=== PATIENT | female | born 1990 | race Caucasian/White ===

== ENCOUNTER → 2020-03-09 | Outpatient (CLI) | payer OTHER, MEDICAID, SELFPAY ==
[2020-02-23 10:11] VITALS: BMI 23.7
--- NOTE | 2020-03-09 12:56 | ECHOD_ITS ---
Version 2 Reason For Study: VSD Procedure This was a 2D Doppler, Color Flow transthoracic echocardiogram. Exam performed in department. Left Ventricle Normal LV size. Small membranous VSD noted. Left ventricular systolic function is normal. The estimated ejection fraction is 65 %. No regional wall motion abnormalities noted. Right Ventricle Normal RV size. Normal systolic function. Atria Normal left atrium. Normal right atrium. Mitral Valve Normal mitral valve. Tricuspid Valve Normal tricuspid valve. Mild tricuspid valve insufficiency. Pulmonary artery systolic pressure is 34 mmHg. Aortic Valve Normal aortic valve. Trisinus/trileaflet aortic valve. Pulmonic Valve Normal pulmonic valve. Great Vessels Normal aortic root. The pulmonary artery is normal size. Normal inferior vena cava. Pericardium/Pleural No pericardial effusion. MMode/2D Measurements & Calculations LVIDd: 4.6 cm IVSd: 0.76 cm Ao root diam: 2.7 cm LVIDs: 3.1 cm LVPWd: 0.82 cm RVDd: 3.5 cm FS: 32.9 % LAV(MOD-bp): 46.9 ml LVAd ap4: 31.0 cm2 SV(MOD-sp4): 48.5 ml LAV(MOD-bp) Indexed: 26.2 ml/m2 EDV(MOD-sp4): 89.7 ml LAV(MOD-sp2): 36.9 ml EDV(sp4-el): 93.7 ml LAV(MOD-sp4): 54.3 ml LVAs ap4: 18.5 cm2 ESV(MOD-sp4): 41.1 ml ESV(sp4-el): 42.0 ml EF(MOD-sp4): 54.1 % EF(sp4-el): 55.2 % SV(sp4-el): 51.8 ml LA A4 area: 19.5 cm2 LA dimension(2D): 3.1 cm RA A4 area: 12.8 cm2 Time Measurements MV dec time: 0.19 sec Doppler Measurements & Calculations MV E max jacek: 100.1 cm/sec Lat Peak E' Jacek: 16.1 cm/sec Med Peak E' Jacek: 11.5 cm/sec MV A max jacek: 85.0 cm/sec E/E' lat: 6.2 E/E' med: 8.7 MV E/A: 1.2 Ao V2 max: 140.8 cm/sec LV V1 max: 119.5 cm/sec PA V2 max: 139.5 cm/sec Ao max P.9 mmHg LV V1 max P.7 mmHg PI end-d jacek: 92.6 cm/sec TR max jacek: 271.1 cm/sec TR max P.9 mmHg Interpretation Summary Normal LV size. Left ventricular systolic function is normal. The estimated ejection fraction is 65 %. Small membranous VSD noted Pulmonary artery systolic pressure is 34 mmHg. Ordering Physician: Leonardo Navarrete Referring Physician: GRISELDA ZAFAR III Performed By: Irma Mar, RDCS, RVT
== END | disposition home or self-care (01) ==
LOC: CVS 12:56
PROVIDERS: PCP Family Medicine; Referring Provider Internal Medicine Cardiovascular Disease; Visit Provider Internal Medicine Cardiovascular Disease
DX: Q21.0 Ventricular septal defect (principal)
CPT/HCPCS: 93306

== ENCOUNTER 2020-03-12 09:10 | Emergency (ER) | payer OTHER, MEDICAID, SELFPAY ==
[2020-02-23 10:11] VITALS: BMI 23.7
[2020-03-12 09:11] VITALS: BP 139/89; PULSE 115; RESP 16; TEMP 36.4; O2SAT 100; BMI 22.1
[2020-03-12 09:57] LABS: Bacteria 0 SEEN /hpf (None Seen); Color, Urine Yellow (Yellow); Glucose, Dipstick Normal (Normal); Ketone-Dipstick 5 mg/dl (Negative); Leukocyte Esterase-Dipstick 500 /ul (Negative); Mucous, Urine 0 SEEN /hpf (<or=2+); Nitrite-Dipstick Negative (Negative); Occult Blood-Urine 10 /ul (Negative); Protein-Dipstick Negative (Negative); Red Blood Cells-Urine 0 SEEN /hpf (0-5); Urine Bilirubin Dipstick Negative (Negative); Urine Clarity Clear (Clear); Urine Urobilinogen Normal (Normal); Urine pH 6.5 (5.0 - 8.0)
[2020-03-12 10:03] LABS: Squamous Epithelial Cells - UA 0-5 SEEN /hpf (5-10); White Blood Cells 0-5 SEEN /hpf (0-5)
[2020-03-12] MEDS: 0.9% Normal Saline 1,000 ML 1000 ML IV (10:16)
[2020-03-12] MEDS: Ondansetron 4 MG/2 ML Vial IV (10:16)
--- NOTE | 2020-03-12 10:17 | ED.VIS.GEN ---
History of Present Illness Chief Complaint: Cold Sx Informant: Patient, Family Onset: Days Current Severity: Mild Maximum Severity: Mild Narrative: Patient reports she is about 15 weeks , G4, P3 uncomplicated to date she reports vomiting and diarrhea nasal congestion since , her been uncomplicated she has a live IUP based on evaluation by outpatient providers, no vaginal bleeding no abdominal pain diarrhea is copious has gotten slightly better but the vomiting has persisted and she is developed rhinorrhea. She has had no exposure to coronavirus that she knows of tainted food or sick individuals she has no GI history ailment except she reports as a youth she had pyloric stenosis surgery and she has a VSD that is stable Past Medical History - Allergies and Home Meds Allergies/Adverse Reactions: Allergies cephalexin Allergy (Verified 03/12/20 09:15) blisters latex Allergy (Verified 03/12/20 09:15) Rash Primary Care Physician: Clarke Platt III, MD [Primary Care Provider] - Past Medical History: - - Includes as above Smoking Status: Never smoker Review of Systems General: Denies: Chills, Fever, Sweats Eyes: Denies: Visual changes - bilaterally, Diplopia ENT: Reports: Rhinorrhea. Denies: Sore throat Cardiovascular: Denies: Chest pain, Palpitations Respiratory: Denies: Dyspnea, Cough, Dyspnea on exertion Gastrointestinal: Reports: Vomiting, Diarrhea. Denies: Abdominal pain, Nausea, Melena, Hematochezia Genitourinary: Denies: Dysuria, Hematuria, Frequency Musculoskeletal: Denies: Back pain, Extremity Pain Skin: Denies: Rash, Wounds Neurological: Denies: Headache, Weakness, Numbness Physical Exam Vital Signs/Narrative: Vital Signs Temp Pulse Resp BP Pulse Ox 03/12/20 09:11 97.6 F L 115 H 16 139/89 H 100 General: Well nourished, Well developed, No Acute Distress Head: Normocephalic, Atraumatic Eyes: Perrl, EOMI ENT: Moist mucous membranes, No rhinorrhea Neck: Supple, Nontender Cardiovascular: Regular rate, Regular rhythm, No murmurs Respiratory: No distress, CTA bilaterally, Chest nontender Abdomen: Soft, Nontender, Nondistended, Normal bowel sounds Back: Nontender, Normal Inspection Extremities: Nontender, No edema Skin: Normal color, No rash Neurological: Alert, Oriented x3, Cranial nerves II-XII grossly intact, Normal Strength, Normal Sensation Psychological: Normal affect, Normal Mood Diagnostic/Tx/Re-eval - Medical Decision Making physical exam is unremarkable HEENT chest abdomen unremarkable, clinically she looks well the diarrhea has stopped no antibiotics at this time she undergo ED evaluation to include IV fluid screening labs UA COVID screen COVID screen was negative all labs are unremarkable UA 1010 urine, she is received IV fluids taking oral fluids without difficulty no vomiting, Complain bitterly of nasal congestion and rhinorrhea as she thinks that is triggering the symptoms, reports that apparently she sat under pine trees there was quite a bit of pollen she is allergic to the above, she is complaining of the rhinorrhea so she was given Afrin nasal spray that helped quite a bit on reevaluation she is resting comfortably in bed states she feels better she is comfortable discharge home on Zofran forcing fluids vanessa and following up with her OBs Friday and return for change in symptoms Home stable Final impression rhinorrhea nasal congestion vomiting diarrhea 15 weeks symptoms improved G4, P3 ED Disposition - Plan for ED Patient: Diagnosis: Vomiting affecting Instructions: ED Nausea Vomiting Adult, Hyperemesis Gravidarum (Severe Morning Sickness) Prescriptions: Ondansetron [Zofran Odt] 4 mg PO Q8H PRN PRN #10 tab PRN Reason: Nausea Prescription Printed Referrals: Clarke Platt III, MD [Primary Care Provider] -
[2020-03-12 10:24] LABS: Absolute Lymphocyte Count 0.98 X10^3/uL (0.83-4.51); Absolute Neutrophil Count 6.1 X10^3/uL (2.0-7.7); Basophil# 0.03 X10^3/uL; Basophil% 0.4 % (0-1); Eosinophil# 0.23 X10^3/uL; Eosinophils% 2.9 % (0-5); Hematocrit 37.2 % (37-47); Lymphocyte # 0.98 X10^3/ul (4.0); Lymphocyte % 12.4 % (19-41); Mean Corp Hgb Conc 34.9 g/dL (32-36); Mean Corpuscular Hgb 30.7 pg (27.0-32.0); Mean Corpuscular Volume 87.7 fL (81-99); Mean Platelet Vol. 9.5 fl (6.2-12.0); Monocyte% 6.3 % (0-10); NRBC Flagged by Analyzer 0 % (0-5); Neutrophil # 6.11 X10^3/uL (2.7-7.7); Neutrophil % 77.4 % (47-70); Platelet Count 245 K/mm3 (150-450); RBC Distribution Width CV 12.8 % (11.6-14.6); RBC Distribution Width SD 40.6 fl (35.1-43.9); Red Blood Count 4.24 M/mm3 (4.2-5.4); White Blood Count 7.9 K/mm3 (4.4-11.0)
[2020-03-12 10:37] LABS: Anion Gap 8 (5-15); BUN 6 mg/dL (7-18); BUN/Creat Ratio 7.7 RATIO (10-20); Calcium,Total 8.8 mg/dL (8.5-10.1); Chloride 109 mmol/L (98-107); Creatinine, Serum 0.78 mg/dL (0.55-1.02); EST Glomerular Filtration Rate 92 mL/min (>60); Est Glom Filt Rate - Afr Amer 111 mL/min (>60); Estimated Creatinine Clearance 105.42 ml/min; Glucose 107 mg/dL (74-106); Potassium 3.1 mmol/L (3.5-5.1); Sodium Level 139 mmol/L (136-145)
[2020-03-12 11:01] LABS: hCG Titer Quant., Serum 40495 mIU/mL (1-3)
[2020-03-12] MEDS: Oxymetazoline 0.05% 1 SPRAY SPRAY.BTL 2 SPRAY NASAL (11:12)
[2020-03-12 11:41] LABS: Probe Check PASS; Specimen Processing Control PASS
[2020-03-12 12:56] VITALS: BP 120/68; PULSE 80; RESP 18; O2SAT 98
== END 2020-03-12 13:03 | disposition home or self-care (01) ==
LOC: ED 10:26
PROVIDERS: Physician Assistant Medical; Emergency Provider Emergency Medicine; PCP Family Medicine
DX: O21.9 Vomiting of pregnancy, unspecified (principal); O99.89 Other specified diseases and conditions complicating pregnancy, childbirth and the puerperium; R19.7 Diarrhea, unspecified; R09.81 Nasal congestion; J34.89 Other specified disorders of nose and nasal sinuses; Z3A.15 15 weeks gestation of pregnancy
CPT/HCPCS: 80048; 81001; 84702; 85025; 87635; 96361; 96374; 99283; G2023; J7030; A4216; J2405; U0003

== ENCOUNTER 2020-08-16 10:55 | Outpatient (CLI) | payer OTHER, MEDICAID, SELFPAY ==
[2020-08-16 11:12] VITALS: BP 124/91; PULSE 104; TEMP 37; O2SAT 99
[2020-08-16] MEDS: Lactated Ringers 1,000 ML 125 ML IV (11:20)
[2020-08-16 11:32] VITALS: BMI 27.8
[2020-08-16 11:55] VITALS: BP 127/81; PULSE 80
--- NOTE | 2020-08-16 12:20 | OB.TRI.NOTE ---
History of Present Illness Date of Service: 08/16/20 Was patient seen by the physician?: Yes Reason For Visit: VERSION Date of Service: 08/16/20 Final KI: 09/03/20 Gestational age: 37 Weeks and 3 Days History of Present Illness: 30 YOF multigravida for a version for breech. US confirms vtx. F/u in office in 2 days as scheduled or prn. Cervix /60/-4, unengaged. Allergies cephalexin Allergy (Verified 08/16/20 11:34) blisters latex Allergy (Verified 08/16/20 11:34) Rash sertraline [From Zoloft] Allergy (Verified 08/16/20 11:34) suicidal pediatric cocktail Allergy (Uncoded 08/16/20 11:35) stopped her heart total of 3 medications for anesthesia - Pertinent Past Medical History Medical History: Past Medical History (Last Reviewed 02/23/20 @ 14:[address] Leonardo Navarrete MD) VSD (ventricular septal defect) (Chronic) History of pre-eclampsia in prior , currently (Chronic) Anxiety and depression GBS carrier History of herpes genitalis Insomnia Intractable chronic migraine without aura Pyloric stenosis Surgical History: Past Surgical History (Last Reviewed 02/23/20 @ 14:[address] Leonardo Navarrete MD) History of wisdom tooth extraction Physical Exam Vitals: Vital Signs Temp Pulse BP Pulse Ox 98.6 F 80 127/81 H 99 08/16/20 11:12 08/16/20 11:55 08/16/20 11:55 08/16/20 11:12 NST - FHR Rate Baby A Baseline: normal Variability:: Moderate Accelerations:: 15 x 15 Decelerations:: None NST Reactive:: Yes FHR Category:: Category I Uterine Activity:: irreg ctxs
== END 2020-08-16 12:25 | disposition home or self-care (01) ==
LOC: WPOUT 11:25 → WP 12:23
PROVIDERS: PCP Family Medicine; Visit Provider Obstetrics & Gynecology
DX: O32.1XX0 Maternal care for breech presentation, not applicable or unspecified (principal); Z3A.37 37 weeks gestation of pregnancy
CPT/HCPCS: 96360; 59025; 59050; 76815; 99218; J7120; G0378

== ENCOUNTER → 2020-08-30 17:32 | Outpatient (CLI) | payer OTHER, MEDICAID, SELFPAY ==
[2020-08-16 11:32] VITALS: BMI 27.8
== END ==
PROVIDERS: PCP Family Medicine; Visit Provider Obstetrics & Gynecology
DX: Z03.818 Encounter for observation for suspected exposure to other biological agents ruled out (principal)
CPT/HCPCS: 87426; C9803

== ENCOUNTER 2020-08-31 06:45 | Inpatient (IN) | payer OTHER, MEDICAID, SELFPAY ==
[2020-08-31] VITALS (31 sets, daily range): BP systolic 101–144; BP diastolic 60–92; PULSE 71–111; RESP 16; TEMP 36.3–37.4; O2SAT 96–98; BMI 29.2
[2020-08-31 07:58] LABS: Absolute Lymphocyte Count 2.69 X10^3/uL (0.83-4.51); Absolute Neutrophil Count 7.8 X10^3/uL (2.0-7.7); Basophil# 0.05 X10^3/uL; Basophil% 0.4 % (0-1); Eosinophil# 0.19 X10^3/uL; Eosinophils% 1.7 % (0-5); Hematocrit 40.2 % (37-47); Hemoglobin 13.6 g/dL (12.0-15.0); Lymphocyte # 2.69 X10^3/ul (4.0); Lymphocyte % 23.4 % (19-41); Mean Corp Hgb Conc 33.8 g/dL (32-36); Mean Corpuscular Hgb 30.6 pg (27.0-32.0); Mean Corpuscular Volume 90.3 fL (81-99); Mean Platelet Vol. 10.9 fl (6.2-12.0); Monocyte% 5.2 % (0-10); NRBC Flagged by Analyzer 0 % (0-5); Neutrophil # 7.79 X10^3/uL (2.7-7.7); Neutrophil % 67.7 % (47-70); Platelet Count 225 K/mm3 (150-450); RBC Distribution Width CV 12.9 % (11.6-14.6); RBC Distribution Width SD 42.2 fl (35.1-43.9); Red Blood Count 4.45 M/mm3 (4.2-5.4); White Blood Count 11.5 K/mm3 (4.4-11.0)
[2020-08-31] MEDS: Lactated Ringers 1,000 ML 50 ML IV (08:01)
[2020-08-31] MEDS: Oxytocin 30 units/NS 500 ml 30 UNITS/500 ML IV.SOLN IV (08:02)
[2020-08-31 08:15] LABS: AST(SGOT) 27 U/L (15-37); Alanine Aminotransfer ALT/SGPT 25 U/L (13-56); Creatinine, Serum 0.74 mg/dL (0.55-1.02); EST Glomerular Filtration Rate 97 mL/min (>60); Est Glom Filt Rate - Afr Amer 117 mL/min (>60); Estimated Creatinine Clearance 94.25 ml/min
[2020-08-31] MEDS: Mag Hydrox/Al Hydrox/Simeth 30 ML UDC PO (08:19)
--- NOTE | 2020-08-31 09:53 | PCM.PN.BLA ---
Progress Note Cvx 2/50/-2, head well applied. AROM performed in usual fashion for clear fluid. Bloody show with cervical exam. Cont pit IOL. STROKE Vital Signs/Narrative: Vital Signs Temp Pulse BP Pulse Ox 08/31/20 08:45 87 127/77 H 97 08/31/20 07:59 99.1 F 87 128/83 H 97
--- NOTE | 2020-08-31 14:06 | PCM.HP.OB ---
History Date of Admission: 08/31/20 - L&D triage Final KI: 09/06/20 Final KI Source: US <20 weeks Gestational age: 39 Weeks and 1 Days History of this : This is a 30 year-old, -1-0-3 presents at 39 1/7 weeks gestation for e labor due to mild gestational hypertension. Her blood pressures have trended up over the last 2 weeks. She denies any headache or visual disturbances. No epigastric pain. She has had good movement. No vaginal bleeding or leaking of fluid. is complicated to date by history of preeclampsia in her prior , nausea and vomiting of , history of herpes genitalis, she has been on HSV prophylaxis and denies any signs or symptoms of an outbreak. Medical History: Medical History (Last Reviewed 02/23/20 @ 14:[address] Leonardo Navarrete MD) VSD (ventricular septal defect) (Chronic) Q21.0 History of pre-eclampsia in prior , currently (Chronic) O09.299 Anxiety and depression F41.9, F32.9 GBS carrier Z22.330 History of herpes genitalis Z86.19 Insomnia G47.00 Intractable chronic migraine without aura G43.719 Pyloric stenosis K31.1 Surgical History: Surgical History (Last Reviewed 02/23/20 @ 14:[address] Leonardo Navarrete MD) History of wisdom tooth extraction K08.409 Allergies cephalexin Allergy (Verified 08/31/20 07:16) blisters latex Allergy (Verified 08/31/20 07:16) Rash sertraline [From Zoloft] Allergy (Verified 08/31/20 07:16) suicidal pediatric cocktail Allergy (Uncoded 08/31/20 07:16) stopped her heart total of 3 medications for anesthesia Home Medications: Home Medications prenat.vits,valeri,[id number] 1 tab PO DAILY 02/22/20 topiramate 50 mg tablet 50 mg PO BID 02/22/20 Aspirin [Aspirin, Baby] 81 mg PO DAILY@0800 08/16/20 Ergocalciferol [Vitamin D] 5,000 unit PO DAILY 08/16/20 Ondansetron HCl [Zofran] 4 mg PO 08/16/20 SimETHICONE [Mylicon] 80 mg PO BID 08/16/20 Acyclovir 08/31/20 Smoking Status: Never smoker History Past Pregnancies: Past Pregnancies Delivery Date Name GA/ Weeks Outcome Route Wt Infant Sex Labor Length Anesthesia Delivery Location Provider FOB Expected Infant Delivery Method: Spontaneous Vaginal Review of Systems Constitutional: Denies: Anorexia, Chills, Fever Eyes: Denies: Blurred vision Cardiovascular: Denies: Chest Pain Respiratory: Denies: Cough, Shortness of breath at rest Gastrointestinal: Reports: Dyspepsia Genitourinary: Denies: Dysuria Gynecological: Denies: Vaginal discharge, Vaginal itching Skin: Denies: Rash Neurological: Denies: Blurred vision, Double vision, Change in Speech, Slurred speech, Confusion Hematologic/ Lymphatic: Denies: Anemia, Hx of blood clot Physical Exam Vitals: Vital Signs Temp Pulse BP Pulse Ox 98.3 F 71 129/83 H 97 08/31/20 13:26 08/31/20 13:26 08/31/20 13:26 08/31/20 13:26 General: Alert, Cooperative, No apparent distress Cardiovascular: Regular rate Lungs: Normal air movement Abdomen: Soft, Non Tender, Non-Distended, Appropriate for Gestational Age Extremities:: Deep tendon reflexes - 3+, Other - edena1+ Neurological: Cranial nerves II-XII grossly intact. Negative for: Slurred Speech [employer]: Normal external genitalia Estimated gestational size: Appropriate for gestational size Presentation: Cephalic Assessment/Plan All Active Problems (Last Reviewed 02/23/20 @ 14:[address] Leonardo Navarrete MD) 12 weeks gestation of (Acute) Fatigue (Acute) This is a 30 year-old, @ 39 1/7 weeks for induction for gest HTN, no evidence of preeclampsia. Estimated weight is less than 4500 g clinically and pelvis is clinically adequate to expect vaginal delivery. May have epidural if needed. Pitocin and AROM for induction of labor.
[2020-08-31] MEDS: fentaNYL 100 MCG/2 ML Ampul IV (15:00)
[2020-08-31] MEDS: 0.9% Saline Lock 10 ML Syringe IV (15:01)
[2020-08-31] MEDS: Lactated Ringers 500 ML 999 ML IV (15:50)
[2020-08-31] MEDS: Amnioinfusion- 0.9% NS 1,000 ML IV.SOLN. 300 ML INTRA-UTER (16:46)
[2020-08-31] MEDS: Ondansetron 4 MG/2 ML Vial IV (16:47)
--- NOTE | 2020-08-31 16:53 | PN.OBGYN_ITS ---
Subjective: Patient seen at bedside. Just assumed care of patient from Dr. Hatch. Patient is currently in hands and knees position rocking back and forth. Unmedicated labor at this time. Patient breathing well through contractions. Objective: / category 2 strip with variables and early decelerations - Physical Exam Vitals/I&O's: Vital Signs Temp Pulse BP Pulse Ox 99.0 F 98 135/83 H 98 08/31/20 15:07 08/31/20 16:08 08/31/20 16:08 08/31/20 15:06 Weight: 170 lb 10.205 oz Body Mass Index (BMI) 29.2 Intake and Output for Last 24 Hours 08/29/20 08/30/20 08/31/20 23:59 23:59 23:59 Intake Total 860.06 / 860.06 Balance 860.06 / 860.06 General: Alert, Oriented x3 Lungs: Normal air movement Cardiovascular: Regular rate Abdomen: Soft, Non Tender, Gravid Musculoskeletal: No Tenderness to Palpation of Joints or Extremities Neurological: Cranial nerves II-XII grossly intact Laboratory Results 08/31/20 07:30: WBC 11.5 H, RBC 4.45, Hgb 13.6, Hct 40.2, MCV 90.3, MCH 30.6, MCHC 33.8, RDW Std Deviation 42.2, RDW Coeff of David 12.9, Plt Count 225, MPV 10.9, Immature Gran % (Auto) 1.600 H, Neut % (Auto) 67.7, Lymph % (Auto) 23.4, [place] % (Auto) 5.2, Eos % (Auto) 1.7, Baso % (Auto) 0.4, Absolute Neuts (auto) 7.8 H, Absolute Lymphs (auto) 2.69, Nucleated RBC % 0 08/31/20 07:30: Blood Type B POSITIVE, Antibody Screen NEGATIVE 08/31/20 07:30: Creatinine 0.74, Estim Creat Clear Calc 94.25, Est GFR (MDRD) Af Amer 117, Est GFR (MDRD) Non-Af 97, Uric Acid 5.0, AST 27, ALT 25 Current Medications Acetaminophen (Acetaminophen 500 Mg Tablet) 500 - 1,000 mg PO Q6H PRN PRN PRN Reason: Pain Score 1-3 Al Hydroxide/Mg Hydroxide (Mag Hydrox/Al Hydrox/Simeth 30 Ml Udc) 15 - 30 ml PO Q4H PRN PRN PRN Reason: INDIGESTION Last Admin: 08/31/20 08:19 Dose: 30 ml Documented by: Citric Acid/Sodium Citrate (Sodium Citrate/Citric Acid 30 Ml Udc) 30 ml PO X1 PRN PRN Reason: Section Fentanyl Citrate (Fentanyl 100 Mcg/2 Ml Ampul) 25 - 50 mcg IV Q2H PRN PRN PRN Reason: Pain Score 4-10 Last Admin: 08/31/20 15:00 Dose: 50 mcg Documented by: Lactated Ringer's () 500 mls @ 999 mls/hr IV .Q31M PRN PRN Reason: Epidural Lactated Ringer's () 500 mls @ 999 mls/hr IV .Q31M PRN PRN Reason: Corrective Measures Last Admin: 08/31/20 15:50 Dose: 999 mls/hr Documented by: Lactated Ringer's () 1,000 mls @ 50 mls/hr IV .Q20H [facility] Last Infusion: 08/31/20 15:50 Dose: 0 mls/hr Documented by: Oxytocin/Sodium Chloride () 30 units in 500 mls @ 2 mls/hr IV .Q250H [facility] Last Infusion: 08/31/20 16:04 Dose: 6 mls/hr Documented by: Penicillin G Potassium/Dextrose (Penicillin G Potassium) 3 mu in 50 mls @ 100 mls/hr IV Q4H [facility] Last Infusion: 08/31/20 12:45 Dose: Infused Documented by: Ondansetron HCl (Ondansetron 4 Mg/2 Ml Vial) 4 mg IV Q4H PRN PRN PRN Reason: NAUSEA Last Admin: 08/31/20 16:47 Dose: 4 mg Documented by: Prochlorperazine Edisylate (Prochlorperazine 10 Mg/2 Ml Vial) 10 mg IV Q6H PRN PRN PRN Reason: NAUSEA Sodium Chloride (0.9% Saline Lock 10 Ml Syringe) 10 - 40 ml IV X1 PRN PRN Reason: SALINE FLUSH Last Admin: 08/31/20 15:01 Dose: 10 ml Documented by: Sodium Chloride (Amnioinfusion- 0.9% Ns 1,000 Ml Iv.Soln.) 300 ml INTRA-UTER X1 ONE Stop: 08/31/20 16:30 Medical Necessity - Tobacco Use Smoking Status: Never smoker Assessment/Plan All Active Problems (Last Reviewed 02/23/20 @ 14:[address] Leonardo Navarrete MD) 37 weeks gestation of (Acute) 39 weeks gestation of (Acute) 12 weeks gestation of (Acute) Fatigue (Acute) at 39.1 weeks gestation for induction of labor Category 2 tracing with variable and early decelerations Position changes Amnio infusion started Pitocin stopped Dr. Velazquez notified and is collaborating physician Anticipate
[2020-08-31] MEDS: Lactated Ringers 1,000 ML 200 ML IV (18:18)
[2020-08-31] MEDS: Oxytocin 30 units/NS 500 ml 30 UNITS/500 ML IV.SOLN 999 UNITS IV (19:16)
--- NOTE | 2020-08-31 19:30 | PCM.OPRPT ---
Report of Operation Date of Procedure: 08/31/20 Vaginal Delivery Maternal Presentation: Medically Indicated Induction at 39.1 weeks gestation for induction of labor for gestational hypertension. Method of Induction: Pitocin, Amniotomy Medical Reason for Induction: Gestational Hypertension Amniotic Membrane Rupture Type: Artificial Rupture of Membrane time: 948 Amniotic Fluid Description: Clear Final KI: 09/06/20 Gestational age: 39 Weeks and 1 Days Date of Procedure: 08/31/20 Pre-Operative Diagnosis: Term gestation, GHT Surgery/ Procedure Performed: Spontaneous Vaginal Delivery Type of Anesthesia: None Description of Procedure: Patient quickly progressed to complete dilation with urge to push. head delivered with minimal maternal effort followed by anterior shoulder and remainder of . vigorous and placed on maternal abdomen. Nursing staff attended to . Pitocin IV started for active management of the third stage. Delayed cord clamping completed for 2 minutes. Cord cut by FOB without difficulty and placed immediately skin to skin. Placenta delivered spontaneously and intact. After inspection, no vaginal or perineal lacerations noted. Vaginal sweep was completed by myself. All instruments and sponges accounted for. EBL- 200 cc APGARS 8/9. Fundus firm and bleeding hemostatic. Presentation: Vertex, KALANI Placental Delivery Description: Spontaneous Placenta Disposition: [facility] Cord Vessel Description: 3 Vessels Nuchal Cord Compression: Without compression Cord Entanglement: Around neck x 1, loose Estimated Blood Loss: 200 cc A gender: Female - Kika Francois (1 minute): 8 (5 minute): 9 Episiotomy Description: None Laceration: None Medications given after delivery: IV Pitocin Complications: None
[2020-08-31] MEDS: Ibuprofen 600 MG Tablet PO (20:27)
[2020-08-31] MEDS: Topiramate 50 MG Tablet PO (23:12)
[2020-09-01] VITALS (11 sets, daily range): BP systolic 96–135; BP diastolic 56–88; PULSE 62–96; RESP 14–18; TEMP 35.9–37.1
[2020-09-01] MEDS: Ibuprofen 600 MG Tablet PO ×4 (03:49→22:33)
[2020-09-01] MEDS: Ondansetron 8 MG Tablet 4 MG PO (05:39)
--- NOTE | 2020-09-01 08:47 | PCM.PN.OB ---
- Physical Exam Vitals/I&O's: Vital Signs Temp Pulse Resp BP Pulse Ox 97.5 F L 82 18 113/58 L 96 09/01/20 03:51 09/01/20 03:51 09/01/20 03:51 09/01/20 03:51 08/31/20 17:57 Weight: 170 lb 10.205 oz Body Mass Index (BMI) 29.2 Intake and Output for Last 24 Hours 08/30/20 08/31/20 09/01/20 23:59 23:59 23:59 Intake Total 2333.33 / 2333.33 Output Total 400 / 400 Balance 1933.33 / 1933.33 General: Alert, Oriented x3, Cooperative HEENT: Atraumatic, Normocephalic Lungs: Clear to auscultation, Normal air movement, No rhonchi, No wheeze Cardiovascular: Regular rate, Regular Rhythm, No murmurs Abdomen: Bowel Sounds Present, Soft - appropriately tender. Fundus firm 1 below U Extremities: No edema - No clonus. +2/4 bilateral DTR Psych/Mental Status: Normal Affect, Appropriate Laboratory Results 08/31/20 07:30: Blood Type B POSITIVE, Antibody Screen NEGATIVE Current Medications Acetaminophen (Acetaminophen 500 Mg Tablet) 1,000 mg PO Q8H PRN PRN PRN Reason: Pain Score 1-3 Bisacodyl (Bisacodyl 10 Mg Suppository) 10 mg RECTAL UD PRN PRN Reason: If no BM Dibucaine (Dibucaine 30 Gm Tube) 1 applic TOPICAL TID PRN PRN; Protocol PRN Reason: Discomfort Hydrocortisone (Hydrocortisone 2.5% Crm) 1 applic TOPICAL TID PRN PRN; Protocol PRN Reason: Discomfort Ibuprofen (Ibuprofen 600 Mg Tablet) 600 mg PO Q6H PRN PRN PRN Reason: Pain Score 1-3 Last Admin: 09/01/20 03:49 Dose: 600 mg Documented by: Methylergonovine Maleate (Methylergonovine 0.2 Mg/Ml Ampul) 0.2 mg IM X1 PRN PRN Reason: Excess bleeding/uterine atony Ondansetron HCl (Ondansetron 4 Mg/2 Ml Vial) 4 mg IV Q4H PRN PRN PRN Reason: Nausea Ondansetron HCl (Ondansetron 8 Mg Tablet) 4 mg PO BID PRN PRN PRN Reason: NAUSEA Last Admin: 09/01/20 05:39 Dose: 4 mg Documented by: Senna/Docusate Sodium (Senna/Docusate Sodium 1 Tablet) 1 - 2 tablet PO DAILY PRN PRN PRN Reason: Constipation Simethicone (Simethicone 80 Mg Tablet) 80 mg PO PCHS PRN PRN Reason: Indigestion/Stomach pain Last Admin: 09/01/20 00:57 Dose: 80 mg Documented by: Sodium Chloride (0.9% Saline Lock 10 Ml Syringe) 5 - 15 ml IV UD PRN PRN Reason: SALINE FLUSH Topiramate (Topiramate 50 Mg Tablet) 50 mg PO BID EUNICE Last Admin: 08/31/20 23:12 Dose: 50 mg Documented by: Medical Necessity - Tobacco Use Smoking Status: Never smoker Assessment/Plan All Active Problems (Last Reviewed 02/23/20 @ 14:[address] Leonardo Navarrete MD) 39 weeks gestation of (Acute) 37 weeks gestation of (Acute) 12 weeks gestation of (Acute) Fatigue (Acute) A:PPD #1 P: 1) Routine care 2) support 3) BP stable 4) Plan D/C home this evening if patient desires. Follow up in 2 weeks and 6 weeks 5) Pain controlled
[2020-09-01] MEDS: Mag Hydrox/Al Hydrox/Simeth 30 ML UDC PO ×3 (09:35→20:25)
[2020-09-01] MEDS: Topiramate 50 MG Tablet PO ×2 (09:36→22:33)
--- NOTE | 2020-09-01 10:18 | NURSING ---
0930 temporal temp 97.3 is pt's significant other's temperature automatically charted
--- NOTE | 2020-09-01 10:19 | NURSING ---
0932 pt had elevated bp 132/86; pt was talking and breast feeding. this rn had pt rest/relax and took another bp.
--- NOTE | 2020-09-01 10:41 | DCINST_ITS ---
Discharge Diet: No Restrictions Discharge Activity: Return to Normal Activity, May not drive while taking narcotic pain medications., May Shower May resume sexual activity in: 4-6 weeks Weight Bearing Status: Full weight bearing Additional Activity Instructions:: Nothing in the vagina for 4-6 weeks. You may return to work/school in 6 weeks. Call your doctor if your incision/area has: Continuous Slow Oozing, Sudden Increased Bleeding, Increased Pain/ Swelling, Increased Redness, Foul Smelling Discharge Call your doctor if you observe: Fever of 101 or Higher, Inability to urinate, Inability to have a bowel movement, Using more than one pad per hour, Shortness of breath, Chest pain, Increased palpitations (irregular heartbeat), Calf discomfort, Uncontrolled pain Additional Instructions: If you experience any of the following, contact your healthcare provider. * Bleeding that soaks a pad every hour for 2 hours * Fever 100.4 or higher * Unrelieved incision or abdominal pain * Swelling, redness, discharge or bleeding from your incision or episiotomy site * Your incision begins to separate * Problems urinating (including inability to urinate or burning while urinating). * Visual changes * Severe headache * Flu-like symptoms * Pain or redness in one of both of your breasts * Pain, warmth, tenderness or swelling in your legs, especially the calf area * Frequent nausea and vomiting * Symptoms of depression or anxiety If you experience any of the following, call 911 or go to the nearest Emergency Room. * Chest pain * Problems breathing * Seizure activity * Partial or complete paralysis of a body part, slurred speech, weakness or drooping of the face, or a sudden inability to walk or hold your balance Allergies/Adverse Reactions: Allergies cephalexin Allergy (Verified 08/31/20 07:16) blisters latex Allergy (Verified 08/31/20 07:16) Rash sertraline [From Zoloft] Allergy (Verified 08/31/20 07:16) suicidal pediatric cocktail Allergy (Uncoded 08/31/20 07:16) stopped her heart total of 3 medications for anesthesia Medications to take at Discharge prenat.vits,valeri,[id number] 1 tab PO DAILY 02/22/20 topiramate 50 mg tablet 50 mg PO BID 02/22/20 Ergocalciferol [Vitamin D] 5,000 unit PO DAILY 08/16/20 Acyclovir 08/31/20 Ibuprofen [Motrin] 600 mg PO Q6H PRN PRN tab 09/01/20 Please Follow Up With: Britta Hatch MD When: Call to make an appointment with your doctor in 1 weeks and 6 weeks. If you had elevated Blood Pressure or 4th degree laceration you will need to be seen in 2 weeks. Primary Care Physician: Clarke Platt III, MD [Primary Care Provider] - Test Results: Test results from this visit will be discussed in further detail at your follow- up appointment, if applicable.
--- NOTE | 2020-09-01 12:55 | NURSING ---
pt has not voided in four hours. pt to void and this rn re check fundus
[2020-09-02 01:37] VITALS: TEMP 36.1
[2020-09-02 01:38] VITALS: BP 101/69; PULSE 73
[2020-09-02 01:43] VITALS: BP 101/69; PULSE 73; RESP 16; TEMP 36.1
[2020-09-02] MEDS: Mag Hydrox/Al Hydrox/Simeth 30 ML UDC PO ×2 (03:40→10:29)
[2020-09-02] MEDS: Ibuprofen 600 MG Tablet PO (05:44)
[2020-09-02 08:45] VITALS: BP 110/79; PULSE 77; RESP 14; TEMP 36.8
[2020-09-02 08:55] VITALS: BP 110/79; PULSE 77; TEMP 36.8
[2020-09-02] MEDS: Topiramate 50 MG Tablet PO (10:26)
--- NOTE | 2020-09-02 10:41 | PCM.PN.OB ---
Subjective: Doing well per patient and nursing staff. Ambulating and taking PO without difficulty. Voiding and passing flatus. Pain controlled. Denies any headaches, visual changes, chest pain, shortness of breath or leg pain. Lochia normal. well. - Physical Exam Vitals/I&O's: Vital Signs Temp Pulse Resp BP Pulse Ox 98.2 F 77 14 110/79 96 09/02/20 08:55 09/02/20 08:55 09/02/20 08:45 09/02/20 08:55 08/31/20 17:57 Oxygen Delivery Method Room Air Weight: 170 lb 10.205 oz Body Mass Index (BMI) 29.2 Intake and Output for Last 24 Hours 08/31/20 09/01/20 09/02/20 23:59 23:59 23:59 Intake Total 2333.33 / 2333.33 Output Total 400 / 400 Balance 1933.33 / 1933.33 General: Alert, Oriented x3, Cooperative HEENT: Atraumatic, Normocephalic Neck: Trachea Midline Lungs: Clear to auscultation, Normal air movement, No rhonchi, No wheeze Cardiovascular: Regular rate, Regular Rhythm, No murmurs Extremities: No edema Neurological: Deep Tendon Reflexes 2+/4 and Symmetrical Psych/Mental Status: Normal Affect, Appropriate Current Medications Acetaminophen (Acetaminophen 500 Mg Tablet) 1,000 mg PO Q8H PRN PRN PRN Reason: Pain Score 1-3 Al Hydroxide/Mg Hydroxide (Mag Hydrox/Al Hydrox/Simeth 30 Ml Udc) 15 - 30 ml PO Q4H PRN PRN PRN Reason: INDIGESTION Last Admin: 09/02/20 10:29 Dose: 30 ml Documented by: Bisacodyl (Bisacodyl 10 Mg Suppository) 10 mg RECTAL UD PRN PRN Reason: If no BM Dibucaine (Dibucaine 30 Gm Tube) 1 applic TOPICAL TID PRN PRN; Protocol PRN Reason: Discomfort Hydrocortisone (Hydrocortisone 2.5% Crm) 1 applic TOPICAL TID PRN PRN; Protocol PRN Reason: Discomfort Ibuprofen (Ibuprofen 600 Mg Tablet) 600 mg PO Q6H PRN PRN PRN Reason: Pain Score 1-3 Last Admin: 09/02/20 05:44 Dose: 600 mg Documented by: Methylergonovine Maleate (Methylergonovine 0.2 Mg/Ml Ampul) 0.2 mg IM X1 PRN PRN Reason: Excess bleeding/uterine atony Ondansetron HCl (Ondansetron 4 Mg/2 Ml Vial) 4 mg IV Q4H PRN PRN PRN Reason: Nausea Ondansetron HCl (Ondansetron 8 Mg Tablet) 4 mg PO BID PRN PRN PRN Reason: NAUSEA Last Admin: 09/01/20 05:39 Dose: 4 mg Documented by: Senna/Docusate Sodium (Senna/Docusate Sodium 1 Tablet) 1 - 2 tablet PO DAILY PRN PRN PRN Reason: Constipation Simethicone (Simethicone 80 Mg Tablet) 80 mg PO PCHS PRN PRN Reason: Indigestion/Stomach pain Last Admin: 09/02/20 09:04 Dose: 80 mg Documented by: Sodium Chloride (0.9% Saline Lock 10 Ml Syringe) 5 - 15 ml IV UD PRN PRN Reason: SALINE FLUSH Topiramate (Topiramate 50 Mg Tablet) 50 mg PO BID EUNICE Last Admin: 09/02/20 10:26 Dose: 50 mg Documented by: Medical Necessity - Tobacco Use Smoking Status: Never smoker Assessment/Plan All Active Problems (Last Reviewed 02/23/20 @ 14:[address] Leonardo Navarrete MD) 39 weeks gestation of (Acute) 37 weeks gestation of (Acute) 12 weeks gestation of (Acute) Fatigue (Acute) A:PPD #2 Gestational HTN P: 1) Routine care and information 2) Follow up for BP next week and 6 week for visit 3) BP stable 4) Discharge home
== END 2020-09-02 13:05 | disposition home or self-care (01) | DRG 807 ==
PROVIDERS: Admitting Provider Advanced Practice Midwife; PCP Family Medicine; Visit Provider Advanced Practice Midwife
DX: O13.4 Gestational [pregnancy-induced] hypertension without significant proteinuria, complicating childbirth (principal); Z37.0 Single live birth; O69.81X0 Labor and delivery complicated by cord around neck, without compression, not applicable or unspecified; Z3A.39 39 weeks gestation of pregnancy
CPT/HCPCS: 59025; 59050; 82565; 84450; 84460; 84550; 85025; 86850; 86900; 86901; 99218; J7030; J7120; A4216; G0378; J2405

== ENCOUNTER 2021-03-01 21:00 | Emergency (ER) | payer OTHER, MEDICAID, SELFPAY ==
[2020-08-31 07:14] VITALS: BMI 29.2
[2021-03-01 21:01] VITALS: BP 127/81; PULSE 80; RESP 14; TEMP 36; O2SAT 99; BMI 23.8
--- NOTE | 2021-03-01 21:12 | EX.ED.UPPERE ---
HPI History of Present Illness Chief Complaint: Upper Extremity Injury Informant: patient Occured/Mechanism Mechanism/Context: Yes injury Comment: Left upper arm, between a cow who turned his head quickly and the side of a trailer Onset/Context/Timing Timing: Continuous Quality of Pain: Aching Location: left anterior elbow Current Severity: Mild Maximum Severity: Moderate Worsened by: flexion and extension of elbow Relieved by: remaining still, ice pack Associated Symptoms Associated Symptoms: Negative for Parasthesia, Weakness and Loss of Funtion Narrative Narrative: Aelaz-sukq-nbtlwomo female, she got her arm caught between a cow in the wall of a trailer, sustained injury to the anterior aspect of her left elbow where there is bruising, and she denies pain anywhere else in that extremity or elsewhere. [facility] Medical History Anxiety and depression GBS carrier History of herpes genitalis History of pre-eclampsia in prior , currently Insomnia Intractable chronic migraine without aura Pyloric stenosis VSD (ventricular septal defect) Home Medications prenat.vits,valeri,[id number] 1 tab PO DAILY 02/22/20 [History Last Taken 08/16/20 09:30] topiramate 50 mg tablet 50 mg PO BID 02/22/20 [History Last Taken 08/16/20 09:30] ergocalciferol (vitamin D2) 5,000 unit PO DAILY 08/16/20 [History Last Taken Unknown] acyclovir 400 mg PO PRN PRN 08/31/20 [History Last Taken Unknown] ibuprofen 600 mg PO Q6H PRN PRN tab 09/01/20 [Rx Last Taken Unknown] Allergy/AdvReac Type Severity Reaction Status Date / Time cephalexin Allergy blisters Verified 03/01/21 21:01 latex Allergy Rash Verified 03/01/21 21:01 sertraline [From Zoloft] Allergy suicidal Verified 03/01/21 21:01 pediatric cocktail Allergy stopped Uncoded 03/01/21 21:01 her heart Family History Father MTHFR mutation Heart disease Grandmother CAD (coronary artery disease) maternal Grandfather CAD (coronary artery disease) paternal Uncle Heart disease Antiphospholipid antibody syndrome Uncle Heart disease Surgical History History of wisdom tooth extraction Social History Smoking Status: Never smoker caffeine: Yes Type: tea Number of servings: 4 ROS ROS ED Constitutional Constitutional ED: Denies chills or fever(s) Musculoskeletal Musculoskeletal: Reports extremity pain; Denies neck pain Integumentary Denies Abrasions, rash or wounds Neurologic Neurologic: Denies paresthesias or weakness EXAM Physical Exam Const Vital Signs: 03/01/21 21:01 Temperature 96.8 F L Temperature Source Temporal Pulse Rate 80 Respiratory Rate 14 Blood Pressure 127/81 H Blood Pressure Mean 96 Pulse Ox 99 Oxygen Delivery Method Room Air Positive well nourished and well developed General Appearance ED: well developed and NAD Neck full ROM and supple Back/Spine normal ROM and normal to inspection Extremity Extremity Narrative: Ecchymosis with mild tenderness and intact skin just proximal to the left antecubital fossa. No bony elbow tenderness, range of motion limited only at extreme of flexion and extension. Painless supination pronation. No other bony tenderness throughout the left upper extremity, otherwise exam is benign. Neuro oriented x3, no focal motor deficits and no sensory deficits noted Sensorium / Orientation: alert Psych mental status grossly normal and thought process normal Skin no wounds General Skin Exam: ecchymosis Rashes: no rashes MDM MDM MDM Narrative Medical decision making narrative: X-rays of the left elbow were obtained, on my interpretation 3 views x-ray series shows no acute bony abnormalities. Patient is reassured, given instruction for supportive care for contusion of the left upper extremity. She was offered ice pack, analgesics, she declined. Discharge Plan Triage Chief Complaint: Upper Extremity Injury ED Provider: Srini Shah Dx/Rx/DC Orders Clinical Impression: Contusion of arm, left Instructions: ED Contusion, Upper Extremity Prescriptions: No Action prenat.vits,valeri,[id number] Tablet 1 tab PO DAILY RF: 0 topiramate [Topamax] 50 mg tablet 50 mg PO BID RF: 0 ergocalciferol (vitamin D2) 50,000 UNIT capsule 5,000 unit PO DAILY RF: 0 acyclovir 400 MG tablet 400 mg PO PRN PRN (Reason: Rash) RF: 0 ibuprofen 600 MG tablet 600 mg PO Q6H PRN PRN (Reason: Pain Score 1-3) RF: 0 Primary Care Provider: Clarke Platt III Referrals: Clarke Platt III, [Primary Care Provider] - 10-14 Days if not better Disposition Disposition: Home, self care
--- NOTE | 2021-03-01 21:17 | RAD_ITS ---
STUDY: X-RAY - LEFT ELBOW REASON FOR EXAM: Female, 30 years old. injury TECHNIQUE: 3 view(s) of the elbow. COMPARISON: None. FINDINGS: Normal visualized humerus, radius and ulna. Normal radiocapitellar and ulnotrochlear articulations. The soft tissue structures are unremarkable. There is no demonstrated fracture. RAD/Elbow min 3 Views IMPRESSION: Normal x-ray examination of the elbow. Electronically Signed: Niranjan Mejia MD at 21:52 EDT , Service support ,
== END 2021-03-01 21:42 | disposition home or self-care (01) ==
LOC: ED 21:36
PROVIDERS: Emergency Provider Emergency Medicine; PCP Family Medicine
DX: S40.022A Contusion of left upper arm, initial encounter (principal); W23.0XXA Caught, crushed, jammed, or pinched between moving objects, initial encounter; Y93.89 Activity, other specified; Y92.89 Other specified places as the place of occurrence of the external cause; Y99.8 Other external cause status
CPT/HCPCS: 73080; 99282

== ENCOUNTER → 2021-03-28 16:05 | Outpatient (CLI) | payer OTHER, MEDICAID, SELFPAY ==
[2021-03-28 15:11] VITALS: BMI 23.1
[2021-03-28 17:09] LABS: Absolute Lymphocyte Count 2.32 X10^3/uL (0.83-4.51); Absolute Neutrophil Count 4.2 X10^3/uL (2.0-7.7); Basophil# 0.03 X10^3/uL; Basophil% 0.4 % (0-1); Eosinophil# 0.17 X10^3/uL; Eosinophils% 2.4 % (0-5); Hematocrit 40.6 % (37-47); Hemoglobin 13.5 g/dL (12.0-15.0); Lymphocyte # 2.32 X10^3/ul (0.83-4.51); Lymphocyte % 33.1 % (19-41); Mean Corp Hgb Conc 33.3 g/dL (32-36); Mean Corpuscular Hgb 28.8 pg (27.0-32.0); Mean Corpuscular Volume 86.6 fL (81-99); Mean Platelet Vol. 10.1 fl (6.2-12.0); Monocyte% 4.3 % (0-10); NRBC Flagged by Analyzer 0 % (0-5); Neutrophil # 4.15 X10^3/uL (2.7-7.7); Neutrophil % 59.4 % (47-70); Platelet Count 307 K/mm3 (150-450); RBC Distribution Width CV 12.3 % (11.6-14.6); RBC Distribution Width SD 38.7 fl (35.1-43.9); Red Blood Count 4.69 M/mm3 (4.2-5.4)
[2021-03-28 17:49] LABS: Anion Gap 6 (5-15); BUN 17 mg/dL (7-18); BUN/Creat Ratio 17.4 RATIO (10-20); Calcium,Total 9.3 mg/dL (8.5-10.1); Chloride 109 mmol/L (98-107); Creatinine, Serum 0.98 mg/dL (0.55-1.02); EST Glomerular Filtration Rate 70 mL/min (>60); Est Glom Filt Rate - Afr Amer 84 mL/min (>60); Glucose 87 mg/dL (74-106); Potassium 3.9 mmol/L (3.5-5.1); Sodium Level 139 mmol/L (136-145); Thyroid Stim Hormone (TSH) 0.92 uIU/mL (0.358-3.74)
== END ==
PROVIDERS: PCP Family Medicine; Referring Provider Physician Assistant Medical; Visit Provider Physician Assistant Medical
DX: R53.83 Other fatigue (principal)
CPT/HCPCS: 36415; 80048; 84443; 85025

== ENCOUNTER → 2022-01-25 | Outpatient (CLI) | payer MEDICAID, SELFPAY ==
--- NOTE | 2022-01-25 10:26 | MRI_ITS ---
STUDY: MRI BRAIN WITH AND WITHOUT CONTRAST (ATTENTION INTERNAL AUDITORY CANALS - I.A.C.''s) REASON FOR EXAM: Female, 31 years old. UNILATERAL HEARING LOSS TECHNIQUE: Standardized multiplanar fat and water weighted pulse sequences were obtained. ml of 13CC DOTAREM contrast material was administered intravenously for the contrast portion of the examination. COMPARISON: None. FINDINGS: Normal bilateral temporal bones. Normal bilateral internal auditory canals. There is no demonstrated intracanalicular or cisternal vestibular schwannoma (acoustic neuroma). There is no enhancement of the bilateral VIIth or VIIIth cranial nerves. Normal bilateral cochlea, vestibules and semicircular canals. No abnormal enlargement of the vestibules. No no cerebellar pontine angle mass or cyst. No abnormal opacification of the mastoid air cells. No visualized Mondini''s malformation. Normal size of the ventricles and extra-axial spaces for the patient''s age. Normal white matter tracts of the supratentorial brain. There is no evidence for recent intracranial ischemia or other cause of cytotoxic edema on diffusion weighted imaging (DWI). There are no demyelinating plagues of the supratentorial brain, brainstem or cerebellum. There are no findings suspicious for multiple sclerosis (MS). Normal bilateral frontal poles, and orbital frontal and gyrus recti of the frontal lobes. Normal bilateral temporal tips of the temporal lobes. There are no white matter shear injuries (diffuse axonal injuries). There are no parenchymal hemorrhages or hematomas. There are no findings to suggest prior closed head parenchymal injury of the brain. Normal bilateral basal ganglia. Normal thalami. Normal flow voids within the major intracranial circulation suggesting patency by spin echo criteria. Normal venous enhancement. There is no enhancing intra-axial or extra-axial abnormality. No abnormal enhancement or signal within the brain parenchyma or meninges or dura. There is no extra-axial fluid accumulation. Normal sella turcica, pituitary gland, infundibular stalk, optic chiasm and hypothalamus. Normal tectal plate and pineal gland. Normal midbrain, koffi and medulla. Normal cerebellum. Normal basal cisterns. No demonstrated orbital abnormality, within the constraints of a routine brain study. Normal visualized paranasal sinuses. Normal calvarium and skull base. Normal visualized soft tissue structures. Normal visualized upper cervical spine. MRI/Brain W/WO Contrast IMPRESSION: 1. Normal unenhanced and enhanced MRI of the bilateral internal auditory canals (I.A.C''s). 2. No abnormal enlargement of the vestibules. No no cerebellar pontine angle mass or cyst. 3. No abnormal opacification of the mastoid air cells. No visualized Mondini''s malformation. Electronically Signed: Niranjan Mejia MD at 15:57 EDT ,
== END | disposition home or self-care (01) ==
LOC: MRI 10:11
PROVIDERS: PCP Family Medicine; Referring Provider Otolaryngology Otolaryngology/Facial Plastic Surgery; Visit Provider Otolaryngology Otolaryngology/Facial Plastic Surgery
DX: H90.2 Conductive hearing loss, unspecified (principal)
CPT/HCPCS: 70553; A9575

== ENCOUNTER 2022-06-26 20:07 | Observation (INO) | payer MEDICAID, SELFPAY ==
[2022-06-26 20:08] VITALS: BP 109/75; PULSE 133; RESP 18; TEMP 36.6; O2SAT 97; BMI 27.4
--- NOTE | 2022-06-26 20:25 | EX.ED.DYSGE1 ---
HPI History of Present Illness Chief Complaint: Complaint Detail of Chief Complaint: Vomiting and dysuria and back pain Informant: patient Narrative Narrative: Patient presents the emergency department from urgent care for concern for UTI. Patient was being seen there he was patient started with a cough and sore throat and body aches a week ago. Today she has been having nausea and vomited x3. She complaining of body aches and low back pain as well as dysuria. She had a fever up to 102 at urgent care. Patient denies abdominal pain currently. She denies shortness of breath. Prior similar symptoms: No PFSH PFSH Medical History Anxiety and depression Contusion of arm, left GBS carrier History of herpes genitalis History of pre-eclampsia in prior , currently Insomnia Intractable chronic migraine without aura Pyloric stenosis VSD (ventricular septal defect) Home Medications prenat.vits,valeri,[id number]-gyure 1 tab PO DAILY 02/22/20 [History Last Taken 08/16/20 09:30] topiramate 50 mg tablet (Topamax) 50 mg PO BID Check with primary doctor 02/22/20 [History Last Taken 08/16/20 09:30] acyclovir 400 mg tablet 400 mg PO PRN PRN Rash 08/31/20 [History Last Taken Unknown] ibuprofen 600 mg tablet 600 mg PO Q6H PRN PRN Pain Score 1-3 09/01/20 [Rx Last Taken Unknown] cholecalciferol (vitamin D3) 125 mcg (5,000 unit) capsule 125 mcg PO DAILY 03/28/21 [History Last Taken Unknown] Allergy/AdvReac Type Severity Reaction Status Date / Time cephalexin Allergy blisters Verified 06/26/22 20:10 latex Allergy Rash Verified 06/26/22 20:10 sertraline [From Zoloft] Allergy suicidal Verified 06/26/22 20:10 pediatric cocktail Allergy stopped Uncoded 06/26/22 20:10 her heart Family History Father MTHFR mutation Heart disease Grandmother CAD (coronary artery disease) maternal Grandfather CAD (coronary artery disease) paternal Uncle Heart disease Antiphospholipid antibody syndrome Uncle Heart disease Surgical History History of wisdom tooth extraction Social History Smoking Status: Never smoker alcohol intake: never substance use type: does not use caffeine: Yes Type: carbonated beverages and tea Number of servings: 6 ROS ROS ED Review of Systems ROS Unobtainable: other Constitutional Constitutional ED: Reports fever(s) and lethargy; Denies chills, sweats or weight loss Eyes Eyes: Denies blurry vision, change in vision or diplopia ENT ENT ED: Denies rhinorrhea or sore throat Cardiovascular Cardiovascular: Denies chest pain, orthopnea or racing heartbeat Respiratory/Chest Respiratory/Chest: Reports cough; Denies dyspnea, dyspnea on exertion, orthopnea or sputum Gastrointestinal Gastrointestinal: Reports nausea and vomiting; Denies abdominal pain or diarrhea Genitourinary Genitourinary ED: Reports dysuria; Denies hematuria or urinary frequency Musculoskeletal Musculoskeletal: Reports myalgias; Denies arthralgias, back pain or neck pain Integumentary Denies abscess, Abrasions or rash Neurologic Neurologic: Reports headache(s); Denies weakness Psychiatric Psychiatric: Denies anxiety, depression or suicidal thoughts Endocrine Endocrinology: Denies polydipsia, polyphagia or polyuria Hematologic/Lymphatic Hematologic/Lymphatic: Denies easy bleeding, easy bruising or lymphadenopathy Allergic/Immunologic Allergic/Immunologic ED: Denies mouth swelling, tongue swelling or urticaria EXAM Physical Exam Const Vital Signs: 06/26/22 20:08 Temperature 97.9 F Temperature Source Temporal Pulse Rate 133 H Respiratory Rate 18 Blood Pressure 109/75 Blood Pressure Mean 86 Pulse Ox 97 Oxygen Delivery Method Room Air Positive well nourished and well developed General Appearance ED: well developed and NAD HEENT Reports TM's clear and moist mucous membranes normocephalic and atraumatic; Negative for trauma or tenderness Tympanic Membrane ED: Yes TM's clear Eyes PERRL and EOMs intact bilaterally General Eye ED: Negative for pale conjunctiva or scleral icterus Neck no lymphadenopathy, supple and no JVD General: Negative for tenderness Chest Wall inspection of chest normal and palpation of chest normal Chest: Negative for tenderness Resp normal respiratory effort and clear to auscultation bilaterally Effort and Inspection: Negative for respiratory distress or pain with movement Auscultation: Negative for rhonchi, wheezes or diminished lung sounds Cardio regular rate, regular rhythm, S1 normal heart sound, S2 normal heart sound and no murmurs Peripheral Pulses: pulses 2+ throughout GI normal to inspection, nondistended, normoactive bowel sounds, soft to palpation, non-tender, non-distended and no masses Back/Spine no CVA tenderness and no thoracic nor lumbar tenderness Extremity normal to inspection General Extremety ED: Negative for edema General Extremity: Negative for edema Neuro oriented x3, CN's II-XII intact bilaterally, no sensory deficits noted and gait normal Sensorium / Orientation: awake, alert, oriented to person, oriented to place and oriented to time Motor Exam: strength 5/5 throughout and strength abnormal Psych mental status grossly normal Skin no rashes or lesions noted and no wounds MDM MDM MDM Narrative Medical decision making narrative: IV line established on arrival. Patient was given Zofran 4 mg IV. Patient was given normal saline. CBC with differential obtained showed a white count of 14.8. Chemistries unremarkable. hCG was negative. Patient continued to complain of nausea and was given another dose of Zofran. Patient started on IV Cipro. At this point patient not comfortable going home as she continues to feel nauseated and is unsure if she will be able to tolerate her antibiotics. I suspect she may have pyelonephritis. Patient's influenza and COVID screening was negative. Patient will be admitted stable condition. Case discussed with hospitalist. I was asked obtain a CT scan of the abdomen pelvis which was ordered and the results of which will be pending. Lab Data Attestation: I reviewed the patient's lab results. Labs: Laboratory Results - last 24 hr 06/26/22 06/26/22 06/26/22 20:30 20:30 20:30 WBC 14.8 H RBC 4.48 Hgb 13.0 Hct 38.2 MCV 85.3 MCH 29.0 MCHC 34.0 RDW Std Deviation 36.7 RDW Coeff of David 11.9 Plt Count 288 MPV 9.9 Immature Gran % (Auto) 0.500 Neut % (Auto) 89.6 H Lymph % (Auto) 4.4 L Nash % (Auto) 5.4 Eos % (Auto) 0.0 Baso % (Auto) 0.1 Absolute Neuts (auto) 13.2 H Absolute Lymphs (auto) 0.65 L Nucleated RBC % 0 Sodium 135 L Potassium 3.7 Chloride 103 Carbon Dioxide 22.0 Anion Gap 10 BUN 11 Creatinine 1.04 H Estim Creat Clear Calc 60.28 Est GFR (MDRD) Af Amer 78 Est GFR (MDRD) Non-Af 64 BUN/Creatinine Ratio 10.6 Glucose 133 H Calcium 9.1 Serum , Qual NEGATIVE Urine Color Urine Clarity Urine pH Ur Specific [place] Urine Protein Urine Glucose (UA) Urine Ketones Urine Occult Blood Urine Nitrite Urine Bilirubin Urine Urobilinogen Ur Leukocyte Esterase Urine RBC Urine WBC Ur Squamous Epith Cells Urine Bacteria Urine Mucus 06/26/22 20:55 WBC RBC Hgb Hct MCV MCH MCHC RDW Std Deviation RDW Coeff of David Plt Count MPV Immature Gran % (Auto) Neut % (Auto) Lymph % (Auto) Nash % (Auto) Eos % (Auto) Baso % (Auto) Absolute Neuts (auto) Absolute Lymphs (auto) Nucleated RBC % Sodium Potassium Chloride Carbon Dioxide Anion Gap BUN Creatinine Estim Creat Clear Calc Est GFR (MDRD) Af Amer Est GFR (MDRD) Non-Af BUN/Creatinine Ratio Glucose Calcium Serum , Qual Urine Color Yellow Urine Clarity Sl. Cloudy Urine pH 7.0 Ur Specific [place] 1.010 Urine Protein 30 H Urine Glucose (UA) Normal Urine Ketones 5 H Urine Occult Blood 150 H Urine Nitrite Negative Urine Bilirubin Negative Urine Urobilinogen Normal Ur Leukocyte Esterase 500 H Urine RBC 5-10 SEEN Urine WBC 50-100 SEEN Ur Squamous Epith Cells 0-5 SEEN Urine Bacteria 2+ Urine Mucus 0 SEEN Discharge Plan Dx/Rx/DC Orders Clinical Impression: Pyelonephritis, Leukocytosis, Intractable nausea and vomiting Disposition Disposition: Acute Care Hospital [facility]
[2022-06-26] MEDS: 0.9% Normal Saline 1,000 ML 1000 ML IV (20:34)
[2022-06-26] MEDS: Ondansetron 4 MG/2 ML Vial IV ×2 (20:34→22:41)
[2022-06-26 20:51] LABS: Absolute Lymphocyte Count 0.65 X10^3/uL (0.83-4.51); Absolute Neutrophil Count 13.2 X10^3/uL (2.0-7.7); Basophil# 0.02 X10^3/uL; Basophil% 0.1 % (0-1); Hematocrit 38.2 % (37-47); Lymphocyte # 0.65 X10^3/ul (0.83-4.51); Lymphocyte % 4.4 % (19-41); Mean Corpuscular Volume 85.3 fL (81-99); Mean Platelet Vol. 9.9 fl (6.2-12.0); Monocyte# 0.79 X10^3/uL; Monocyte% 5.4 % (0-10); NRBC Flagged by Analyzer 0 % (0-5); Neutrophil # 13.22 X10^3/uL (2.7-7.7); Neutrophil % 89.6 % (47-70); Platelet Count 288 K/mm3 (150-450); RBC Distribution Width CV 11.9 % (11.6-14.6); RBC Distribution Width SD 36.7 fl (35.1-43.9); Red Blood Count 4.48 M/mm3 (4.2-5.4); White Blood Count 14.8 K/mm3 (4.4-11.0)
[2022-06-26 20:57] LABS: Internal QC Validated? YES +Cl - CLEAR BKGD; Pregnancy, Serum, hCG Quali. NEGATIVE Negative
[2022-06-26 21:04] LABS: Mucous, Urine 0 SEEN /hpf (<or=2+)
[2022-06-26 21:10] LABS: Color, Urine Yellow (Yellow); Glucose, Dipstick Normal (Normal); Ketone-Dipstick 5 mg/dl (Negative); Leukocyte Esterase-Dipstick 500 /ul (Negative); Nitrite-Dipstick Negative (Negative); Occult Blood-Urine 150 /ul (Negative); Protein-Dipstick 30 mg/dl (Negative); Urine Bilirubin Dipstick Negative (Negative); Urine Clarity Sl. Cloudy (Clear); Urine Urobilinogen Normal (Normal)
[2022-06-26 21:26] LABS: Bacteria 2+ /hpf (None Seen); Red Blood Cells-Urine 5-10 SEEN /hpf (0-5); Squamous Epithelial Cells - UA 0-5 SEEN /hpf (5-10); White Blood Cells 50-100 SEEN /hpf (0-5)
[2022-06-26 21:57] LABS: Anion Gap 10 (5-15); BUN 11 mg/dL (7-18); BUN/Creat Ratio 10.6 RATIO (10-20); Calcium,Total 9.1 mg/dL (8.5-10.1); Chloride 103 mmol/L (98-107); Creatinine, Serum 1.04 mg/dL (0.55-1.02); EST Glomerular Filtration Rate 64 mL/min (>60); Est Glom Filt Rate - Afr Amer 78 mL/min (>60); Estimated Creatinine Clearance 60.28 ml/min; Glucose 133 mg/dL (74-106); Potassium 3.7 mmol/L (3.5-5.1); Sodium Level 135 mmol/L (136-145)
[2022-06-26] MEDS: Ciprofloxacin 400 MG/200 ML BAG 200 MG IV (22:32)
--- NOTE | 2022-06-26 22:47 | CT_ITS ---
INDICATION: left flank pain EXAMINATION: CT ABDOMEN AND PELVIS WITHOUT CONTRAST TECHNIQUE: Helically acquired images were obtained of the abdomen and pelvis without IV contrast. 2-D reconstructions reviewed. A radiation dose optimization technique was used for this scan. IV Contrast dosage and agent: None. Oral contrast: None. COMPARISON: None. FINDINGS: LOWER CHEST: No acute findings within the imaged lung bases. Heart size within normal limits. Small hiatal hernia. LIVER: Homogeneous. No discrete mass. GALLBLADDER AND BILIARY TREE: No calcified gallstones identified. No gallbladder wall edema demonstrated. No significant biliary ductal dilation. PANCREAS: No discrete mass or peripancreatic edema. SPLEEN: Normal size without discrete mass. ADRENAL GLANDS: Unremarkable. KIDNEYS AND URETERS: Moderate left renal cortical scarring with couple of small renal calyceal stones measuring less than 4 mm. No ureteral stones identified. Small calcified pelvic phlebolith on the left. Mild left perinephric fat stranding with no significant hydronephrosis. Unremarkable right kidney. PERITONEUM: No peritoneal free air or significant free fluid. No other fluid collection. RETROPERITONEUM: No retroperitoneal mass or pathologic fluid collection. BOWEL: No evidence of acute appendicitis. No abnormal stomach or bowel distension. No focal inflammatory change. LYMPH NODES: No enlarged mesenteric or retroperitoneal lymph nodes. VESSELS: No acute findings. No abdominal aortic aneurysm. URINARY BLADDER: Unremarkable as visualized. REPRODUCTIVE ORGANS: Tampon in place. No pelvic mass or large adnexal cyst. ABDOMINAL WALL: No acute findings or significant hernia defect. BONES: Intact with no suspicious osseous lesion. CT/Abdomen/Pelvis without Cont IMPRESSION: Left nephrolithiasis and renal cortical scarring. Mild left perinephric fat stranding but no significant hydronephrosis and no ureteral stone identified. Possible recently passed left ureteral stone and/or left pyelonephritis, correlate clinically. Electronically Signed: Portillo Oliver MD at 23:51 EDT ,
[2022-06-26 22:49] VITALS: BP 113/82; PULSE 94; RESP 18; TEMP 36.8
--- NOTE | 2022-06-26 22:53 | HP.PCM_ITS ---
Documented by User: RADHIKA Flores 06/26/22 23:08 HPI - General General Date of Admission: 06/26/22 Date of Service: 06/26/22 Chief Complaint: Dysuria, general illness HPI Narrative ALVARO DAS, is a 32 F who presents following a 1 week illness. Patient states that it initially started out with a sore throat and cough which has now resolved and a few days ago she began having dysuria and fevers. Patient presented to urgent care who referred her to the ER for further work-up. Patient reports that her only medical history is intractable migraines for which she takes Topamax. 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 History of herpes genitalis History of pre-eclampsia in prior , currently Insomnia Intractable chronic migraine without aura Pyloric stenosis VSD (ventricular septal defect) Home Medications prenat.vits,valeri,[id number]-suog-ukrez 1 tab PO DAILY 02/22/20 [History Last Taken 08/16/20 09:30] topiramate 50 mg tablet (Topamax) 50 mg PO BID Check with primary doctor 02/22/20 [History Last Taken 08/16/20 09:30] acyclovir 400 mg tablet 400 mg PO PRN PRN Rash 08/31/20 [History Last Taken Unknown] ibuprofen 600 mg tablet 600 mg PO Q6H PRN PRN Pain Score 1-3 09/01/20 [Rx Last Taken Unknown] cholecalciferol (vitamin D3) 125 mcg (5,000 unit) capsule 125 mcg PO DAILY 03/28/21 [History Last Taken Unknown] Allergy/AdvReac Type Severity Reaction Status Date / Time cephalexin Allergy blisters Verified 06/26/22 20:10 latex Allergy Rash Verified 06/26/22 20:10 sertraline [From Zoloft] Allergy suicidal Verified 06/26/22 20:10 pediatric cocktail Allergy stopped Uncoded 06/26/22 20:10 her heart Family History Father MTHFR mutation Heart disease Grandmother CAD (coronary artery disease) maternal Grandfather CAD (coronary artery disease) paternal Uncle Heart disease Antiphospholipid antibody syndrome Uncle Heart disease Surgical History History of wisdom tooth extraction Social History Smoking Status: Never smoker alcohol intake: never substance use type: does not use caffeine: Yes Type: carbonated beverages and tea Number of servings: 6 ROS Constitutional Constitutional: Reports chills, fever(s) and malaise; Denies anorexia or weakness Cardiovascular Cardiovascular: Denies chest pain, edema, palpitations or syncope Respiratory/Chest Respiratory/Chest: Denies cough, shortness of breath at rest, shortness of breath with exertion or wheezing Gastrointestinal Gastrointestinal: Reports nausea and vomiting; Denies abdominal pain, constipation or diarrhea Genitourinary Genitourinary: Reports dysuria, flank pain and low back pain Musculoskeletal Musculoskeletal: Denies back pain, extremity pain, joint pain, joint stiffness or joint swelling Integumentary Integumentary: Denies dry skin Neurologic Neurologic: Denies abnormal gait, abnormal speech, confusion or dizziness Psychiatric Psychiatric: Denies anxiety or depression Endocrine Endocrinology: Denies change in body appearance Hematologic/Lymphatic Hematologic/Lymphatic: Denies anemia Vital Signs Vital Signs Vital Signs: 06/26/22 20:08 Temperature 97.9 F Temperature Source Temporal Pulse Rate 133 H Respiratory Rate 18 Blood Pressure 109/75 Blood Pressure Mean 86 Pulse Ox 97 Oxygen Delivery Method Room Air Weight Weight: 150 lb Body Mass Index (BMI) 27.4 Physical Exam Const alert, oriented x3 and no apparent distress General Appearance: cooperative HEENT normocephalic, head/scalp atraumatic and moist oral mucous membranes Eyes conjunctivae normal and no scleral icterus Neck no lymphadenopathy and supple General: trachea midline Resp normal respiratory effort, normal air movement and clear to auscultation bilaterally Cardio regular rate, regular rhythm, S1 normal heart sound, S2 normal heart sound and peripheral pulses 2+ throughout Rate: tachycardic GI normal to inspection, nondistended, normoactive bowel sounds, soft to palpation and non-tender GI Narrative: Low back pain with palpation Extremity normal capillary refill and no clubbing, cyanosis or edema Skin General Skin Exam: no breakdown Lesions: no lesions Rashes: no rashes Neuro no focal motor deficits and no sensory deficits noted Speech: speech normal Psych thought process normal, cooperative and affect normal Appearance: appropriate Results Lab / Micro Data Result Diagrams: 06/26/22 20:30 06/26/22 20:30 Labs: Laboratory Results - last 24 hr 06/26/22 20:30: WBC 14.8 H, RBC 4.48, Hgb 13.0, Hct 38.2, MCV 85.3, MCH 29.0, MCHC 34.0, RDW Std Deviation 36.7, RDW Coeff of [place] 11.9, Plt Count 288, MPV 9.9, Immature Gran % (Auto) 0.500, Neut % (Auto) 89.6 H, Lymph % (Auto) 4.4 L, [place] % (Auto) 5.4, Eos % (Auto) 0.0, Baso % (Auto) 0.1, Absolute Neuts (auto) 13.2 H, Absolute Lymphs (auto) 0.65 L, Nucleated RBC % 0 06/26/22 20:30: Sodium 135 L, Potassium 3.7, Chloride 103, Carbon Dioxide 22.0, Anion Gap 10, BUN 11, Creatinine 1.04 H, Estim Creat Clear Calc 60.28, Est GFR (MDRD) Af Amer 78, Est GFR (MDRD) Non-Af 64, BUN/Creatinine Ratio 10.6, Glucose 133 H, Calcium 9.1 06/26/22 20:30: Serum , Qual NEGATIVE 06/26/22 20:55: Urine Color Yellow, Urine Clarity Sl. Cloudy, Urine pH 7.0, Ur Specific [place] 1.010, Urine Protein 30 H, Urine Glucose (UA) Normal, Urine Ketones 5 H, Urine Occult Blood 150 H, Urine Nitrite Negative, Urine Bilirubin Negative, Urine Urobilinogen Normal, Ur Leukocyte Esterase 500 H, Urine RBC 5-10 SEEN, Urine WBC 50-100 SEEN, Ur Squamous Epith Cells 0-5 SEEN, Urine Bacteria 2+, Urine Mucus 0 SEEN Micro: Microbiology 06/26/22 20:30 Nasal Secretion SARS-CoV-2 & FLU Antigen (Rapid) - Final Assessment & Plan Assessment/Plan (1) Pyelonephritis: PLAN: Plan 1. UTI with possible pyelonephritis [facility] -Patient placed on ciprofloxacin in the ER due to allergy to cephalexin, will continue -Normal saline 100 mL/h -Intake and output -CBC and BMP in a.m. -Urine culture pending -CT abdomen and pelvis without contrast pending -As needed Zofran as patient continues to have nausea and vomiting -Mildly elevated creatinine 1.04, baseline 0.9 -Urinalysis positive leukocytes, 30 protein, 5 ketones, 150 occult blood, positive white blood cells, 2+ bacteria 2. Intractable migraines -Continue Topamax DVT prophylaxis-not indicated, observation status This patient was seen by RADHIKA Flores under the supervision of Dr. Pacheco. 28 minutes spent in clinical coordination of patient's plan of care.2 Documented by User: Dr. 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 History of herpes genitalis History of pre-eclampsia in prior , currently Insomnia Intractable chronic migraine without aura Pyloric stenosis VSD (ventricular septal defect) Home Medications prenat.vits,valeri,[id number] 1 tab PO DAILY 02/22/20 [History Last Taken 08/16/20 09:30] topiramate 50 mg tablet (Topamax) 50 mg PO BID Check with primary doctor 02/22/20 [History Last Taken 08/16/20 09:30] acyclovir 400 mg tablet 400 mg PO PRN PRN Rash 08/31/20 [History Last Taken Unknown] ibuprofen 600 mg tablet 600 mg PO Q6H PRN PRN Pain Score 1-3 09/01/20 [Rx Last Taken Unknown] cholecalciferol (vitamin D3) 125 mcg (5,000 unit) capsule 125 mcg PO DAILY 03/28/21 [History Last Taken Unknown] Allergy/AdvReac Type Severity Reaction Status Date / Time cephalexin Allergy blisters Verified 06/26/22 20:10 latex Allergy Rash Verified 06/26/22 20:10 sertraline [From Zoloft] Allergy suicidal Verified 06/26/22 20:10 pediatric cocktail Allergy stopped Uncoded 06/26/22 20:10 her heart Family History Father MTHFR mutation Heart disease Grandmother CAD (coronary artery disease) maternal Grandfather CAD (coronary artery disease) paternal Uncle Heart disease Antiphospholipid antibody syndrome Uncle Heart disease Surgical History History of wisdom tooth extraction Social History Smoking Status: Never smoker alcohol intake: never substance use type: does not use caffeine: Yes Type: carbonated beverages and tea Number of servings: 6 Results Lab / Micro Data Result Diagrams: 06/26/22 20:30 06/26/22 20:30 Assessment & Plan Assessment/Plan (1) Pyelonephritis: Charges/Coding Addendum Addendum: Patient was seen and examined independently. I agree with assessment and plan by Tiana Yanez NP-C Patient with 32-year-old female with a significant history of anxiety and depression; VSD; and pyloric stenosis who presents to the emergency department with nausea and vomiting that started day before presentation. Associated with his symptoms is left flank pain. She also complains of pain in her bilateral hip. Further, patient complains of dysuria. Prior to presentation he had a temperature of 102 Fahrenheit. Also patient complains of a cough that has been going on for about 2 weeks. Of note patient stated she could not go home since she is too nauseous and wants to the hospital. Physical exam: General: Well-nourished, well-developed. Head: Normocephalic, atraumatic, no tenderness Eyes: Vision is grossly intact. EOMI ENT, no trauma, moist mucous membranes, no rhinorrhea Neck: Nontender, full range of motion, no spinal tenderness, deformities, step- off CVS: Regular rate and rhythm. S1-S2 present. No murmur, gallop or rub. Respiratory : clear to auscultation bilaterally, chest wall nontender, no wheezing Abdomen: Soft, nontender, nondistended, normal bowel sounds, no masses : Deferred Back: Nontender, no CVA tenderness, no midline spinal tenderness, deformities, step-offs Extremities: Nontender full range of motion, no trauma Skin: Normal color, no trauma, abrasions Neuro: Alert, oriented, cranial nerves II through XII grossly intact. Psychiatry: Normal mood. Normal affect. Not depressed. Not anxious. Acute UTI with possible pyonephritis. White count of 14.8; with neutrophilia and lymphopenia. Patient meets SIRS criteria of tachycardia with heart rate more than 90; and leukocytosis with whit e count of more than 12. However there is no organ dysfunction. qSOFA score is 0. Sepsis ruled out. Urinalysis is abnormal with urine leukocyte esterase of 500; nitrite negative; urine WBC 50-100; urine bacteria 2+; squamous epithelial cells 0-5. CT of abdomen and pelvis ordered emergency department, follow. Rapid COVID antigen and flu negative. Urine culture ordered emergency department follow-up. Received ciprofloxacin IV at emergency department and continued. Supportive treatment with IV fluids. Clear liquid diet. As needed Zofran IV ordered. Trend CBC and BMP DVT prophylaxis: Low risk. Encourage ambulate. Visit Charges OBSV E&M: 14595 Initial observation care L3
[2022-06-26 23:36] VITALS: BMI 27.5
[2022-06-26 23:51] VITALS: BP 116/77; PULSE 121; RESP 32; TEMP 38.1; O2SAT 99
[2022-06-26 23:55] VITALS: BP 116/77; PULSE 121; RESP 32; TEMP 38.1; O2SAT 99
[2022-06-27] VITALS (8 sets, daily range): BP systolic 96–111; BP diastolic 65–78; PULSE 88–107; RESP 18–28; TEMP 36.6–38.4; O2SAT 97–100
[2022-06-27] MEDS: 0.9% Normal Saline 1,000 ML 100 ML IV ×3 (00:44→21:47)
[2022-06-27] MEDS: Acetaminophen 325 MG Tablet 650 MG PO ×4 (00:56→23:32)
[2022-06-27 03:12] LABS: Absolute Lymphocyte Count 1.14 X10^3/uL (0.83-4.51); Absolute Neutrophil Count 10.6 X10^3/uL (2.0-7.7); Basophil# 0.03 X10^3/uL; Basophil% 0.2 % (0-1); Hematocrit 34.6 % (37-47); Lymphocyte # 1.14 X10^3/ul (0.83-4.51); Lymphocyte % 9.1 % (19-41); Mean Corp Hgb Conc 34.7 g/dL (32-36); Mean Corpuscular Hgb 29.1 pg (27.0-32.0); Mean Corpuscular Volume 83.8 fL (81-99); Mean Platelet Vol. 9.7 fl (6.2-12.0); Monocyte# 0.75 X10^3/uL; NRBC Flagged by Analyzer 0 % (0-5); Neutrophil # 10.57 X10^3/uL (2.7-7.7); Neutrophil % 84.4 % (47-70); Platelet Count 265 K/mm3 (150-450); RBC Distribution Width CV 11.9 % (11.6-14.6); Red Blood Count 4.13 M/mm3 (4.2-5.4); White Blood Count 12.5 K/mm3 (4.4-11.0)
[2022-06-27 03:34] LABS: Anion Gap 9 (5-15); BUN 9 mg/dL (7-18); BUN/Creat Ratio 9.6 RATIO (10-20); Calcium,Total 8.2 mg/dL (8.5-10.1); Chloride 108 mmol/L (98-107); Creatinine, Serum 0.93 mg/dL (0.55-1.02); EST Glomerular Filtration Rate 73 mL/min (>60); Est Glom Filt Rate - Afr Amer 88 mL/min (>60); Estimated Creatinine Clearance 64.32 ml/min; Glucose 125 mg/dL (74-106); Sodium Level 137 mmol/L (136-145)
[2022-06-27 03:38] LABS: Lactic Acid 0.5 mmol/L (0.4-1.9)
[2022-06-27] MEDS: Topiramate 50 MG Tablet PO ×2 (08:16→22:18)
[2022-06-27] MEDS: Ciprofloxacin 400 MG/200 ML BAG 200 MG IV ×2 (10:21→22:18)
[2022-06-27] MEDS: 0.9% Saline Lock 10 ML Syringe IV ×2 (12:24→23:25)
[2022-06-27] MEDS: Potassium Chloride Oral Tablet 20 MEQ 40 MEQ PO (12:24)
--- NOTE | 2022-06-27 13:50 | CASEMGMT ---
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 RN DURAN introduced self and role at [facility]. Pt voices understanding and consents to assessment at this time. Pt resting in bed in no distress at this time. @ bedside. Pt is A/O at this time and answers all questions appropriately. Care providers, pharmacy, and demographics verified/updated at this time. PCP: Dr Sen Specialists: Dr Navarrete-cardiology Preferred Pharmacy: [facility] Retail Insurance: [employer] Prescription Benefit: Yes Living Will/HPOA: Pt does not currently have LW/HCPOA and declines info at this time. Pt made aware that she can contact SW as an out-pt and make appt in the future if she decides she would like to talk with someone about this or would like to utilize [facility] social work for advanced directive completion. Pt made aware Mds Coordinator Rac card with information and contact number is in binder in room to take home. Pt expresses understanding. LNOK: Moi Living Arrangements: Lives w/ and 4 children in mostly one-story home. Independent. Transportation: Pt states drives self and states no transportation concerns at this time. also drives DME: Denies using any DME and denies needs. HHC/SNF: No hx of either. No needs identified. Pt wishes to return home and states has no concerns with going home at time of discharge. CM to follow for any discharge planning/needs. Pt and voice no concerns/needs at this time. Advised them to ask for CM if any questions/concerns/needs arise. They voice understanding. PLAN: Home Vern BAÑUELOS RN, CM
--- NOTE | 2022-06-27 16:56 | PN.HOSP_ITS ---
Subjective Subjective Patient was seen and examined today, she is running a slight temperature, her potassium was low today and she was given potassium supplementation. Urine and blood culture results are pending at this time. Objective Data Objective Data Vital Signs: Vital Signs Temp Pulse Resp BP Pulse Ox O2 Del Method 99.6 F H 98 18 106/78 100 Room Air 06/27/22 15:20 06/27/22 15:20 06/27/22 15:20 06/27/22 15:20 06/27/22 15:20 06/27/22 15:20 Oxygen Delivery Method Room Air Weight: 67.8 kg Body Mass Index (BMI) 27.5 Intake & Output: Intake and Output for Last 24 Hours 06/25/22 06/26/22 06/27/22 23:59 23:59 23:59 Intake Total 1000 / 1150 2411.67 / 2411.67 Output Total 600 / 600 Balance 1000 / 1150 1811.67 / 1811.67 Lab / Micro Data Result Diagrams: 06/27/22 03:00 06/27/22 03:00 Labs: Laboratory Results - last 24 hr 06/26/22 20:30: WBC 14.8 H, RBC 4.48, Hgb 13.0, Hct 38.2, MCV 85.3, MCH 29.0, MCHC 34.0, RDW Std Deviation 36.7, RDW Coeff of [place] 11.9, Plt Count 288, MPV 9.9, Immature Gran % (Auto) 0.500, Neut % (Auto) 89.6 H, Lymph % (Auto) 4.4 L, [place] % (Auto) 5.4, Eos % (Auto) 0.0, Baso % (Auto) 0.1, Absolute Neuts (auto) 13.2 H, Absolute Lymphs (auto) 0.65 L, Nucleated RBC % 0 06/26/22 20:30: Sodium 135 L, Potassium 3.7, Chloride 103, Carbon Dioxide 22.0, Anion Gap 10, BUN 11, Creatinine 1.04 H, Estim Creat Clear Calc 60.28, Est GFR (MDRD) Af Amer 78, Est GFR (MDRD) Non-Af 64, BUN/Creatinine Ratio 10.6, Glucose 133 H, Calcium 9.1 06/26/22 20:30: Serum , Qual NEGATIVE 06/26/22 20:55: Urine Color Yellow, Urine Clarity Sl. Cloudy, Urine pH 7.0, Ur Specific [place] 1.010, Urine Protein 30 H, Urine Glucose (UA) Normal, Urine Ketones 5 H, Urine Occult Blood 150 H, Urine Nitrite Negative, Urine Bilirubin Negative, Urine Urobilinogen Normal, Ur Leukocyte Esterase 500 H, Urine RBC 5-10 SEEN, Urine WBC 50-100 SEEN, Ur Squamous Epith Cells 0-5 SEEN, Urine Bacteria 2+, Urine Mucus 0 SEEN 06/27/22 03:00: WBC 12.5 H, RBC 4.13 L, Hgb 12.0, Hct 34.6 L, MCV 83.8, MCH 29.1, MCHC 34.7, RDW Std Deviation 36.0, RDW Coeff of [place] 11.9, Plt Count 265, MPV 9.7, Immature Gran % (Auto) 0.300, Neut % (Auto) 84.4 H, Lymph % (Auto) 9.1 L, [place] % (Auto) 6.0, Eos % (Auto) 0.0, Baso % (Auto) 0.2, Absolute Neuts (auto) 10.6 H, Absolute Lymphs (auto) 1.14, Nucleated RBC % 0 06/27/22 03:00: Sodium 137, Potassium 3.0 L, Chloride 108 H, Carbon Dioxide 20.0 L, Anion Gap 9, BUN 9, Creatinine 0.93, Estim Creat Clear Calc 64.32, Est GFR (MDRD) Af Amer 88, Est GFR (MDRD) Non-Af 73, BUN/Creatinine Ratio 9.6 L, Glucose 125 H, Calcium 8.2 L 06/27/22 03:00: Lactic Acid 0.5 Micro: Microbiology 06/26/22 20:30 Nasal Secretion SARS-CoV-2 & FLU Antigen (Rapid) - Final Radiography Diagnostic Testing: Radiology Impression Abdomen/Pelvis CT 06/26/22 22:47 IMPRESSION: Left nephrolithiasis and renal cortical scarring. Mild left perinephric fat stranding but no significant hydronephrosis and no ureteral stone identified. Possible recently passed left ureteral stone and/or left pyelonephritis, correlate clinically. Electronically Signed: Portillo Oliver MD at 23:51 EDT , Physical Exam Const alert, oriented x3 and no apparent distress General Appearance: cooperative, well kempt and well developed Orientation / Consciousness: awake, oriented to person, oriented to place and oriented to time HEENT normocephalic, head/scalp atraumatic and moist oral mucous membranes Eyes PERRL, EOMs intact bilaterally and conjunctivae normal Neck supple, no JVD, thyroid normal and no carotid bruits General: trachea midline Resp normal respiratory effort, no retractions, no use of accessory muscles and clear to auscultation bilaterally Auscultation: Negative for rales, rhonchi or wheezes Cardio regular rate, regular rhythm, S1 normal heart sound, S2 normal heart sound, no murmurs, no rub and no gallops GI normal to inspection, nondistended, normoactive bowel sounds, soft to palpation, non-tender and non-distended Extremity no clubbing, cyanosis or edema Skin no rashes or lesions noted General Skin Exam: no breakdown Neuro oriented x3, CN's II-XII intact bilaterally, moves all extremities, no focal motor deficits and no sensory deficits noted Sensorium / Orientation: awake and alert Speech: speech normal Psych affect normal Assessment & Plan Assessment/Plan (1) Pyelonephritis: PLAN: Plan 1. Acute pyelonephritis-continue IV ciprofloxacin, CBC will be repeated tomorrow #2 hypokalemia-potassium supplementation was given, repeat BMP tomorrow #3 intractable nausea and vomiting-resolved at this time, continue IV fluids Charges/Coding Visit Charges Inpatient E&M: 91718 Init Hosp L3
[2022-06-27] MEDS: Ondansetron 4 MG/2 ML Vial IV (23:25)
[2022-06-28 02:00] VITALS: BP 100/69; PULSE 80; RESP 14; TEMP 36.3; O2SAT 100
[2022-06-28 06:31] LABS: Anion Gap 8 (5-15); BUN 6 mg/dL (7-18); BUN/Creat Ratio 7.4 RATIO (10-20); Calcium,Total 8.2 mg/dL (8.5-10.1); Chloride 113 mmol/L (98-107); Creatinine, Serum 0.81 mg/dL (0.55-1.02); EST Glomerular Filtration Rate 86 mL/min (>60); Est Glom Filt Rate - Afr Amer 104 mL/min (>60); Estimated Creatinine Clearance 73.85 ml/min; Glucose 114 mg/dL (74-106); Potassium 3.6 mmol/L (3.5-5.1); Sodium Level 141 mmol/L (136-145)
[2022-06-28 07:43] VITALS: BP 112/74; PULSE 86; RESP 16; TEMP 36.7; O2SAT 98
[2022-06-28 07:44] VITALS: BP 112/74; PULSE 86; RESP 16; TEMP 36.7; O2SAT 98
[2022-06-28] MEDS: 0.9% Normal Saline 1,000 ML 100 ML IV (07:57)
[2022-06-28 08:20] LABS: Absolute Lymphocyte Count 1.86 X10^3/uL (0.83-4.51); Absolute Neutrophil Count 3.9 X10^3/uL (2.0-7.7); Basophil# 0.03 X10^3/uL; Basophil% 0.5 % (0-1); Eosinophil# 0.09 X10^3/uL; Eosinophils% 1.4 % (0-5); Hematocrit 34.2 % (37-47); Hemoglobin 11.8 g/dL (12.0-15.0); Lymphocyte # 1.86 X10^3/ul (0.83-4.51); Lymphocyte % 28.3 % (19-41); Mean Corp Hgb Conc 34.5 g/dL (32-36); Mean Corpuscular Hgb 29.6 pg (27.0-32.0); Mean Corpuscular Volume 85.7 fL (81-99); Mean Platelet Vol. 9.8 fl (6.2-12.0); Monocyte# 0.65 X10^3/uL; Monocyte% 9.9 % (0-10); NRBC Flagged by Analyzer 0 % (0-5); Neutrophil # 3.92 X10^3/uL (2.7-7.7); Neutrophil % 59.6 % (47-70); Platelet Count 238 K/mm3 (150-450); RBC Distribution Width SD 37.7 fl (35.1-43.9); Red Blood Count 3.99 M/mm3 (4.2-5.4); White Blood Count 6.6 K/mm3 (4.4-11.0)
[2022-06-28] MEDS: Topiramate 50 MG Tablet PO (09:30)
[2022-06-28] MEDS: guaiFENesin Dm 10 ML UDC PO (09:31)
--- NOTE | 2022-06-28 10:30 | DCINST_ITS ---
Discharge Instructions Diet Discharge Diet: No restrictions Activity Discharge Activity: Return to Normal Activity Weight Bearing Status: Full weight bearing Follow Up Care Test Results: Test results from this visit will be discussed in further detail at your follow- up appointment, if applicable. Discharge Plan Admission Admit Date/Time: 06/26/22 22:40 Primary Reason for Your Visit: pyelonephritis Attending Provider: Portillo Jordan Primary Care Provider: Manuel Sen Consulting Providers: Chris Pacheco Discharge Orders/Prescriptions Prescriptions: New levofloxacin 750 mg tablet 750 mg PO DAILY Qty: 7 0RF Rx Instructions: start on 06/28/22 ondansetron 4 mg tablet,disintegrating 4 mg PO Q6H PRN (Reason: nausea and vomiting) Qty: 20 0RF Continued prenat.vits,valeri,[id number] Tablet 1 tab PO DAILY topiramate [Topamax] 50 mg tablet 50 mg PO BID cholecalciferol (vitamin D3) 125 mcg (5,000 unit) capsule 125 mcg PO DAILY acyclovir 400 MG tablet 400 mg PO PRN PRN (Reason: Rash) ibuprofen 600 MG tablet 600 mg PO Q6H PRN PRN (Reason: Pain Score 1-3) 0RF Referrals / Follow Up: Manuel Sen MD [Primary Care Provider] - Disposition Disposition (needs filled in before D/C Order can be placed): Home, Self Care
--- NOTE | 2022-06-28 10:38 | DS.PCM_ITS ---
Providers Date of Admission: 06/26/22 Date of Discharge: 06/28/22 Primary Care Physician: Dr. Manuel Sen MD Reason For Visit: UTI,NAUSEA & VOMITING Diagnosis Discharge Diagnosis (1) Pyelonephritis: Status: Acute Code(s): N12 - Tubulo-interstitial nephritis, not specified as acute or chronic Plan 1. Acute pyelonephritis secondary to Klebsiella pneumoniae #2 hypokalemia-potassium supplementation was given, repeat BMP tomorrow #3 intractable nausea and vomiting-resolved at this time, continue IV fluids Medications at Discharge Home Medications prenat.vits,valeri,[id number] 1 tab PO DAILY 02/22/20 topiramate 50 mg tablet (Topamax) 50 mg PO BID Check with primary doctor 02/22/20 acyclovir 400 mg tablet 400 mg PO PRN PRN Rash 08/31/20 ibuprofen 600 mg tablet 600 mg PO Q6H PRN PRN Pain Score 1-3 09/01/20 cholecalciferol (vitamin D3) 125 mcg (5,000 unit) capsule 125 mcg PO DAILY 03/28/21 levofloxacin 750 mg tablet 750 mg PO DAILY #7 tabs 06/28/22 ondansetron 4 mg disintegrating tablet 4 mg PO Q6H PRN nausea and vomiting #20 tabs 06/28/22 Hospital Course Operations None Procedures None Summary of Care Provided Minutes Spent on Discharge: 32 Hospital Course: This 32-year-old white female seen in the emergency room at [facility] with complaints of persistent nausea and vomiting as well as flank pain. Work-up in the emergency room revealed the patient have a pyelonephritis, patient was given IV fluids and IV antibiotics and she was admitted to [place] [address]. Patient improved over the next several days, urine culture grew out Klebsiella pneumoniae. On 06/28/2022, patient was seen and examined: On examination she appeared in good health and spirits, she does not appear to be in any distress. Vital signs as documented. Skin warm and dry and without overt rashes. Neck without JVD, thyroid appears normal, trachea is midline, neck is supple. Lungs clear, normal air movement was noted. Heart exam notable for regular rhythm, normal sounds and absence of murmurs, rubs or gallops. Abdomen unremarkable and without evidence o f organomegaly, masses, or abdominal aortic enlargement, bowel sounds are present in all 4 quadrants, no abdominal tenderness was noted. Extremities nonedematous, no cyanosis was noted, no clubbing was noted. Neuro: Cranial nerves II through XII are grossly intact, no focal motor deficits were noted, sensation to light touch and pinprick is intact, motor exam 5/5 throughout. Psych: Patient is alert and oriented x3, she does not appear anxious or depressed, she does not appear agitated. On 06/28/2022 patient was seen and examined and felt to be stable for discharge home. Weight / BMI Weight Weight: 67.8 kg Body Mass Index (BMI) 27.5 ABG / Lab / Microbiology Data Result Diagrams: 06/28/22 05:45 06/28/22 05:45 Laboratory: Laboratory Results - last 24 hr 06/28/22 05:45: Sodium 141, Potassium 3.6, Chloride 113 H, Carbon Dioxide 20.0 L , Anion Gap 8, BUN 6 L, Creatinine 0.81, Estim Creat Clear Calc 73.85, Est GFR (MDRD) Af Amer 104, Est GFR (MDRD) Non-Af 86, BUN/Creatinine Ratio 7.4 L, Glucose 114 H, Calcium 8.2 L 06/28/22 05:45: WBC 6.6, RBC 3.99 L, Hgb 11.8 L, Hct 34.2 L, MCV 85.7, MCH 29.6, MCHC 34.5, RDW Std Deviation 37.7, RDW Coeff of [place] 12.0, Plt Count 238, MPV 9.8, Immature Gran % (Auto) 0.300, Neut % (Auto) 59.6, Lymph % (Auto) 28.3, [place] % (Auto) 9.9, Eos % (Auto) 1.4, Baso % (Auto) 0.5, Absolute Neuts (auto) 3.9, Absolute Lymphs (auto) 1.86, Nucleated RBC % 0 Microbiology: Microbiology 06/26/22 20:55 Urine, Clean Catch Urine Culture - Preliminary 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 06/26/22 20:30 Nasal Secretion SARS-CoV-2 & FLU Antigen (Rapid) - Final D/C Instructions Discharge Diet: No restrictions Weight Bearing Status: Full weight bearing Meaningful Use Info Meaningful Use Diagnoses (Choose all that apply): None applicable Discharge Plan Admission Admit Date/Time: 06/26/22 22:40 Primary Reason for Your Visit: pyelonephritis Attending Provider: Potrillo Jordan Primary Care Provider: Manuel Sen Consulting Providers: Chris Pacheco Discharge Orders/Prescriptions Prescriptions: New levofloxacin 750 mg tablet 750 mg PO DAILY Qty: 7 0RF Rx Instructions: start on 06/28/22 ondansetron 4 mg tablet,disintegrating 4 mg PO Q6H PRN (Reason: nausea and vomiting) Qty: 20 0RF Continued prenat.vits,valeri,[id number]-ujliu Tablet 1 tab PO DAILY topiramate [Topamax] 50 mg tablet 50 mg PO BID cholecalciferol (vitamin D3) 125 mcg (5,000 unit) capsule 125 mcg PO DAILY acyclovir 400 MG tablet 400 mg PO PRN PRN (Reason: Rash) ibuprofen 600 MG tablet 600 mg PO Q6H PRN PRN (Reason: Pain Score 1-3) 0RF Referrals / Follow Up: Manuel Sen MD [Primary Care Provider] - Disposition Disposition (needs filled in before D/C Order can be placed): Home, Self Care Charges/Coding Visit Charges Inpatient E&M: 55164 Disch Hosp
--- NOTE | 2022-06-28 10:48 | CASEMGMT ---
MARIANELA CM in to pt room, pt sitting up in bed. Pt denies any homegoing needs at this time.
== END 2022-06-28 12:02 | disposition home or self-care (01) | DRG 463 ==
LOC: ED 22:30 → MS3 23:17
PROVIDERS: Nurse Practitioner Family; Admitting Provider Hospitalist; Emergency Provider Emergency Medicine; PCP Family Medicine; Visit Provider Internal Medicine
DX: N12 Tubulo-interstitial nephritis, not specified as acute or chronic (principal); A60.00 Herpesviral infection of urogenital system, unspecified; E87.6 Hypokalemia; G43.719 Chronic migraine without aura, intractable, without status migrainosus; B96.1 Klebsiella pneumoniae [K. pneumoniae] as the cause of diseases classified elsewhere; Z20.822 Contact with and (suspected) exposure to COVID-19; Z79.899 Other long term (current) drug therapy
CPT/HCPCS: 36415; 74176; 80048; 81001; 83605; 84703; 85025; 87040; 87077; 87086; 87088; 87186; 87428; 96361; 96365; 96366; 96375; 96376; 99221; 99285; J7030; J7040; A4216; G0378; J0744; J2405

== ENCOUNTER → 2023-09-05 | Outpatient (CLI) | payer MEDICAID, SELFPAY ==
--- NOTE | 2023-09-05 12:32 | ECHOD_ITS ---
Reason For Study: CONGENITAL HEART DISEASE Procedure This was a 2D Doppler, Color Flow transthoracic echocardiogram. Exam performed in department. Left Ventricle Normal LV size. Small membranous VSD. Left ventricular systolic function is normal. The estimated ejection fraction is 60 %. No regional wall motion abnormalities noted. Right Ventricle Normal RV size. Normal systolic function. Pulmonic Valve Normal pulmonic valve. Great Vessels Normal aortic root. The pulmonary artery is normal size. Normal inferior vena cava. Pericardium/Pleural No pericardial effusion. MMode/2D Measurements & Calculations LVIDd: 4.2 cm IVSd: 0.82 cm LAV(MOD-bp): 49.5 ml LVIDs: 2.9 cm LVPWd: 0.88 cm RVDd: 2.3 cm FS: 30.7 % LAV(MOD-bp) Indexed: 30.3 ml/m2 LAV(MOD-sp2): 47.0 ml LAV(MOD-sp4): 43.2 ml LVAd ap4: 27.4 cm2 SV(MOD-sp4): 40.8 ml SV(sp4-el): 42.7 ml LVLd ap4: 8.1 cm EDV(MOD-sp4): 75.6 ml EDV(sp4-el): 78.1 ml LVAs ap4: 16.1 cm2 LVLs ap4: 6.2 cm ESV(MOD-sp4): 34.8 ml ESV(sp4-el): 35.4 ml EF(MOD-sp4): 54.0 % EF(sp4-el): 54.7 % LA dimension(2D): 3.0 cm LA A4 area: 17.4 cm2 RA A4 area: 10.2 cm2 TAPSE: 2.5 cm Time Measurements MV dec time: 0.17 sec Doppler Measurements & Calculations MV E max jacek: 96.2 cm/sec Lat Peak E' Jacek: 17.1 cm/sec Med Peak E' Jacek: 9.9 cm/sec MV A max jacek: 77.0 cm/sec E/E' lat: 5.6 E/E' med: 9.7 MV E/A: 1.2 MV V2 max: 106.3 cm/sec MV dec slope: 579.8 cm/sec2 Ao V2 max: 134.4 cm/sec MV max P.5 mmHg Ao max P.2 mmHg MV V2 mean: 77.7 cm/sec Ao V2 mean: 97.5 cm/sec MV mean P.6 mmHg Ao mean P.3 mmHg MV V2 VTI: 28.8 cm Ao V2 VTI: 28.9 cm AV (velocity ratio): 0.86 LV V1 max: 127.6 cm/sec PA V2 max: 126.2 cm/sec LV V1 max P.5 mmHg PA V2 mean: 101.8 cm/sec LV V1 mean P.5 mmHg LV V1 mean: 87.1 cm/sec LV V1 VTI: 24.8 cm ECHO/Echo Complete Interpretation Summary Normal LV size. Left ventricular systolic function is normal. The estimated ejection fraction is 60 %. Small membranous VSD Ordering Physician: Elena Soliz Referring Physician: Elena Soliz Performed By: Noreen Emery RCS
== END | disposition home or self-care (01) ==
LOC: CVS 12:31
PROVIDERS: PCP Family Medicine; Referring Provider Physician Assistant Medical; Visit Provider Physician Assistant Medical
DX: Q21.0 Ventricular septal defect (principal)
CPT/HCPCS: 93306

== ENCOUNTER 2023-12-04 20:57 | Emergency (ER) | payer MEDICAID, SELFPAY ==
[2023-12-04 20:59] VITALS: BP 131/90; PULSE 89; RESP 16; TEMP 36.7; O2SAT 99; BMI 27.8
--- NOTE | 2023-12-04 23:27 | EX.ED.DYSGE1 ---
HPI History of Present Illness Chief Complaint: Allergic Reaction Detail of Chief Complaint: Elevated blood pressure. Informant: patient Onset/Context/Timing Onset: Today Context: Gradual Onset Timing: Continuous Current Severity: Mild Maximum Severity: Mild Narrative Narrative: Healthy 33-year-old female with a history of migraine headaches for which she is on medications after getting her off due to her current . Currently she is 12 weeks . She is Ab2. For several of her pregnancies she had -induced hypertension. Recently her [employer] office started on CoQ 10, magnesium and other [id number] medications to try to prevent her migraines. She thinks she is having a reaction of those.. Also states her blood pressures have recently been elevated. Normally she runs 120/80 she has been running around 135/80-90. Prior similar symptoms: Yes Recent Illness/Hospitalization: No PFSH PFSH Medical History Anxiety and depression Chronic pain Contusion of arm, left GBS carrier History of herpes genitalis History of pre-eclampsia in prior , currently Insomnia Intractable chronic migraine without aura Migraines Non-smoker Pyloric stenosis VSD (ventricular septal defect) Home Medications prenat.vits,valeri,[id number]-pwmpd 1 tab PO DAILY 02/22/20 [History Last Taken 08/16/20 09:30] topiramate 50 mg tablet (Topamax) 50 mg PO BID Check with primary doctor 02/22/20 [History Last Taken 08/16/20 09:30] ibuprofen 600 mg tablet 600 mg PO Q6H PRN PRN Pain Score 1-3 09/01/20 [Rx Last Taken Unknown] cholecalciferol (vitamin D3) 125 mcg (5,000 unit) capsule 125 mcg PO DAILY 03/28/21 [History Last Taken Unknown] ondansetron 4 mg disintegrating tablet 4 mg PO Q6H PRN nausea and vomiting #20 tabs 06/28/22 [Rx Last Taken Unknown] Allergy/AdvReac Type Severity Reaction Status Date / Time cephalexin Allergy blisters Verified 12/04/23 21:02 latex Allergy Rash Verified 12/04/23 21:02 sertraline [From Zoloft] Allergy suicidal Verified 12/04/23 21:02 pediatric cocktail Allergy stopped Uncoded 07/31/23 10:20 her heart Family History Father MTHFR mutation Heart disease Grandmother CAD (coronary artery disease) maternal Grandfather CAD (coronary artery disease) paternal Uncle Heart disease Antiphospholipid antibody syndrome Uncle Heart disease Surgical History History of wisdom tooth extraction Social History Smoking Status: Never smoker alcohol intake: never substance use type: does not use caffeine: Yes Type: carbonated beverages and tea Number of servings: 6 ROS ROS ED ROS Narrative Morning sickness with the . Review of Systems ROS Unobtainable: Denies due to encephalopathy Constitutional Constitutional ED: Denies chills or fever(s) Eyes Eyes: Denies blurry vision ENT ENT ED: Denies ear pain Cardiovascular Cardiovascular: Denies chest pain Respiratory/Chest Respiratory/Chest: Denies cough Gastrointestinal Gastrointestinal: Denies abdominal pain Genitourinary Genitourinary ED: Denies dysuria or hematuria Musculoskeletal Musculoskeletal: Denies arthralgias Integumentary Denies abscess or Abrasions Neurologic Neurologic: Reports headache(s) Psychiatric Psychiatric: Denies anxiety or depression Endocrine Endocrinology: Denies cold intolerance Hematologic/Lymphatic Hematologic/Lymphatic: Reports none Allergic/Immunologic Allergic/Immunologic ED: Denies mouth swelling, tongue swelling, urticaria or other EXAM Physical Exam Narrative Exam Narrative: Well-appearing 33-year-old female vital signs stable on current blood pressure 131/90. She does not look septic toxic or in any distress. H EENT exam unremarkable. Mild redness to her cheeks. No hives. No lip or tongue swelling. No trouble breathing or swallowing. Neck nontender. Lungs clear. Heart regular rhythm no murmur rate about 90. Abdomen soft nontender. Gravid uterus. Nontender. Moving all 4 extremities. Nontender no edema. Neurologically she is awake and alert with no focal motor deficits. Const Vital Signs: 12/04/23 20:59 Temperature 98.0 F Temperature Source Temporal Pulse Rate 89 Respiratory Rate 16 Blood Pressure 131/90 H Blood Pressure Mean 103 Pulse Ox 99 Oxygen Delivery Method Room Air Positive well nourished and well developed; Negative for obese, cachectic, contractures or unkempt General Appearance ED: well developed and NAD; Negative for unkempt, cachectic, contractures, cyanotic, diaphoretic or pallor Nutritional Appearance: Negative for cachectic or obese HEENT Reports moist mucous membranes; Denies dry mucous membranes Negative for trauma or tenderness Mouth ED: No dry mucous membranes Mouth: No dry mucous membranes Eyes PERRL and EOMs intact bilaterally General Eye ED: Negative for pale conjunctiva or scleral icterus Neck no lymphadenopathy, supple and no JVD General: Negative for tenderness Lymph Lymphatic: Negative for other Chest Wall inspection of chest normal and palpation of chest normal Chest: Negative for other Resp normal respiratory effort and clear to auscultation bilaterally Effort and Inspection: Negative for retractions Auscultation: Negative for rales, rhonchi or wheezes Cardio regular rate, regular rhythm, S1 normal heart sound, S2 normal heart sound and no murmurs Rhythm: Negative for abnormal rhythm GI normal to inspection, nondistended, normoactive bowel sounds, non-tender, non-distended and no masses GI Narrative: Gravid nontender uterus. Auscultation: normoactive bowel sounds Palpation: soft; Negative for tender, guarding or rebound tenderness present Back/Spine no CVA tenderness General Back: Negative for CVA tenderness Cervical Spine: Negative for cervical spine tenderness Thoracic Spine / Upper Back: Negative for thoracic spinal tenderness Lumbar Spine / Lower Back: Negative for lumbar spinal tenderness Extremity normal to inspection General Extremety ED: Negative for edema or tenderness General Extremity: Negative for edema Neuro oriented x3 and CN's II-XII intact bilaterally Sensorium / Orientation: alert; Negative for orientation impaired, lethargic or stuporous Psych mental status grossly normal Appearance: Negative for unkempt Attitude: No agitated Mood & Affect: Negative for depressed, anxious or tearful Skin no wounds General Skin Exam: Negative for jaundice or pallor Lesions: No lesion noted Rashes: rashes noted Trauma: Negative for abrasion Wounds: Negative for wounds noted MDM MDM MDM Narrative Medical decision making narrative: 33-year-old female currently 12 weeks with elevated blood pressure recheck and to recheck and follow-up. She has a history of -induced hypertension. She and I discussed this is awful early to be developing that. She will follow-up with her [employer] at office. She is also been placed on [id number] medications such as CoQ 10 and magnesium think she may be either having a reaction to it. She is can to stop those medications and follow-up with her [employer] office. Her exam is normal tonight. Discharge Plan Triage Chief Complaint: Allergic Reaction ED Provider: Dorian Dominguez Dx/Rx/DC Orders Clinical Impression: Elevated blood pressure reading, First trimester , History of induced hypertension Prescriptions: No Action prenat.vits,valeri,[id number] Tablet 1 tab PO DAILY topiramate [Topamax] 50 mg tablet 50 mg PO BID cholecalciferol (vitamin D3) 125 mcg (5,000 unit) capsule 125 mcg PO DAILY ibuprofen 600 MG tablet 600 mg PO Q6H PRN PRN (Reason: Pain Score 1-3) 0RF ondansetron 4 mg tablet,disintegrating 4 mg PO Q6H PRN (Reason: nausea and vomiting) Qty: 20 0RF Primary Care Provider: Manuel Sen Referrals: Manuel Sen MD [Primary Care Provider] - As Needed Activity Restrictions/Additional Instructions: Call and follow-up with your [employer] office tomorrow. See if they can move up your next appointment to next week. Stop the new medications a started you on that you may or may not be having a reaction to. Log your blood pressures twice daily and show than the readings the next time you see your [employer]EC[employer]IVE. Disposition Disposition: Home, Self Care
--- OUTSIDE RECORDS SUMMARY | 2023-12-04 23:33 | XMS RPT_ITS | CCD ---
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 anything down, or if you notice potential signs of dehydration such as lightheadedness, or concentrated and/or infrequent urination, call your practitioner. Some women need brief hospital admission for intravenous fluids and anti-nausea medications if their condition becomes severe. This severe form of nausea and vomiting is called Hyperemesis Gravidarum. As with many symptoms of , remind yourself that this, too, shall pass, and you'll have a wonderful baby to show for it! TREATMENT OPTIONS, SHORT VERSION: Frequent small meals Hydrate throughout day Sea-[employer]ands wrist pressure point applicators Vanessa root (powdered, in capsules) 250mg four times a day Vitamin B6 25 mg tablet three times a day Also may be taken with half a tablet of Unisom three times a day (Doxylamine 12.5 mg) If severe (weight loss, dehydration), call us and come in for IV hydration and possible medication in the form of injections. Prescription medications such as Phenergan, Compazine, Reglan Ondansetron (Zofran ) April 29, 2020 This sheet talks about exposure to ondansetron in a and while . This information should not take the place of medical care and advice from your healthcare provider. What is ondansetron? Ondansetron is a medication used to treat nausea and vomiting that may be caused by surgery, chemotherapy, or radiation therapy. Ondansetron has also been prescribed during to help with symptoms of nausea and vomiting in (NVP). NVP is also referred to as morning sickness . Ondansetron is taken by mouth, infused into a vein (by IV) or given by injection into a muscle (IM). Ondansetron is sold under the brand name Zofran . What can I do to help control my nausea and vomiting? Vrvana has a helpful fact sheet on nausea in with recommendations. You can review it here: https://motherTranspond.org/fact-s heets/ywhxzz-yfqmukxy-cjsfnbllw -nvp/pdf/. Also, eating small meals often, drinking plenty of clear fluids, and avoiding triggers (such as odors, heat, and spicy or high fat foods) can help. Talk to your healthcare provider about which NVP treatments are right for you. I take ondansetron. Can it make it harder for me to become ? There are no studies that have looked to see if ondansetron could make it harder for a person to get . Studies in animals did not find that ondansetron would affect the ability to get . Does taking ondansetron increase the chance for miscarriage? Miscarriage can occur in any . One study did not find that miscarriage happened more often for those who reported that they used ondansetron in the first trimester of . Does taking ondansetron increase the chance of defects? Every starts out with a 3-5% chance of having a defect. This is called the background risk. Most studies have found no increased chance for defects among thousands of people who used ondansetron in the first trimester of . A few studies reported a very small (less than 1%) increase in the chance for a cleft palate (an opening in the roof of the mouth that may be repaired with surgery) or a heart defect. Because of other factors that could affect the pregnancies exposed to ondansetron, it is not known if ondansetron actually increases the chance of defects. Could taking ondansetron cause other complications? Studies did not find a higher chance of loss, delivery (delivery before 37 weeks of ), or low weight when ondansetron was used during . At higher doses, there have been reports that ondansetron use might cause a heart rhythm problem (called QT interval prolongation) in the person taking ondansetron. In severe cases, this could become an abnormal heart rhythm known as Torsades de Pointes. If you are taking ondansetron, you can talk to your healthcare provider about how to watch for changes in your heart rhythm. Does taking ondansetron in cause long-term problems in behavior or learning for the baby? One study looked at 78 infants who were exposed to ondansetron at any time during . The infants were looked at between 7 days to 2 months of age and did not show any signs of unusual behaviors. A single follow-up survey for about 25 of these children was sent in by the parents. The children were between 1 to 5 years old. The survey asked about behavior. The surveys did not report behavior differences in these children compared to children who were not exposed ondansetron during . There are no other studies looking at the use of ondansetron in and long-term effects for the baby. Can I breastfeed while taking ondansetron? There have been no studies in humans looking at the use of ondansetron during . Studies in animals suggest that ondansetron enters breast milk, but the effects of ondansetron on a infant are not known. If ondansetron use is necessary, it is not usually a reason to stop . A different drug may be considered, especially while a or infant. Be sure to talk to your healthcare provider about all your questions. I take ondansetron. Can it make it harder for me to get my partner or increase the chance of defects? There are no human studies looking at male use of ondansetron. Animal studies have not shown any effect on male fertility. In general, exposures that fathers and sperm donor have are unlikely to increase risks to a . For more information, please see the Vrvana fact sheet Paternal Exposures at https://motherTranspond.org/fact-s heets/jllkzpip-kztxsbhdn-kexdsa ncy/pdf/. Here are some links for wonderful Providers here in the community and surrounding areas. Do not hesitate to contact their offices, many are offering virtual visits during this time. 8-633-3-NXON0LXAR - [place] Maternal Mental Health Hotline If you are in suicidal crisis, please call or text 5-882-388-TALK ( ) or visit the National Suicide Prevention Lifeline website. mchb.[facility] facility[facility].gov [facility] Psychology, Psychiatry, Counseling Connect with therapist/ can do virtual visits [phone] Referral to the [facility] To schedule an appointment, please call the Center for Behavioral Health Appointment Line: [phone] option 1 [facility] - [place], [place] [address] [place] [address] [facility] [address] [place] [address] [facility] [address] [place] [address] [facility] [address] [place] [address] Ryan Jade MD [address] [place], [place] [id number] [facility] [address] [facility], [address] [place] [address] [facility] [address] [place] [address] [facility] [place] / [place] [phone]/ [phone] Zaina Busby [address] [facility] [phone] [facility] of [facility]ing and Mediation [place] / [place] [phone] [facility] services [facility] [address] [place] [address]/ [place] [facility] [place] [phone] Siva Payne, MARGE, CLC [facility] Workshops, telehealth and at home visits. [phone] [facility] counseling [place] 20 locations [place], [place], [place], [place], [place], [place], [place], [facility], [place], [place], [place], [place], [place], [place], [facility], [place], [place] ,[facility], [place], [place],[facility], [facility], [place], [facility], [facility], [place] www.Alta Devices [phone] Psychotherapy resources outside of [facility] are listed below [facility] Doculogy Psychotherapy Web: https://www.NEUWAY [employer]arma / Support International Online Provider Directory https://Armorize Technologies/ [facility] https://Stealth Therapeutics / Partners [facility]al Health and Wellness Web: https://Accounting SaaS [place]/ Center for Effective Living Web: https://www.effectiveTiger Pistolliving.co / LifeStance Web: https://Adictiz.Validroid/location /[facility]/[place]/ [facility] Web: https://www.signaturehealthinc. org/ The Centers Web: https://HiPer Technology.org/ Recovery Resources Mental health and substance abuse help Web: https://www.[place] Radio Station.org & RESOURCES Support International Direct peer support and connection to professional resources Non-Emergency Helpline Phone: / Text: 252.630.9471 Web: https://www..net/ Online Provider Directory: https://Groupe Adeuza.Validroid/ Online Support Meetings: https://www..net/get- help/xqh-cvrluk-znwugmv-meeting s/ TIRSO Baby and Vocal Music Teacher Services Web: https://Touchdown Technologies/ Vrvana Expert information on medication use during and Text: 802.242.3127 Web: https://comment.com/ NATIONAL REGISTRY FOR PSYCHIATRIC MEDICATIONS Currently studying the safety of antidepressants, ADHD medications and atypical antipsychotics taken during TO PARTICIPATE CALL TOLL-FREE: Web: https://womenentalhealth.org/ research/pregnancyregistry/ Support Groups: [facility]- Follow on facebook Baby Bistro support group led by [facility] department [facility] Mamas - Support Group [facility].org The POEM support group [phone] Www.poemonline.org Follow on facebook - POCHIKIS laird chapter Online support meetings PSI https://www..net/get- help/sna-ppntnm-esfmfif-meeting s/ [facility] mommy and me virtual support group 11:30-1pm Support for mothers and new babies and toddlers Tickfaw childbirth education: Childbirth @[facility].org or call [phone] CRISIS: CRISIS HOTLINE [phone], 911 or go to the nearest [facility] [phone] / [facility] [phone] https://www.burke rehabilitation hospitalrb.org Crisis text line text the word HOME to [address] [facility] [address] [place] [address] [facility] [address] www.Game NationluisVidavee Amy Tyson clinical counseling [address] [address] www.Zentact [phone] Holding space psychotherapy Talia Parikh POWER DRIVEN BRUSH MAKER REGRINDER-S [address] [facility] www.Ceptaris Therapeutics [phone]/ Shayy [phone] They all offer virtual. All work with trauma Support groups Online support meetings PSI https://www..net/get- help/sxi-ykklax-aymnhut-meeting s/ Here are the support groups they offer: Support of parents of 1 to 4 years old children POEM ( Outreach and Encouragement for Moms) offers free support for mothers experiencing depression, anxiety, and other mood and anxiety disorders. Masks are recommended but not required. No pre-registration required. Babies in arms welcome. meetings now take place on the and Friday of each month Location: [facility] [address] [place] [address] Room 122 (library room) 7-8:00 p.m. When you enter the [facility] parking lot off of [address] the entrance door closest to our meeting room is on the front of the building toward the right. For those who are more comfortable with a virtual platform, PO offers online support group options several days of the week. To register for an online group or to find out more about POEM, website at: https://mhaohio.org/get-help/nirmala edmondloepmx-oriuwq-uoetxt/zari-jane gillespie/ offer a confidential helpline: private [employer] group is called [facility] Center[facility] Al[facility] Here are the groups they offer: Traumatic childbirth resources: Http://pattch.org/ https://www.LendinodarlingIntigua.Validroid/ documented in this encounter [facility] 11-14-2023 Miscellaneous Notes Pt notified and voiced understanding. Has appointment on Friday for NOB. Anitha Roach LPN Would recommend VIt B6 and Unisom as first line for N/V in . Will not order zofran until she is seen for new ob appt. Patient has new ob appointment 11/17 and is approx 9w 3d and c/o nausea that last most of the day.Patient states that she had a few Zofran left from previous and only has 1 table left and has had to take 1 tablet every day for the past few days to get her through the day and is requesting a refill. Please advise. documented in this encounter [facility] 06-30-2023 Note HNO ID: [id number] Author: Elizabeth Juarez APRN.RENY Service: ? Author Type: Equipment Operator/Laborer/Supervisor Type: Progress Notes Filed: 06/30/2023 1:06 PM Note Text: Shira Lepe is a 33 year old female who presents for problem visit of irregular bleeding and desire to discuss recent pelvic ultrasound findings. HPI: Missed AB via TVUS on 01/24/23. CR length measuring 6 weeks gestation but was 8.4 weeks by LMP. HCG levels continued to decrease. She desired no interventions at the time due to bleeding and passing on her own. Last HCG level was drawn on 02/17/23 and was 3,125. She stopped having levels drawn because It was too much emotionally . She never had HCG level drawn that was zero. Sent message earlier this month about continued bleeding for the past 4 months since miscarriage. Pelvic US and HCG levels ordered and completed on 06/27/23. Pelvic US shows adenomyosis. Uterine endometrium was 0.9 cm, no cysts, fibroids or polyps visualized. HCG level was 8.8. Here today to discuss treatment and options for adenomyosis. Cannot take OCP due to migraines and history of blood clots. Patient does not desire ablation or hysterectomy unless everything including ovaries can be removed. She is very tearful and asking for Celexa to be increased. Stated upset with diagnosis and unsure of which treatment option to do at this time. Declines Mirena IUD and unsure if she wants to take oral control (progesterone only). She did not take Aygestin taper ordered because she thought she couldn't due to migraines and blood clots. She reports only spotting today . Denies ever having any pain or cramps , just continued bleeding. Unsure if desires more children. 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: 04/29/2023 (Within Days), Unknown Age at Menarche: Age at First : Age at Menopause: Product Development Worker History Comments: Sexual Activity: Yes; Male Contraception: No contraception data on record PAST MEDICAL HISTORY Diagnosis Date Anemia Complication of anesthesia MEDICATION GIVEN TO SEDATE PT WITH TEAR DUCT SURGERY CAUSED ANAPHYLAXIS Congenital hip dysplasia wore brace Depression 11/25/2012 Herpes simplex virus (HSV) infection Migraines depression Preeclampsia Pyelonephritis 05/2022 Pyloric stenosis Stress headache 04/18/2014 VSD (ventricular septal defect) PAST SURGICAL HISTORY Procedure Laterality Date PARTIAL HYMENECTOMY PAST SURGICAL HISTORY OF surgery on tear ducts PYLOROMYOTOMY CUTTING PYLORIC MUSC pyloric stenosis as UNSPECIFIED ORAL SURGERY PROCEDURE, BY REPORT [place] teeth removed FAMILY HISTORY Problem Relation Age of Onset Arthritis Mother Heart Father Blood Disease Father clotting disease caused clotts Thyroid Father other (blood clotting disorder) Father MTHFR MUTATION Heart Maternal Grandmother Coronary Artery Disease Maternal Grandmother other (reflux-gstric) Maternal Grandfather Alcohol/Drug Paternal Grandmother Coronary Artery Disease Paternal Grandfather Prostate Cancer Paternal Grandfather Alcohol/Drug Paternal Grandfather No Known Problems Daughter No Known Problems Daughter No Known Problems Daughter No Known Problems Son Heart Maternal Uncle Heart Maternal Uncle Cancer Maternal Uncle stomach cancer Blood Disease Paternal Uncle ANTITHOSPOLIPID ANTIBODY SYNDROME Blood Disease Paternal Uncle REVIEW OF SYSTEMS Abdomen: No bloating, early satiety, indigestion, or increased flatulence. No abdominal pain, nausea, vomiting, diarrhea, or constipation. Bladder: No dysuria, gross hematuria, urinary frequency, urinary urgency, or incontinence. Breast: No breast lumps, nipple d/c, overlying skin changes, redness or skin retraction. Expanded ROS: N/A Allergies and current medication updated:Yes EXAM: BP 120/72 Wt 145 lb (65.8kg) LMP 04/29/2023 GENERAL: upset and emotional, female in mild distress HEENT: Normocephalic and atraumatic NECK: Supple and full range of motion DERMATOLOGY: Normal and without lesions NEURO: alert and oriented x3,exam grossly non-focal EXTREMITIES: normal ASSESSMENT/PLAN: 1. Abnormal uterine bleeding (AUB) - ICD9: 626.9, ICD10: N93.9 (primary diagnosis) 2. Uterus, adenomyosis - ICD9: 617.0, ICD10: N80.00 3. Anxiety and depression - ICD9: 300.00, 311, ICD10: F41.9, F32.A 4. Elevated serum hCG - ICD9: 259.9, ICD10: R79.89 - Emotional support provided - Celexa 20 mg PO daily- increased and patient to follow up with PCP for refills - Hand out given on information about adenomyosis diagnosis and treatment options - Repeat HCG level this week- level on 06/27/23 was 8.8- unsure why not at zero and cannot see trend due to no levels drawn since 01/2023 - Will follow up with patient after HCG and time to think about her treatment options Elizabeth Juarez APRN.[facility] 06-30-2023 History of Presen t illness Narrative Shira Lepe is a 33 year old female who presents for problem visit of irregular bleeding and desire to discuss recent pelvic ultrasound findings. HPI: Missed AB via TVUS on 01/24/23. CR length measuring 6 weeks gestation but was 8.4 weeks by LMP. HCG levels continued to decrease. She desired no interventions at the time due to bleeding and passing on her own. Last HCG level was drawn on 02/17/23 and was 3,125. She stopped having levels drawn because It was too much emotionally . She never had HCG level drawn that was zero. Sent message earlier this month about continued bleeding for the past 4 months since miscarriage. Pelvic US and HCG levels ordered and completed on 06/27/23. Pelvic US shows adenomyosis. Uterine endometrium was 0.9 cm, no cysts, fibroids or polyps visualized. HCG level was 8.8. Here today to discuss treatment and options for adenomyosis. Cannot take OCP due to migraines and history of blood clots. Patient does not desire ablation or hysterectomy unless everything including ovaries can be removed. She is very tearful and asking for Celexa to be increased. Stated upset with diagnosis and unsure of which treatment option to do at this time. Declines Mirena IUD and unsure if she wants to take oral control (progesterone only). She did not take Aygestin taper ordered because she thought she couldn't due to migraines and blood clots. She reports only spotting today . Denies ever having any pain or cramps , just continued bleeding. Unsure if desires more children. 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: 04/29/2023 (Within Days), Unknown Age at Menarche: Age at First : Age at Menopause: Product Development Worker History Comments: Sexual Activity: Yes; Male Contraception: No contraception data on record PAST MEDICAL HISTORY Diagnosis Date Anemia Complication of anesthesia MEDICATION GIVEN TO SEDATE PT WITH TEAR DUCT SURGERY CAUSED ANAPHYLAXIS Congenital hip dysplasia wore brace Depression 11/25/2012 Herpes simplex virus (HSV) infection Migraines depression Preeclampsia Pyelonephritis 05/2022 Pyloric stenosis Stress headache 04/18/2014 VSD (ventricular septal defect) PAST SURGICAL HISTORY Procedure Laterality Date PARTIAL HYMENECTOMY PAST SURGICAL HISTORY OF surgery on tear ducts PYLOROMYOTOMY CUTTING PYLORIC MUSC pyloric stenosis as UNSPECIFIED ORAL SURGERY PROCEDURE, BY REPORT [place] teeth removed FAMILY HISTORY Problem Relation Age of Onset Arthritis Mother Heart Father Blood Disease Father clotting disease caused clotts Thyroid Father other (blood clotting disorder) Father MTHFR MUTATION Heart Maternal Grandmother Coronary Artery Disease Maternal Grandmother other (reflux-gstric) Maternal Grandfather Alcohol/Drug Paternal Grandmother Coronary Artery Disease Paternal Grandfather Prostate Cancer Paternal Grandfather Alcohol/Drug Paternal Grandfather No Known Problems Daughter No Known Problems Daughter No Known Problems Daughter No Known Problems Son Heart Maternal Uncle Heart Maternal Uncle Cancer Maternal Uncle stomach cancer Blood Disease Paternal Uncle ANTITHOSPOLIPID ANTIBODY SYNDROME Blood Disease Paternal Uncle REVIEW OF SYSTEMS Abdomen: No bloating, early satiety, indigestion, or increased flatulence. No abdominal pain, nausea, vomiting, diarrhea, or constipation. Bladder: No dysuria, gross hematuria, urinary frequency, urinary urgency, or incontinence. Breast: No breast lumps, nipple d/c, overlying skin changes, redness or skin retraction. Expanded ROS: N/A Allergies and current medication updated:Yes EXAM: BP 120/72 Wt 145 lb (65.8kg) LMP 04/29/2023 GENERAL: upset and emotional, female in mild distress HEENT: Normocephalic and atraumatic NECK: Supple and full range of motion DERMATOLOGY: Normal and without lesions NEURO: alert and oriented x3,exam grossly non-focal EXTREMITIES: normal ASSESSMENT/PLAN: 1. Abnormal uterine bleeding (AUB) - ICD9: 626.9, ICD10: N93.9 (primary diagnosis) 2. Uterus, adenomyosis - ICD9: 617.0, ICD10: N80.00 3. Anxiety and depression - ICD9: 300.00, 311, ICD10: F41.9, F32.A 4. Elevated serum hCG - ICD9: 259.9, ICD10: R79.89 - Emotional support provided - Celexa 20 mg PO daily- increased and patient to follow up with PCP for refills - Hand out given on information about adenomyosis diagnosis and treatment options - Repeat HCG level this week- level on 06/27/23 was 8.8- unsure why not at zero and cannot see trend due to no levels drawn since 01/2023 - Will follow up with patient after HCG and time to think about her treatment options Elizabeth Juarez APRN.CNM documented in this encounter [facility] 06-27-2023 Miscellaneous Notes Pt notified and had many questions about results. Pt was assisted to schedule appointment. Anitha Roach LPN Please let the patient know that her pelvic ultrasound shows adenomyosis and this is likely the reason for the bleeding. I will order her an Aygestin taper in the hopes that this would stop the bleeding. Is patient wanting to get ? If not my recommendation would be to start some control or have a Mirena IUD placed. If patient has questions regarding this that she can set up a appointment. documented in this encounter [facility] 06-27-2023 Note HNO ID: [id number] Author: Kim Loomis RDMS Service: ? Author Type: Quill Buncher And Sorter Type: Progress Notes Filed: 06/27/2023 11:44 AM Note Text: Radiology Service Progress Note PATIENT NAME: Shira Lepe DATE OF SERVICE: June 27, 2023 TIME: 11:44 AM PATIENT IDENTITY VERIFICATION COMPLETED USING TWO (2) IDENTIFIERS: Name and Date of confirmed by patient verbally. FALL SCREENING: Has the patient had 2 falls in the last year or 1 fall with injury or currently using an Ambulatory Assistive Device (Walker, Cane, Wheelchair, Crutches, etc.)? No PATIENT GENDER DATA: Female. status: : No status: NO. PATIENT RELEVANT IMPLANT DATA REVIEWED: Not Applicable RADIOLOGY DEPARTMENT: Ultrasound PERIPHERAL IV DATA: Not applicable SIGNED BY: Kim Loomis RDMS RVT June 27, 2023 11:44 AM [facility] 06-27-2023 History of Presen t illness Narrative Radiology Service Progress Note PATIENT NAME: Shira Lepe DATE OF SERVICE: June 27, 2023 TIME: 11:44 AM PATIENT IDENTITY VERIFICATION COMPLETED USING TWO (2) IDENTIFIERS: Name and Date of confirmed by patient verbally. FALL SCREENING: Has the patient had 2 falls in the last year or 1 fall with injury or currently using an Ambulatory Assistive Device (Walker, Cane, Wheelchair, Crutches, etc.)? No PATIENT GENDER DATA: Female. status: : No status: NO. PATIENT RELEVANT IMPLANT DATA REVIEWED: Not Applicable RADIOLOGY DEPARTMENT: Ultrasound PERIPHERAL IV DATA: Not applicable SIGNED BY: Kim Loomis RDMS RVT June 27, 2023 11:44 AM documented in this encounter [facility] 03-24-2023 Note HNO ID: [id number] Author: Emily Sherwood APRN.CHROME TANNER Service: ? Author Type: Nurse Practitioner Type: Progress Notes Filed: 03/24/2023 10:37 AM Note Text: Shira Lepe is a 32 year old female who presents for Celexa follow up. HPI: pt states that she is doing much better since starting the Celexa. She is not crying daily, feeling less anger and frustrated. Still having some drowsiness/low energy. She states that she is 75% better with the medication and would like to continue it. 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 History Comments: Sexual Activity: Yes; Male Contraception: No contraception data on record PAST MEDICAL HISTORY Diagnosis Date Anemia Complication of anesthesia MEDICATION GIVEN TO SEDATE PT WITH TEAR DUCT SURGERY CAUSED ANAPHYLAXIS Congenital hip dysplasia wore brace Depression 11/25/2012 Herpes simplex virus (HSV) infection Migraines depression Preeclampsia Pyelonephritis 05/2022 Pyloric stenosis Stress headache 04/18/2014 VSD (ventricular septal defect) PAST SURGICAL HISTORY Procedure Laterality Date PARTIAL HYMENECTOMY PAST SURGICAL HISTORY OF surgery on tear ducts PYLOROMYOTOMY CUTTING PYLORIC MUSC pyloric stenosis as infant UNSPECIFIED ORAL SURGERY PROCEDURE, BY REPORT [place] teeth removed FAMILY HISTORY Problem Relation Age of Onset Arthritis Mother Heart Father Blood Disease Father clotting disease caused clotts Thyroid Father other (blood clotting disorder) Father MTHFR MUTATION Heart Maternal Grandmother Coronary Artery Disease Maternal Grandmother other (reflux-gstric) Maternal Grandfather Alcohol/Drug Paternal Grandmother Coronary Artery Disease Paternal Grandfather Prostate Cancer Paternal Grandfather Alcohol/Drug Paternal Grandfather No Known Problems Daughter No Known Problems Daughter No Known Problems Daughter No Known Problems Son Heart Maternal Uncle Heart Maternal Uncle Cancer Maternal Uncle stomach cancer Blood Disease Paternal Uncle ANTITHOSPOLIPID ANTIBODY SYNDROME Blood Disease Paternal Uncle Social History Tobacco Use Smoking status: Never Smokeless tobacco: Never Vaping Use Vaping Use: Never used Substance Use Topics Alcohol use: Not Currently Comment: Rarely,NOT WHILE Drug use: No Current Outpatient Medications Medication Sig citalopram hydrobromide (CELEXA) 10 mg tablet Take 1 tablet by mouth once daily. topiramate (TOPAMAX) 50 mg tablet Take 1 tablet by mouth twice daily. Lactobacillus acidophilus (FLORAJEN ACIDOPHILUS) 20 billion cell cap Take by mouth. prental multivitamin 27 mg iron- 800 mcg tablet Take 1 tablet by mouth once daily. cholecalciferol, vitamin D3, (VITAMIN D3 ORAL) Take by mouth. ondansetron orally disintegrating (ZOFRAN ODT) 4 mg disintegrating tablet Take 1 tablet by mouth every 8 hours as needed for nausea/vomiting. ondansetron orally disintegrating (ZOFRAN ODT) 4 mg disintegrating tablet Take 1 tablet by mouth every 8 hours as needed for nausea/vomiting. Vrxoiyah-Nn-Ufm-Fe-FA ( VITAMIN) tab Take 1 tablet by mouth. ACETAMINOPHEN (TYLENOL ORAL) Take by mouth as needed. No current facility-administered medications for this visit. Allergies As of Date: 03/24/2023 Allergen Noted Reaction CEPHALEXIN 05/27/2013 Vomiting LATEX 04/17/2010 Rash and Swelling OTHER 08/08/2004 Unknown ZOLOFT [SERTRALINE HCL] 04/24/2015 Mental Status Change Fully Assessed 02/17/2023 REVIEW OF SYSTEMS Expanded ROS: N/A Allergies and current medication updated:Yes EXAM: LMP 11/25/2022 GENERAL: pleasant, female in no apparent distress HEENT: Normocephalic, atraumatic, mucus membranes moist, and no lesions CHEST: Normal inspiratory effort NEURO: alert and oriented x3,exam grossly non-focal EXTREMITIES: normal ASSESSMENT/PLAN: 1. Anxiety and depression - ICD9: 300.00, 311, ICD10: F41.9, F32.A Celexa 10 mg ordered Follow up for annual or as needed. Emily Sherwood, POT OPERATOR.CHROME TANNER Medical Decision Making: Problems: Low: Stable chronic illness Risk: Low: Low risk from testing/treatment Moderate: Drug management Medical Decision Making Level: 3 - Low [facility] 03-24-2023 History of Presen t illness Narrative Shira Lepe is a 32 year old female who presents for Celexa follow up. HPI: pt states that she is doing much better since starting the Celexa. She is not crying daily, feeling less anger and frustrated. Still having some drowsiness/low energy. She states that she is 75% better with the medication and would like to continue it. 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 History Comments: Sexual Activity: Yes; Male Contraception: No contraception data on record PAST MEDICAL HISTORY Diagnosis Date Anemia Complication of anesthesia MEDICATION GIVEN TO SEDATE PT WITH TEAR DUCT SURGERY CAUSED ANAPHYLAXIS Congenital hip dysplasia wore brace Depression 11/25/2012 Herpes simplex virus (HSV) infection Migraines depression Preeclampsia Pyelonephritis 05/2022 Pyloric stenosis Stress headache 04/18/2014 VSD (ventricular septal defect) PAST SURGICAL HISTORY Procedure Laterality Date PARTIAL HYMENECTOMY PAST SURGICAL HISTORY OF surgery on tear ducts PYLOROMYOTOMY CUTTING PYLORIC MUSC pyloric stenosis as UNSPECIFIED ORAL SURGERY PROCEDURE, BY REPORT [place] teeth removed FAMILY HISTORY Problem Relation Age of Onset Arthritis Mother Heart Father Blood Disease Father clotting disease caused clotts Thyroid Father other (blood clotting disorder) Father MTHFR MUTATION Heart Maternal Grandmother Coronary Artery Disease Maternal Grandmother other (reflux-gstric) Maternal Grandfather Alcohol/Drug Paternal Grandmother Coronary Artery Disease Paternal Grandfather Prostate Cancer Paternal Grandfather Alcohol/Drug Paternal Grandfather No Known Problems Daughter No Known Problems Daughter No Known Problems Daughter No Known Problems Son Heart Maternal Uncle Heart Maternal Uncle Cancer Maternal Uncle stomach cancer Blood Disease Paternal Uncle ANTITHOSPOLIPID ANTIBODY SYNDROME Blood Disease Paternal Uncle Social History Tobacco Use Smoking status: Never Smokeless tobacco: Never Vaping Use Vaping Use: Never used Substance Use Topics Alcohol use: Not Currently Comment: Rarely,NOT WHILE Drug use: No Current Outpatient Medications Medication Sig citalopram hydrobromide (CELEXA) 10 mg tablet Take 1 tablet by mouth once daily. topiramate (TOPAMAX) 50 mg tablet Take 1 tablet by mouth twice daily. Lactobacillus acidophilus (FLORAJEN ACIDOPHILUS) 20 billion cell cap Take by mouth. prental multivitamin 27 mg iron- 800 mcg tablet Take 1 tablet by mouth once daily. cholecalciferol, vitamin D3, (VITAMIN D3 ORAL) Take by mouth. ondansetron orally disintegrating (ZOFRAN ODT) 4 mg disintegrating tablet Take 1 tablet by mouth every 8 hours as needed for nausea/vomiting. ondansetron orally disintegrating (ZOFRAN ODT) 4 mg disintegrating tablet Take 1 tablet by mouth every 8 hours as needed for nausea/vomiting. Vbewetqq-Yr-Pey-Fe-FA ( VITAMIN) tab Take 1 tablet by mouth. ACETAMINOPHEN (TYLENOL ORAL) Take by mouth as needed. No current facility-administered medications for this visit. Allergies As of Date: 03/24/2023 Allergen Noted Reaction CEPHALEXIN 05/27/2013 Vomiting LATEX 04/17/2010 Rash and Swelling OTHER 08/08/2004 Unknown ZOLOFT [SERTRALINE HCL] 04/24/2015 Mental Status Change Fully Assessed 02/17/2023 REVIEW OF SYSTEMS Expanded ROS: N/A Allergies and current medication updated:Yes EXAM: LMP 11/25/2022 GENERAL: pleasant, female in no apparent distress HEENT: Normocephalic, atraumatic, mucus membranes moist, and no lesions CHEST: Normal inspiratory effort NEURO: alert and oriented x3,exam grossly non-focal EXTREMITIES: normal ASSESSMENT/PLAN: 1. Anxiety and depression - ICD9: 300.00, 311, ICD10: F41.9, F32.A Celexa 10 mg ordered Follow up for annual or as needed. Emily Sherwood APRN.CNP Medical Decision Making: Problems: Low: Stable chronic illness Risk: Low: Low risk from testing/treatment Moderate: Drug management Medical Decision Making Level: 3 - Low documented in this encounter [facility] 02-17-2023 Note HNO ID: [id number] Author: Emily Sherwood APRN.CNP Service: ? Author Type: Nurse Practitioner Type: Progress Notes Filed: 02/17/2023 10:05 AM Note Text: Shira Lepe is a 32 year old female who presents for problem visit increase depression and anxiety HPI: Patient states that since the miscarriage she has experienced increased a depression and anxiety. She is having feelings of anger, frustration, and crying. She does have a history of depression and has tried Wellbutrin, Zoloft, and Prozac but did not have good success with them. She denies any suicidal ideations. 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 History Comments: Sexual Activity: Yes; Male Contraception: No contraception data on record PAST MEDICAL HISTORY Diagnosis Date Anemia Complication of anesthesia MEDICATION GIVEN TO SEDATE PT WITH TEAR DUCT SURGERY CAUSED ANAPHYLAXIS Congenital hip dysplasia wore brace Depression 11/25/2012 Herpes simplex virus (HSV) infection Migraines depression Preeclampsia Pyelonephritis 05/2022 Pyloric stenosis Stress headache 04/18/2014 VSD (ventricular septal defect) PAST SURGICAL HISTORY Procedure Laterality Date PARTIAL HYMENECTOMY PAST SURGICAL HISTORY OF surgery on tear ducts PYLOROMYOTOMY CUTTING PYLORIC MUSC pyloric stenosis as infant UNSPECIFIED ORAL SURGERY PROCEDURE, BY REPORT [place] teeth removed FAMILY HISTORY Problem Relation Age of Onset Arthritis Mother Heart Father Blood Disease Father clotting disease caused clotts Thyroid Father other (blood clotting disorder) Father MTHFR MUTATION Heart Maternal Grandmother Coronary Artery Disease Maternal Grandmother other (reflux-gstric) Maternal Grandfather Alcohol/Drug Paternal Grandmother Coronary Artery Disease Paternal Grandfather Prostate Cancer Paternal Grandfather Alcohol/Drug Paternal Grandfather No Known Problems Daughter No Known Problems Daughter No Known Problems Daughter No Known Problems Son Heart Maternal Uncle Heart Maternal Uncle Cancer Maternal Uncle stomach cancer Blood Disease Paternal Uncle ANTITHOSPOLIPID ANTIBODY SYNDROME Blood Disease Paternal Uncle Social History Tobacco Use Smoking status: Never Smokeless tobacco: Never Vaping Use Vaping Use: Never used Substance Use Topics Alcohol use: Not Currently Comment: Rarely,NOT WHILE Drug use: No Current Outpatient Medications Medication Sig Lactobacillus acidophilus (FLORAJEN ACIDOPHILUS) 20 billion cell cap Take by mouth. prental multivitamin 27 mg iron- 800 mcg tablet Take 1 tablet by mouth once daily. cholecalciferol, vitamin D3, (VITAMIN D3 ORAL) Take by mouth. ondansetron orally disintegrating (ZOFRAN ODT) 4 mg disintegrating tablet Take 1 tablet by mouth every 8 hours as needed for nausea/vomiting. topiramate (TOPAMAX) 50 mg tablet Take 1 tablet by mouth twice daily. Xoixhpzo-Xx-Xnv-Fe-FA ( VITAMIN) tab Take 1 tablet by mouth. ACETAMINOPHEN (TYLENOL ORAL) Take by mouth as needed. ondansetron orally disintegrating (ZOFRAN ODT) 4 mg disintegrating tablet Take 1 tablet by mouth every 8 hours as needed for nausea/vomiting. No current facility-administered medications for this visit. Allergies As of Date: 02/17/2023 Allergen Noted Reaction CEPHALEXIN 05/27/2013 Vomiting LATEX 04/17/2010 Rash and Swelling OTHER 08/08/2004 Unknown ZOLOFT [SERTRALINE HCL] 04/24/2015 Mental Status Change Fully Assessed 02/17/2023 REVIEW OF SYSTEMS Expanded ROS: N/A Allergies and current medication updated:Yes EXAM: Wt 154 lb 12.8 oz (70.2kg) LMP 11/25/2022 GENERAL: emotional, female in no apparent distress HEENT: Normocephalic, atraumatic, mucus membranes moist, and no lesions CHEST: Normal inspiratory effort NEURO: alert and oriented x3,exam grossly non-focal EXTREMITIES: normal ASSESSMENT/PLAN: 1. Anxiety and depression - ICD9: 300.00, 311, ICD10: F41.9, F32.A (primary diagnosis) Celexa 10 mg ordered Follow up in 5 weeks or sooner if needed 2. depression - ICD9: 648.44, 311, ICD10: F53.0 Emily Sherwood APRN.CHROME TANNER Medical Decision Making: Problems: Moderate: 1+ chronic illnesses with change Risk: Low: Low risk from testing/treatment Moderate: Drug management Medical Decision Making Level: 4 - Moderate [facility] 02-10-2023 Miscellaneous Notes Patient called back with fax #[phone]. Letter faxed. Arianne Jeffers RN Patient having a missed AB. Would like a letter for [facility] that she is having a miscarriage. Patient will call back with their fax number. Letter in Fax room nursing desk. Keerthi Aburto RN documented in this encounter [facility] 02-10-2023 Instructions Elizabeth Juarez APRN.CNM - 02/10/2023 8:27 AM EDT Here are some links for wonderful Providers here in the community and surrounding areas. Do not hesitate to contact their offices, many are offering virtual visits during this time. [phone] - [place] Maternal Mental Health Hotline If you are in suicidal crisis, please call or text [phone]-TALK ( ) or visit the National Suicide Prevention Lifeline website. mchb.[facility] facility[facility].gov [facility] Psychology, Psychiatry, Counseling Connect with therapist/ can do virtual visits [phone] Referral to the [facility] To schedule an appointment, please call the Center for Behavioral Health Appointment Line: [phone] option 1 Counseling Center - [place], [place] [address] [place] [address] [facility] [address] [place] [address] [facility] [address] [place] [address] [facility] [address] [place], [place] [address] Ryan Jade MD [address] [place] [address] [facility] [address] [facility], [address] [place] [address] [facility] [address] [place] [address] [facility] Services [place] / [place] [phone]/ [phone] [facility] [address] [facility] [address] [facility] [phone] [facility] Counseling and Mediation [place] / [place] [phone] Behavioral health services of [facility] [address] [place] [address]/ [place] [phone] Siva Payne, MARGE, CLC [facility] Workshops, telehealth and at home visits. [phone] Humanistic counseling center 20 locations [facility], [place], [place], [place], [place], [place], [facility], [place], [place], [place], [place], [place], [place], [facility], [place], [place] ,[facility], [place], [place],[facility], [facility], [place], [facility], [place], [place] www.Zonbo Mediacopresbyterian kaseman hospitalPrediculous [phone] Psychotherapy resources outside of [facility] are listed below Holding Space Psychotherapy Web: https://wwwInfusion Medical / Support International Online Provider Directory https://Armorize Technologies/ [facility] https://insightcounsPrematics / Partners for Behavioral Health and Wellness Web: https://Accounting SaaS [place]/ [place] for Effective Living Web: https://WhoWantsMe.effectiveTiger Pistolliving.[facility]/ LifeStance Web: https://[address]/location /state/[place]/ [facility] Web: https://www.[facility]unm [facility]. org/ The Centers Web: https://HiPer Technology.Cursogram/ Recovery Resources Mental health and substance abuse help Web: https://www.Foruforever & RESOURCES Support International Direct peer support and connection to professional resources Non-Emergency Helpline Phone: / Text: [phone] Web: https://www..net/ Online Provider Directory: https://Armorize Technologies/ Online Support Meetings: https://www..net/get- help/apg-ajxmdj-lchkefy-meeting s/ TIRSO Baby and Vocal Music Teacher Services Web: https://wwwMetrigo/ MotherToBaby Expert information on medication use during and Text: 502.199.9115 Web: https://comment.com/ NATIONAL REGISTRY FOR PSYCHIATRIC MEDICATIONS Currently studying the safety of antidepressants, ADHD medications and atypical antipsychotics taken during TO PARTICIPATE CALL TOLL-FREE: Web: https://womensmentalhealth.org/ research/pregnancyregistry/ Support Groups: [facility]- Follow on facebook Baby Bistro support group led by [facility] department Resilient Mamas - Support Group [facility].org The POEM support group [phone] Www.poemonline.org Follow on facebook - ZARI laird chapter Online support meetings PSI https://www..net/get- help/fzp-cthwck-jfcxmeo-meeting s/ [facility] momadriano and me virtual support group 11:30-1pm Support for mothers and new babies and toddlers T[place]faw childbirth education: Childbirth @[facility].org or call [phone] CRISIS: CRISIS HOTLINE [phone], 911 or go to the nearest ER. [facility] [phone] / [facility] [phone] https://www.burke rehabilitation hospitalrb.org Crisis text line text the word HOME to [address] [facility] Counseling [address] [facility] [address] www.Mitralign Amy Tyson clinical counseling [address] [address] www.Zentact [phone] Holding space psychotherapy Talia Parikh POWER DRIVEN BRUSH MAKER REGRINDER-S [address] [facility] www.Ceptaris Therapeutics [phone]/ [place] [phone] They all offer virtual. All work with trauma Support groups Online support meetings PSI https://www..net/get- help/iyx-rfhskl-vioupvm-meeting s/ Here are the support groups they offer: Support of parents of 1 to 4 years old children POEM ( Outreach and Encouragement for Moms) offers free support for mothers experiencing depression, anxiety, and other mood and anxiety disorders. Masks are recommended but not required. No pre-registration required. Babies in arms welcome. meetings now take place on the and Friday of each month Location: [facility] [address] [place] [address] Room 122 (library room) 7-8:00 p.m. When you enter the [facility] parking lot off of [address] the entrance door closest to our meeting room is on the front of the building toward the right. For those who are more comfortable with a virtual platform, PO offers online support group options several days of the week. To register for an online group or to find out more about POEM, website at: https://mhaohio.org/get-help/nirmala edmondzxexjb-sblqhj-greiie/zari-jane gillespie/ offer a confidential helpline: private Facebook group is called ZARI [place] Here are the groups they offer: Traumatic childbirth resources: Http://patRealtyAPX.Cursogram/ https://www.LendinodarlingORDISSIMO/ documented in this encounter [facility] 02-10-2023 Miscellaneous Notes Shira Lepe is a 32 year old female who presents at 8w3d as a follow up visit for viablilty. HCG levels have decreased from 35,182 to 19,208 last week. Started bleeding like a period last Friday and continues to bleed today . Denies any passage of large clots or painful cramping. Stated just feels like she is on her period. TVUS - Gestational sac present with NO yolk sac or pole visualized. ASSESSMENT/PLAN: 1. Missed - ICD9: 632, ICD10: O02.1 (primary diagnosis) 2. Bleeding in early - ICD9: 640.90, ICD10: O20.9 - HCG levels weekly until zero - Reviewed continued expectant management vs. Medical/ Surgical intervention. Patient desires expectant management at this time. Will follow up with patient next week after HCG levels - Bleeding precautions reviewed - B positive - Support provided Elizabeth Juarez APRN.CNM documented in this encounter [facility] 01-29-2023 Miscellaneous Notes Called and spoke with patient regarding HCG levels. Initial level 42,988 and follow up was 35, 182. Discussed decreasing levels are indication of miscarriage. Bleeding precautions reviewed and when to report to ED. Patient denies any bleeding or cramping at this time. She will have another HCG level next week and already has follow up visit in office on 02/10/23. Support provided. She desires expectant management at this time. Elizabeth Juarez APRN.CNM documented in this encounter [facility] 01-24-2023 Note HNO ID: [id number] Author: Elizabeth Juarez APRN.CNM Service: ? Author Type: Equipment Operator/Laborer/Supervisor Type: Progress Notes Filed: 01/24/2023 4:43 PM Note Text: OB point of care ultrasound was performed. See imaging tab for details. Elizabeth Juarez APRN.CNM [facility] 01-24-2023 Note HNO ID: [id number] Author: Elizabeth Juarez APRN.CNM Service: ? Author Type: Equipment Operator/Laborer/Supervisor Type: Progress Notes Filed: 01/24/2023 10:05 AM Note Text: OB point of care ultrasound was performed. See imaging tab for details. Elizabeth Juarez APRN.CNM INITIAL OB ASSESSMENT OB Provider: Elizabeth Juarez APRN.CNM HPI: Shira is a 32 year old White here to establish Obstetrical Care. Patient's last menstrual period was 11/25/2022 (approximate). from OB Dating Form. Cycles regular- LMP was the end of October was unplanned but accepted. Complaints: nausea without vomiting and vaginal spotting- Sometimes spotting bright red and brown . Denies any pain or cramping. OB History T3 L4 SAB0 IAB0 Ectopic0 Multiple0 Live Births4 Previous history: Prior : never History of 4th degree laceration: No History of shoulder dystocia: No History of Hypertensive disorders including pre-eclampsia, chronic hypertension or gestational hypertension: Yes Pre eclampsia - 1st preg, GHTN- last History of gestational diabetes: No Patient's Risk Screening for delivery: Delivered 1st at 35.6 days gestation-water broke, spontaneous labor MEDICAL/PSYCHOSOCIAL HISTORY: History of hemorrhage or bleeding concerns: No Thyroid Disease: No History of chronic hypertension: No History of pre-existing diabetes: No ABO/RH(D) Date Value Ref Range Status 02/25/2020 B POSITIVE Final BMI 26.57 kg/(m2) History of abnormal pap: No Prior treatment for cervical dysplasia: none. History of STDs: None and HSV- last outbreak - unsure Tobacco use: No Caffeine use: Yes- black tea Drug use: No Alcohol use: No Multivitamin with Folic acid: Yes Religion or heritage: No Would refuse blood transfusion if medically necessary: No Are you currently employed? 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 Do you have any safety concerns or history of traumatic events that you would like to discuss with your provider: No How often does this describe you? I don't have enough money to pay my bills: Rarely Within the past 12 months, have you worried that your food would run out before you had money to buy more: Never In the past 12 months, has lack of reliable transportation kept you from going to medical appointments or work, or from keeping things needed for daily living: Never In the past 12 months, have you had any concerns about having a place to live, or about the condition or quality of your housing: Never Are there any cultural or spiritual needs we should be aware of: No Over the past two weeks have you felt down, depressed, or hopeless: Negative Over the past two weeks have you felt little interest or pleasure in doing things: Negative GENETIC SCREENING: Partner present: No Patient verbalized knowledge of partner family health history: Yes Do you or your partner have any personal or family history of defects not previously discussed: No Do you have history of a complicated by anomaly, genetic condition, or demise: No Marital Status: Partner: Name: Earl Lepe Age: 34 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 Gender: Male History of STDs: HSV PAST MEDICAL HISTORY Diagnosis Date Anemia Complication of anesthesia MEDICATION GIVEN TO SEDATE PT WITH TEAR DUCT SURGERY CAUSED ANAPHYLAXIS Congenital hip dysplasia wore brace Depression 11/25/2012 Herpes simplex virus (HSV) infection Migraines depression Preeclampsia Pyelonephritis 05/2022 Pyloric stenosis Stress headache 04/18/2014 VSD (ventricular septal defect) PAST SURGICAL HISTORY Procedure Laterality Date PARTIAL HYMENECTOMY PAST SURGICAL HISTORY OF surgery on tear ducts PYLOROMYOTOMY CUTTING PYLORIC MUSC pyloric stenosis as infant UNSPECIFIED ORAL SURGERY PROCEDURE, BY REPORT [place] teeth removed Current Outpatient Medications Medication Sig Dispense Refill Lactobacillus acidophilus (FLORAJEN ACIDOPHILUS) 20 billion cell cap Take by mouth. cholecalciferol, vitamin D3, (VITAMIN D3 ORAL) Take by mouth. ondansetron orally disintegrating (ZOFRAN ODT) 4 mg disintegrating tablet Take 1 tablet by mouth every 8 hours as needed for nausea/vomiting. 30 tablet 1 ondansetron orally disintegrating (ZOFRAN ODT) 4 mg disintegrating tablet Take 1 tablet by mouth every 8 hours as needed for nausea/vomiting. 30 tablet 0 topiramate (TOPAMAX) 50 mg tablet Take 1 tablet by mouth twice daily. 60 tablet 11 Qdsffrpq-Qs-Awf-Fe-FA ( VITAMIN) tab Take 1 tablet by mouth. ACETAMINOPHEN (TYLENOL ORAL) Take by mouth as needed. prental multivitamin 27 mg iron- 800 mcg tablet Take 1 tablet by mouth once daily. (Pa (more content not included)... [facility] 01[facility]24[facility]2023 Instructions Elizabeth Juarez APRN.CAMRON - 01/24/2023 8:41 AM EDT Here are some links for wonderful Providers here in the community and surrounding areas. Do not hesitate to contact their offices, many are offering virtual visits during this time. [phone] - [place] Maternal Mental Health Hotline If you are in suicidal crisis, please call or text [phone]-TALK ( ) or visit the National Suicide Prevention Lifeline website. mchb.[facility].gov [facility] Psychology, Psychiatry, Counseling Connect with therapist/ can do virtual visits [phone] Referral to the [facility] To schedule an appointment, please call the Center for Behavioral Health Appointment Line: [phone] option 1 Counsel[facility] - [place] [address] [place] [address] [address] [facility] [place] [address] [facility] [address] [place], [place] [id number] [facility] [address] [place] [address] Ryan Jade MD [address] [place] [address] [facility] [address] [facility], [address] [place] [address] [facility] [address] [place] [address] [facility] [place] / [place] [phone]/ [phone] Zaina Busby [address] [facility] [phone] [facility] [place] / [place] [phone] Behavioral health services of [facility] [address] [place] [address]/ [place] [phone] MAR[facility] Family Therapy Workshops, telehealth and at home visits. [phone] Humanistic counseling center 20 locations [place], [place], [place], [place], [place], [place], [place], [facility], [place], [place], [place], [place], [place], [place], [facility], [place], [place] ,[facility], [place], [place],[facility], [facility], [place], [facility], [facility], [place] www.Alta Devices [phone] Psychotherapy resources outside of [facility] are listed below [facility] Web: https://www.NEUWAY [employer]arma / Support International Online Provider Directory https://Armorize Technologies/ [facility] https://Stealth Therapeutics / Partners [facility]al Health and Wellness Web: https://Accounting SaaS [place]/ Center for Effective Living Web: https://www.effectiveTiger Pistolliving.co m/ LifeStance Web: https://Adictiz.Validroid/location /state/[place]/ [facility] Web: https://www.InboundWriterunm [facility]. org/ [facility] Web: https://thecentersoh[place].org/ Recovery Resources Mental health and substance abuse help Web: https://www.Pyramid AnalyticssPay4later & RESOURCES Support International Direct peer support and connection to professional resources Non-Emergency Helpline Phone: / Text: [phone] Web: https://www..net/ Online Provider Directory: https://Armorize Technologies/ Online Support Meetings: https://www..net/get- help/zwu-kzpvaq-yblflea-meeting s/ TIRSO Baby and Vocal Music Teacher Services Web: https://Touchdown Technologies/ Vrvana Expert information on medication use during and Text: [phone] Web: https://comment.com/ NATIONAL REGISTRY FOR PSYCHIATRIC MEDICATIONS Currently studying the safety of antidepressants, ADHD medications and atypical antipsychotics taken during TO PARTICIPATE CALL TOLL-FREE: Web: https://womensmentalhealth.org/ research/pregnancyregistry/ Support Groups: [facility]- Follow on facebook Baby Bistro support group led by [facility] department [facility] Mamas - Support Group [facility].org The POEM support group [phone] Www.poemonline.org Follow on facebook - ZARI bravolaird chapter Online support meetings PSI https://www..net/get- help/xiy-pqpjfd-duhyryu-meeting s/ [facility] mommy and me virtual support group 11:30-1pm Support for mothers and new babies and toddlers [place] childbirth education: Childbirth @ccf.org or call [phone] CRISIS: CRISIS HOTLINE [phone], 911 or go to the nearest . [facility] [phone] / [facility] [phone] https://www.nyu langone health.org Crisis text line text the word HOME to [id number] [facility] [address] [facility] [address] www.Mitralign Amy Tyson clinical counseling [address] [address] www.CHiWAO Mobile App.Validroid [phone] Holding space psychotherapy Talia Parikh POWER DRIVEN BRUSH MAKER REGRINDER-S [address] [facility] www.Ceptaris Therapeutics [phone]/ [place] [phone] They all offer virtual. All work with trauma Support groups Online support meetings PSI https://www..net/get- help/bim-mwsnbd-exchaso-meeting s/ Here are the support groups they offer: Support of parents of 1 to 4 years old children POEM ( Outreach and Encouragement for Moms) offers free support for mothers experiencing depression, anxiety, and other mood and anxiety disorders. Masks are recommended but not required. No pre-registration required. Babies in arms welcome. meetings now take place on the and Friday of each month Location: [facility] [address] [place] [address] Room 122 (library room) 7-8:00 p.m. When you enter the [facility] parking lot off of [address] the entrance door closest to our meeting room is on the front of the building toward the right. For those who are more comfortable with a virtual platform, POEM offers online support group options several days of the week. To register for an online group or to find out more about POEM, website at: https://aohio.org/get-help/[facility] hospitaluzbalo-lddbva-faxztu/zari-servi verna/ offer a confidential helpline: private Facebook group is called ZARI - [place] Here are the groups they offer: Traumatic childbirth resources: Http://pattch.org/ https://www.aleksandarSimuForm felisa.Validroid/ Please select the following link to access the [facility] Your Guide to a Healthy . www.Ccf.org/healthypregnancygui de documented in this encounter [facility] 01-24-2023 History of Presen t illness Narrative OB point of care ultrasound was performed. See imaging tab for details. Elizabeth Juarez APRN.CNM INITIAL OB ASSESSMENT OB Provider: Elizabeth Juarez APRN.CNM HPI: Shira is a 32 year old White here to establish Obstetrical Care. Patient's last menstrual period was 11/25/2022 (approximate). from OB Dating Form. Cycles regular- LMP was the end of October was unplanned but accepted. Complaints: nausea without vomiting and vaginal spotting- Sometimes spotting bright red and brown . Denies any pain or cramping. OB History T3 L4 SAB0 IAB0 Ectopic0 Multiple0 Live Births4 Previous history: Prior : never History of 4th degree laceration: No History of shoulder dystocia: No History of Hypertensive disorders including pre-eclampsia, chronic hypertension or gestational hypertension: Yes Pre eclampsia - 1st preg, GHTN- last History of gestational diabetes: No Patient's Risk Screening for delivery: Delivered 1st at 35.6 days gestation-water broke, spontaneous labor MEDICAL/PSYCHOSOCIAL HISTORY: History of hemorrhage or bleeding concerns: No Thyroid Disease: No History of chronic hypertension: No History of pre-existing diabetes: No ABO/RH(D) Date Value Ref Range Status 02/25/2020 B POSITIVE Final BMI 26.57 kg/(m^2) History of abnormal pap: No Prior treatment for cervical dysplasia: none. History of STDs: None and HSV- last outbreak - unsure Tobacco use: No Caffeine use: Yes- black tea Drug use: No Alcohol use: No Multivitamin with Folic acid: Yes Religion or heritage: No Would refuse blood transfusion if medically necessary: No Are you currently employed? 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 Do you have any safety concerns or history of traumatic events that you would like to discuss with your provider: No How often does this describe you? I don't have enough money to pay my bills: Rarely Within the past 12 months, have you worried that your food would run out before you had money to buy more: Never In the past 12 months, has lack of reliable transportation kept you from going to medical appointments or work, or from keeping things needed for daily living: Never In the past 12 months, have you had any concerns about having a place to live, or about the condition or quality of your housing: Never Are there any cultural or spiritual needs we should be aware of: No Over the past two weeks have you felt down, depressed, or hopeless: Negative Over the past two weeks have you felt little interest or pleasure in doing things: Negative GENETIC SCREENING: Partner present: No Patient verbalized knowledge of partner family health history: Yes Do you or your partner have any personal or family history of defects not previously discussed: No Do you have history of a complicated by anomaly, genetic condition, or demise: No Marital Status: Partner: Name: Earl Lepe Age: 34 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 Gender: Male History of STDs: HSV PAST MEDICAL HISTORY Diagnosis Date Anemia Complication of anesthesia MEDICATION GIVEN TO SEDATE PT WITH TEAR DUCT SURGERY CAUSED ANAPHYLAXIS Congenital hip dysplasia wore brace Depression 11/25/2012 Herpes simplex virus (HSV) infection Migraines depression Preeclampsia Pyelonephritis 05/2022 Pyloric stenosis Stress headache 04/18/2014 VSD (ventricular septal defect) PAST SURGICAL HISTORY Procedure Laterality Date PARTIAL HYMENECTOMY PAST SURGICAL HISTORY OF surgery on tear ducts PYLOROMYOTOMY CUTTING PYLORIC MUSC pyloric stenosis as infant UNSPECIFIED ORAL SURGERY PROCEDURE, BY REPORT [place] teeth removed Current Outpatient Medications Medication Sig Dispense Refill Lactobacillus acidophilus (FLORAJEN ACIDOPHILUS) 20 billion cell cap Take by mouth. cholecalciferol, vitamin D3, (VITAMIN D3 ORAL) Take by mouth. ondansetron orally disintegrating (ZOFRAN ODT) 4 mg disintegrating tablet Take 1 tablet by mouth every 8 hours as needed for nausea/vomiting. 30 tablet 1 ondansetron orally disintegrating (ZOFRAN ODT) 4 mg disintegrating tablet Take 1 tablet by mouth every 8 hours as needed for nausea/vomiting. 30 tablet 0 topiramate (TOPAMAX) 50 mg tablet Take 1 tablet by mouth twice daily. 60 tablet 11 Sftntfza-Vd-Lsn-Fe-FA ( VITAMIN) tab Take 1 tablet by mouth. ACETAMINOPHEN (TYLENOL ORAL) Take by mouth as needed. prental multivitamin 27 mg iron- 800 mcg tablet Take 1 tablet by mouth once daily. (Patient not taking: Reported on 01/24/2023) No current facility-administered medications for this visit. Allergies As of Date: 01/24/2023 Allergen Noted Reaction CEPHALEXIN 05/27/2013 Vomiting LATEX 04/17/2010 Rash and Swelling OTHER 08/08/2004 Unknown ZOLOFT [SERTRALINE HCL] 04/24/2015 Mental Status Change Fully Assessed 01/24/2023 Does patient have penicillin allergy: No REVIEW OF SYSTEMS: GENERAL: Negative for: Fever or Chills and Positive for: Fatigue HEENT: Negative for: Headache, Impaired Vision, Ringing in Ears, Nosebleeds and history of migraines/ Taking Topamax as needed Juan Carlos- PCP NECK: Negative for: Swelling, Pain, Stiffness RESPIRATORY: Negative for: Cough, Shortness of breath, Wheezing GASTROINTESTINAL: Negative for: Heartburn, Constipation, Diarrhea, Blood in stool, Vomiting, Positive for: Constipation, and Positive for: Nausea and Vomiting N/V occasional emesis 2-3 x week MUSCULOSKELETAL: Negative for: Muscle or joint pain, stiffness, Joint swelling NEUROLOGIC/PSYCHIATRIC: Negative for: Weakness, Paralysis, Numbness, Tingling, Tremor, Anxiety, Depression, Memory loss SKIN: Negative for: Rash, Itching GENITOURINARY: Negative for: vaginal itching, vaginal discharge, hematuria or dysuria PHYSICAL EXAM: BP 114/76 Ht 5' 3 (1.60m) Wt 150 lb (68.0kg) LMP 11/25/2022 BMI 26.58 kg/(m^2). GENERAL: pleasant in no apparent distress DERMATOLOGY: Normal and without lesions NECK: Supple and full range of motion CHEST: Normal inspiratory effort BREAST: soft, non-tender, symmetric, no dominant mass, normal nipple-areolar complex, no lymphadenopathy, and no nipple discharge ABDOMEN: soft, non-tender, and no masses NEURO: alert and oriented x3,exam grossly non-focal PELVIS: External genitalia normal without lesions. Perineal body intact. No vaginal or cervical lesions. Cervix closed. Uterus small amount of dark brown/red blood present in vaginal vault and coming from cervix. No adnexal masses or tenderness. Clinical Pelvimetry: Pelvimetry clinically assessed as adequate Limited OB ultrasound exam: Gestational sac and yolk sac visualized, single intrauterine with no cardiac activity noted via color flow. CR length is 6.0 weeks gestation. LMP 8.4 weeks gestation by approximate LMP Parmjit- radioactivity technician to room for verification OB Risk Screening: Completed, positive findings include: Patient will be less than 17 or greater than 34 at the time of Delivery Patient answered 'Yes' to Partner with Herpes Patient answered 'Yes' they had a prior walsh between 20w and 36w6d. ASSESSMENT/PLAN: 1. with uncertain dates in first trimester - ICD9: V22.1, ICD10: Z34.91 (primary diagnosis) 2. Bleeding in early - ICD9: 640.90, ICD10: O20.9 3. Threatened - ICD9: 640.00, ICD10: O20.0 4. AMA (advanced maternal age) multigravida 35+, first trimester - ICD9: 659.63, ICD10: O09.521 5. 6 weeks gestation of - ICD9: V22.2, ICD10: Z3A.01 - Discussed ultrasound findings with patient. Threatened miscarriage vs. Early - HCG levels to be drawn - Bleeding precautions reviewed and when to notify provider - RTO - 1-2 weeks for follow up and/or sooner if needed - Support provided - Questions answered - Will follow up with patient via phone after HCG levels - Plan of care to be determined - B+ 1) Discussed nutrition, folic acid supplementation, dietary guidelines, exercise, smoking, alcohol, caffeine, and drug use. Discussed aneuploidy and carrier screening. Regarding aneuploidy screening, nuchal translucency/first trimester early anatomy ultrasound and NIPT were discussed. Regarding carrier screening, the myriad screen was discussed. The risks/benefits and limitations of NIPT/aneuploidy screening were reviewed including the potential for false negative and false positive results. We discussed the availability of professional-society guided carrier screening and reviewed the conditions screened and limitations of screening. The availability of genetic counseling was reviewed. Information on aneuploidy/carrier screening was provided. The patient chooses: Aneuploidy screening: declines screening 2) History of . Will order MFM consult for further discussion. History of hypertension: Gestational Hypertension Preeclampsia AMA: Aneuploidy screening reviewed Follow up in 1 weeks or sooner prn. Elizabeth Juarez APRN.CNM documented in this encounter [facility] documented as of this encounter (statuses as of 06/28/2023) [facility]04-24-2023 History of Past illness Narrative* Problem Noted Date Diagnosed Date Resolved Date Antepartum multigravida of a dvanced maternal age 0401/20/2023 06/27/2023 Overview: 01/20/2023atient will be 33 years old in March. Advanced maternal age discussed. Noninvasive and invasive testing options discussed. Patient declines any aneuploidy screening. TKRN Positive GBS test 07/28/2020 09/06/2020 BV (bacterial vaginosis) 06/16/202005/2020 Overview: June 16, 2020 Treated. 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 Britta Hatch MD Nausea and vomiting in 01/20/2020 09/06/2020 Overview: 01/20/2020Patient is complaining of nausea and occasional vomiting in . Dietary considerations discussed . Vitamin B6 recommended. Advised patient to call/come in if she is unable to keep any food or fluids down in a 24-hour periodTKRN Lice infestation 04/14/2019 01/26/2020 Insomnia secondary to situational depression 7 01/26/2020 Essential hypertension, benign 04/18/2014 04/14/2015 Stress headache 04/18/2014 09/06/2020 Hypertension in , p reeclampsia, severe, delivered 03/28/2014 04/14/2015 Hypokalemia 11/15/2013 04/14/2015 Hypersomnolence 11/12/2013 09/20/2015 Short interval between pregn ancies complicating , antepartum 08/17/201311/06 Overview: 08/17/2013She delivered her previous child December 10, 2012. TKRN First trimester bleeding 08/17/201304/2014 Overview: 08/17/2013Patient is unsure of the date of her last menstrual period. She had some brown spotting yesterday. She denies any spotting today. She denies any recent intercourse prior to the spotting. She denies any pain. She states that she is unconcerned regarding the spotting because she had this with a prior . Discussed the spotting in with Dr. Keerthi Chandler. Patient to call/come in if she develops any further bleeding, the development of pain, or PRN problems. An ultrasound was ordered for uncertain dates and first trimester spotting. 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 She states she has irregular menses every 28-56 days. She is 7 weeks 1 day by dates. She states she has felt movement for the past 3-[address] Britta Hatch ordered an ultrasound for uncertain dates. History of delivery, currently 05/14/2012 03/28/2014 Overview: 07/21/12 - counseled again extensively on progesterone, pt declines - KK 05/26 - needs baseline cervical length, counseled extensively on importance of progesterone injections, pt is considering this - KK 08/17/2013Patient delivered her first child at 35 weeks due to premature rupture of membranes. She was counseled regarding Progesterone her last , but declined. She delivered her last child at 37w5d. TKRN 01/20/2020Last 2 pregnancies delivered at term. TKRN History of pre-eclampsia in prior , currently 05/14/2012 06/27/2023 Overview: 01/20/2023 Patient has a history of preeclampsia with her third and gestational hypertension with her first and last . 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 Pt. born with congenital hip dysplasia. Pt's father has MTHFR mutation. Her paternal Uncles both have Antiphospholipid Antibody Syndrome. Pt states she had genetic testing in the past, which was negative for any bleeding disorders.The father of the baby's second cousin has autism. History of anesthesia complications 05/14/2012 03/28/2014 Overview: 05/14/2012Pt states she had an anaphylactic reaction to drugs that were given to sedate her during her eye surgery. She denies any knowledge of problems with sedation or anesthesia during any other surgeries. She is unsure of the name of the medication. Supervision of normal first 05/01/2010 11/14/2010 documented as of this encounter (statuses as of 07/01/2023) [facility] History of Past illness Narrative* Problem Noted Date Diagnosed Date Resolved Date Antepartum multigravida of a dvanced maternal age 0401/20/2023 06/27/2023 Overview: 3Patient will be 33 years old in March. Advanced maternal age discussed. Noninvasive and invasive testing options discussed. Patient declines any aneuploidy screening. TKRN Positive GBS test 07/28/2020 09/06/2020 BV (bacterial vaginosis) 06/16/202005/2020 Overview: June 16, 2020 Treated. 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 Britta Hatch MD Nausea and vomiting in 01/20/2020 09/06/2020 Overview: 01/20/2020Patient is complaining of nausea and occasional vomiting in . Dietary considerations discussed . Vitamin B6 recommended. Advised patient to call/come in if she is unable to keep any food or fluids down in a 24-hour periodTKRN Lice infestation 04/14/2019 01/26/2020 Insomnia secondary to situational depression 7 01/26/2020 Essential hypertension, benign 04/18/2014 04/14/2015 Stress headache 04/18/2014 09/06/2020 Hypertension in , p reeclampsia, severe, delivered 03/28/2014 04/14/2015 Hypokalemia 11/15/2013 04/14/2015 Hypersomnolence 11/12/2013 09/20/2015 Short interval between pregn ancies complicating , antepartum 08/17/201311/06 Overview: 08/17/2013She delivered her previous child December 10, 2012. TKRN First trimester bleeding 08/17/201304/2014 Overview: 08/17/2013Patient is unsure of the date of her last menstrual period. She had some brown spotting yesterday. She denies any spotting today. She denies any recent intercourse prior to the spotting. She denies any pain. She states that she is unconcerned regarding the spotting because she had this with a prior . Discussed the spotting in with Dr. Keerthi Chandler. Patient to call/come in if she develops any further bleeding, the development of pain, or PRN problems. An ultrasound was ordered for uncertain dates and first trimester spotting. 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 She states she has irregular menses every 28-56 days. She is 7 weeks 1 day by dates. She states she has felt movement for the past 3-[address] Britta Hatch ordered an ultrasound for uncertain dates. History of delivery, currently 05/14/2012 03/28/2014 Overview: 07/21/12 - counseled again extensively on progesterone, pt declines - KK 05/26 - needs baseline cervical length, counseled extensively on importance of progesterone injections, pt is considering this - KK 08/17/2013Patient delivered her first child at 35 weeks due to premature rupture of membranes. She was counseled regarding Progesterone her last , but declined. She delivered her last child at 37w5d. TKRN 01/20/2020Last 2 pregnancies delivered at term. TKRN History of pre-eclampsia in prior , currently 05/14/2012 06/27/2023 Overview: 01/20/2023 Patient has a history of preeclampsia with her third and gestational hypertension with her first and last . 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 Pt. born with congenital hip dysplasia. Pt's father has MTHFR mutation. Her paternal Uncles both have Antiphospholipid Antibody Syndrome. Pt states she had genetic testing in the past, which was negative for any bleeding disorders.The father of the baby's second cousin has autism. History of anesthesia complications 05/14/2012 03/28/2014 Overview: 05/14/2012Pt states she had an anaphylactic reaction to drugs that were given to sedate her during her eye surgery. She denies any knowledge of problems with sedation or anesthesia during any other surgeries. She is unsure of the name of the medication. Supervision of normal first 05/01/2010 11/14/2010 documented as of this encounter (statuses as of 08/02/2023) [facility]04-24-2023 History of Past illness Narrative* Problem Noted Date Diagnosed Date Resolved Date Antepartum multigravida of a dvanced maternal age 0401/20/2023 06/27/2023 Overview: 01/20/2023atient will be 33 years old in March. Advanced maternal age discussed. Noninvasive and invasive testing options discussed. Patient declines any aneuploidy screening. TKRN Positive GBS test 07/28/2020 09/06/2020 BV (bacterial vaginosis) 06/16/202005/2020 Overview: June 16, 2020 Treated. 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 Britta Hatch MD Nausea and vomiting in 01/20/2020 09/06/2020 Overview: 01/20/2020Patient is complaining of nausea and occasional vomiting in . Dietary considerations discussed . Vitamin B6 recommended. Advised patient to call/come in if she is unable to keep any food or fluids down in a 24-hour periodTKRN Lice infestation 04/14/2019 01/26/2020 Insomnia secondary to situational depression 7 01/26/2020 Essential hypertension, benign 04/18/2014 04/14/2015 Stress headache 04/18/2014 09/06/2020 Hypertension in , p reeclampsia, severe, delivered 03/28/2014 04/14/2015 Hypokalemia 11/15/2013 04/14/2015 Hypersomnolence 11/12/2013 09/20/2015 Short interval between pregn ancies complicating , antepartum 08/17/201311/06 Overview: 08/17/2013She delivered her previous child December 10, 2012. TKRN First trimester bleeding 08/17/201304/2014 Overview: 08/17/2013Patient is unsure of the date of her last menstrual period. She had some brown spotting yesterday. She denies any spotting today. She denies any recent intercourse prior to the spotting. She denies any pain. She states that she is unconcerned regarding the spotting because she had this with a prior . Discussed the spotting in with Dr. Keerthi Chandler. Patient to call/come in if she develops any further bleeding, the development of pain, or PRN problems. An ultrasound was ordered for uncertain dates and first trimester spotting. 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 She states she has irregular menses every 28-56 days. She is 7 weeks 1 day by dates. She states she has felt movement for the past 3-[address] Britta Hatch ordered an ultrasound for uncertain dates. History of delivery, currently 05/14/2012 03/28/2014 Overview: 07/21/12 - counseled again extensively on progesterone, pt declines - KK 05/26 - needs baseline cervical length, counseled extensively on importance of progesterone injections, pt is considering this - KK 08/17/2013Patient delivered her first child at 35 weeks due to premature rupture of membranes. She was counseled regarding Progesterone her last , but declined. She delivered her last child at 37w5d. TKRN 01/20/2020Last 2 pregnancies delivered at term. TKRN History of pre-eclampsia in prior , currently 05/14/2012 06/27/2023 Overview: 01/20/2023 Patient has a history of preeclampsia with her third and gestational hypertension with her first and last . 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 Pt. born with congenital hip dysplasia. Pt's father has MTHFR mutation. Her paternal Uncles both have Antiphospholipid Antibody Syndrome. Pt states she had genetic testing in the past, which was negative for any bleeding disorders.The father of the baby's second cousin has autism. History of anesthesia complications 05/14/2012 03/28/2014 Overview: 05/14/2012Pt states she had an anaphylactic reaction to drugs that were given to sedate her during her eye surgery. She denies any knowledge of problems with sedation or anesthesia during any other surgeries. She is unsure of the name of the medication. Supervision of normal first 05/01/2010 11/14/2010 documented as of this encounter (statuses as of 11/14/2023) [facility]04-24-2023 History of Past illness Narrative* Problem Noted Date Diagnosed Date Resolved Date Antepartum multigravida of a dvanced maternal age 0401/20/2023 06/27/2023 Overview: 01/20/2023atient will be 33 years old in March. Advanced maternal age discussed. Noninvasive and invasive testing options discussed. Patient declines any aneuploidy screening. TKRN Positive GBS test 07/28/2020 09/06/2020 BV (bacterial vaginosis) 06/16/202005/2020 Overview: June 16, 2020 Treated. 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 Britta Hatch MD Lice infestation 04/14/2019 01/26/2020 Insomnia secondary to situational depression 7 01/26/2020 Essential hypertension, benign 04/18/2014 04/14/2015 Stress headache 04/18/2014 09/06/2020 Hypertension in , p reeclampsia, severe, delivered 03/28/2014 04/14/2015 Hypokalemia 11/15/2013 04/14/2015 Hypersomnolence 11/12/2013 09/20/2015 Short interval between pregn ancies complicating , antepartum 08/17/201311/06 Overview: 08/17/2013Krissy delivered her previous child December 10, 2012. TKRN First trimester bleeding 08/17/201304/2014 Overview: 08/17/2013Patient is unsure of the date of her last menstrual period. She had some brown spotting yesterday. She denies any spotting today. She denies any recent intercourse prior to the spotting. She denies any pain. She states that she is unconcerned regarding the spotting because she had this with a prior . Discussed the spotting in with Dr. Keerthi Chandler. Patient to call/come in if she develops any further bleeding, the development of pain, or PRN problems. An ultrasound was ordered for uncertain dates and first trimester spotting. 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 She states she has irregular menses every 28-56 days. She is 7 weeks 1 day by dates. She states she has felt movement for the past 3-[address] Britta Hatch ordered an ultrasound for uncertain dates. History of delivery, currently 05/14/2012 03/28/2014 Overview: 07/21/12 - counseled again extensively on progesterone, pt declines - KK 05/26 - needs baseline cervical length, counseled extensively on importance of progesterone injections, pt is considering this - KK 08/17/2013Patient delivered her first child at 35 weeks due to premature rupture of membranes. She was counseled regarding Progesterone her last , but declined. She delivered her last child at 37w5d. TKRN 01/20/2020Last 2 pregnancies delivered at term. TKRN History of anesthesia complications 05/14/2012 03/28/2014 Overview: 05/14/2012Pt states she had an anaphylactic reaction to drugs that were given to sedate her during her eye surgery. She denies any knowledge of problems with sedation or anesthesia during any other surgeries. She is unsure of the name of the medication. Supervision of normal first 05/01/2010 11/14/2010 documented as of this encounter (statuses as of 11/17/2023) [facility]04-24-2023 History of Past illness Narrative* Problem Noted Date Diagnosed Date Resolved Date Antepartum multigravida of a dvanced maternal age 0401/20/2023 06/27/2023 Overview: 3Patient will be 33 years old in March. Advanced maternal age discussed. Noninvasive and invasive testing options discussed. Patient declines any aneuploidy screening. TKRN Positive GBS test 07/28/2020 09/06/2020 BV (bacterial vaginosis) 06/16/202005/2020 Overview: June 16, 2020 Treated. 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 Britta Hatch MD Lice infestation 04/14/2019 01/26/2020 Insomnia secondary to situational depression 7 01/26/2020 Essential hypertension, benign 04/18/2014 04/14/2015 Stress headache 04/18/2014 09/06/2020 Hypertension in , p reeclampsia, severe, delivered 03/28/2014 04/14/2015 Hypokalemia 11/15/2013 04/14/2015 Hypersomnolence 11/12/2013 09/20/2015 Short interval between pregn ancies complicating , antepartum 08/17/201311/06 Overview: 08/17/2013She delivered her previous child December 10, 2012. TKRN First trimester bleeding 08/17/201304/2014 Overview: 08/17/2013Patient is unsure of the date of her last menstrual period. She had some brown spotting yesterday. She denies any spotting today. She denies any recent intercourse prior to the spotting. She denies any pain. She states that she is unconcerned regarding the spotting because she had this with a prior . Discussed the spotting in with Dr. Keerthi Chandler. Patient to call/come in if she develops any further bleeding, the development of pain, or PRN problems. An ultrasound was ordered for uncertain dates and first trimester spotting. 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 She states she has irregular menses every 28-56 days. She is 7 weeks 1 day by dates. She states she has felt movement for the past 3-[address] Britta Hatch ordered an ultrasound for uncertain dates. History of delivery, currently 05/14/2012 03/28/2014 Overview: 07/21/12 - counseled again extensively on progesterone, pt declines - KK 05/26 - needs baseline cervical length, counseled extensively on importance of progesterone injections, pt is considering this - KK 08/17/2013Patient delivered her first child at 35 weeks due to premature rupture of membranes. She was counseled regarding Progesterone her last , but declined. She delivered her last child at 37w5d. TKRN 01/20/2020Last 2 pregnancies delivered at term. TKRN History of anesthesia complications 05/14/2012 03/28/2014 Overview: 05/14/2012Pt states she had an anaphylactic reaction to drugs that were given to sedate her during her eye surgery. She denies any knowledge of problems with sedation or anesthesia during any other surgeries. She is unsure of the name of the medication. Supervision of normal first 05/01/2010 11/14/2010 documented as of this encounter (statuses as of 11/17/2023) [facility]04-24-2023 History of Past illness Narrative* Problem Noted Date Diagnosed Date Resolved Date Antepartum multigravida of a dvanced maternal age 0401/20/2023 06/27/2023 Overview: 3Patient will be 33 years old in March. Advanced maternal age discussed. Noninvasive and invasive testing options discussed. Patient declines any aneuploidy screening. TKRN Positive GBS test 07/28/2020 09/06/2020 BV (bacterial vaginosis) 06/16/202005/2020 Overview: June 16, 2020 Treated. 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 Britta Hatch MD Lice infestation 04/14/2019 01/26/2020 Insomnia secondary to situational depression 7 01/26/2020 Essential hypertension, benign 04/18/2014 04/14/2015 Stress headache 04/18/2014 09/06/2020 Hypertension in , p reeclampsia, severe, delivered 03/28/2014 04/14/2015 Hypokalemia 11/15/2013 04/14/2015 Hypersomnolence 11/12/2013 09/20/2015 Short interval between pregn ancies complicating , antepartum 08/17/201311/06 Overview: 08/17/2013She delivered her previous child December 10, 2012. TKRN First trimester bleeding 08/17/201304/2014 Overview: 08/17/2013Patient is unsure of the date of her last menstrual period. She had some brown spotting yesterday. She denies any spotting today. She denies any recent intercourse prior to the spotting. She denies any pain. She states that she is unconcerned regarding the spotting because she had this with a prior . Discussed the spotting in with Dr. Keerthi Chandler. Patient to call/come in if she develops any further bleeding, the development of pain, or PRN problems. An ultrasound was ordered for uncertain dates and first trimester spotting. 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 She states she has irregular menses every 28-56 days. She is 7 weeks 1 day by dates. She states she has felt movement for the past 3-[address] Britta Hatch ordered an ultrasound for uncertain dates. History of delivery, currently 05/14/2012 03/28/2014 Overview: 07/21/12 - counseled again extensively on progesterone, pt declines - KK 05/26 - needs baseline cervical length, counseled extensively on importance of progesterone injections, pt is considering this - KK 08/17/2013Patient delivered her first child at 35 weeks due to premature rupture of membranes. She was counseled regarding Progesterone her last , but declined. She delivered her last child at 37w5d. TKRN 01/20/2020Last 2 pregnancies delivered at term. TKRN History of anesthesia complications 05/14/2012 03/28/2014 Overview: 05/14/2012Pt states she had an anaphylactic reaction to drugs that were given to sedate her during her eye surgery. She denies any knowledge of problems with sedation or anesthesia during any other surgeries. She is unsure of the name of the medication. Supervision of normal first 05/01/2010 11/14/2010 documented as of this encounter (statuses as of 11/18/2023) [facility]04-24-2023 History of Past illness Narrative* Problem Noted Date Diagnosed Date Resolved Date Antepartum multigravida of a dvanced maternal age 0401/20/2023 06/27/2023 Overview: 01/20/2023atient will be 33 years old in March. Advanced maternal age discussed. Noninvasive and invasive testing options discussed. Patient declines any aneuploidy screening. TKRN Positive GBS test 07/28/2020 09/06/2020 BV (bacterial vaginosis) 06/16/202005/2020 Overview: June 16, 2020 Treated. rBitta Hatch MD GBS carrier 01/28/2020 10/02/2020 Overview: January 28, 2020 GBS in urine, not enough to treat but will need prophylaxis in . Britta Hatch MD Lice infestation 04/14/2019 01/26/2020 Insomnia secondary to situational depression 7 01/26/2020 Essential hypertension, benign 04/18/2014 04/14/2015 Stress headache 04/18/2014 09/06/2020 Hypertension in , p reeclampsia, severe, delivered 03/28/2014 04/14/2015 Hypokalemia 11/15/2013 04/14/2015 Hypersomnolence 11/12/2013 09/20/2015 Short interval between pregn ancies complicating , antepartum 08/17/201311/06 Overview: 08/17/2013Deborahe delivered her previous child December 10, 2012. TKRN First trimester bleeding 08/17/201304/2014 Overview: 08/17/2013Patient is unsure of the date of her last menstrual period. She had some brown spotting yesterday. She denies any spotting today. She denies any recent intercourse prior to the spotting. She denies any pain. She states that she is unconcerned regarding the spotting because she had this with a prior . Discussed the spotting in with Dr. Keerthi Chandler. Patient to call/come in if she develops any further bleeding, the development of pain, or PRN problems. An ultrasound was ordered for uncertain dates and first trimester spotting. 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 She states she has irregular menses every 28-56 days. She is 7 weeks 1 day by dates. She states she has felt movement for the past 3-[address] Britta Hatch ordered an ultrasound for uncertain dates. History of delivery, currently 05/14/2012 03/28/2014 Overview: 07/21/12 - counseled again extensively on progesterone, pt declines - KK 05/26 - needs baseline cervical length, counseled extensively on importance of progesterone injections, pt is considering this - KK 08/17/2013Patient delivered her first child at 35 weeks due to premature rupture of membranes. She was counseled regarding Progesterone her last , but declined. She delivered her last child at 37w5d. TKRN 01/20/2020Last 2 pregnancies delivered at term. TKRN History of anesthesia complications 05/14/2012 03/28/2014 Overview: 05/14/2012Pt states she had an anaphylactic reaction to drugs that were given to sedate her during her eye surgery. She denies any knowledge of problems with sedation or anesthesia during any other surgeries. She is unsure of the name of the medication. Supervision of normal first 05/01/2010 11/14/2010 documented as of this encounter (statuses as of 11/19/2023) [facility]04-24-2023 NoteHNO ID: [id number] Author: Winsome Cardenas RN Service: ? Author Type: ? Type: Progress Notes Filed: 01/20/2023 12:34 PM Note Text: # 1 - Date: [birth year], Sex: Female, Weight: 5 lb 4 oz (2.381 kg), GA: 35w0d, Delivery: VAGINAL , Apgar1: 8, Apgar5: 9, Living: Living, Comments: PPROM, Severe PIH,Pit aug. # 2 - Date: 12/10/12, Sex: Male, Weight: 7 lb 3 oz (3.26 kg), GA: 37w5d, Delivery: Vaginal, Spontaneous, Apgar1: 8, Apgar5: 9, Living: Living, Comments: Spontaneous labor, SROM, GestHTN, 1st degree periurethral laceration, EBL 200cc # 3 - Date: 03/18/14, Sex: Female, Weight: 6 lb 9 oz (2.977 kg), GA: 37w0d, Delivery: Vaginal, Spontaneous, Apgar1: 9, Apgar5: 9, Living: Living, Comments: Pre-eclampsia, pitocin indution, AROM, no laceration, fast labor, pushed 10min, EBL 300cc # 4 - Date: 08/31/20, Sex: Female, Weight: 8 lb 9 oz (3.884 kg), GA: 39w1d, Delivery: Vaginal, Spontaneous, Apgar1: 8, Apgar5: 9, Living: Living, Comments: Induction for gestational HTN, EBL 200 mL, perineum intact, loose nuchal cord x1 # 5 - Date: None, Sex: None, Weight: None, GA: None, Delivery: None, Apgar1: None, Apgar5: None, Living: None, [facility] Notes* Quick Notes - Winsome Cardenas RN - 01/20/2023 9:19 AM EDT DISTANCE HEALTH VISIT This Team Access Model visit is a phone encounter. It required patient-provider interaction for themedical decision making as documented below. Patient will be 33 years old in March. Advanced maternal age discussed. Noninvasive and invasive testing options discussed. Patient declines any aneuploidy screening. Patient has a history of depression since age 13. It was undiagnosed but she fel t like after her brother she went into a depression. She states she had depression with her first delivery. She has been off medication for 3 years. Believes she is doing well off medications. She denies ever having any suicidal thoughts or thoughts of hurting others. Patient has a history of genital herpes. I have discussed with her the importance of reporting any outbreaks during . Patient has a history of preeclampsia with her third and gestational hypertension with her first and last . Patient has a history of VSD. She has seen Dr. Brown in the past and most recently Dr. Birch on March 19, 2022. Last echo done 2019. She has a follow-up appointment with Dr. Barton on April 08, 2023. [facility] to [facility] for [facility].. Patient was born with congenital hip dysplasia and pyloric stenosis. Patient's father with positive MTHFR, 2 paternal uncles with antiphospholipid antibody syndrome Patient was hospitalized for pyelonephritis May 2022. Patient declines aneuploidy screening and genetic carrier screening testing.TKRN [facility] History of Present illness Narrative* Winsome Cardenas RN - 01/20/2023 9:18 AM EDT # 1 - Date: [birth year], Sex: Female, Weight: 5 lb 4 oz (2.381 kg), GA: 35w0d, Delivery: VAGINAL , Apgar1: 8, Apgar5: 9, Living: Living, Comments: PPROM, Severe PIH,Pit aug. # 2 - Date: 12/10/12, Sex: Male, Weight: 7 lb 3 oz (3.26 kg), GA: 37w5d, Delivery: Vaginal, Spontaneous, Apgar1: 8, Apgar5: 9, Living: Living, Comments: Spontaneous labor, SROM, GestHTN, 1st degree periurethral laceration, EBL 200cc # 3 - Date: 03/18/14, Sex: Female, Weight: 6 lb 9 oz (2.977 kg), GA: 37w0d, Delivery: Vaginal, Spontaneous, Apgar1: 9, Apgar5: 9, Living: Living, Comments: Pre-eclampsia, pitocin indution, AROM, no laceration, fast labor, pushed 10min, EBL 300cc # 4 - Date: 08/31/20, Sex: Female, Weight: 8 lb 9 oz (3.884 kg), GA: 39w1d, Delivery: Vaginal, Spontaneous, Apgar1: 8, Apgar5: 9, Living: Living, Comments: Induction for gestational HTN, EBL 200 mL, perineum intact, loose nuchal cord x1 # 5 - Date: None, Sex: None, Weight: None, GA: None, Delivery: None, Apgar1: None, Apgar5: None, Living: None, Comments: None documented in this encounterC[facility]04-22-2023 NoteHNO ID: [id number] Author: Mouna Weinstein APRN.CHROME TANNER Service: ? Author Type: Nurse Practitioner Type: Progress Notes Filed: 01/18/2023 12:18 PM Note Text: January 18, 2023 Subjective: Shira Lepe is a 32 year old female who presents today for follow up of her medical problems. The patient developed N/V and diarrhea around midnight last night. She is starting to get water and Gatorade to stay down. She gets hot and then chills. Has had about four episodes of diarrhea. She is six weeks . She has sick kids at home. Current Outpatient Medications Medication Sig ondansetron orally disintegrating (ZOFRAN ODT) 4 mg disintegrating tablet Take 4 mg by mouth every 8 hours as needed for nausea/vomiting. topiramate (TOPAMAX) 50 mg tablet Take 1 tablet by mouth twice daily. Exifnefv-Aq-Doy-Fe-FA ( VITAMIN) tab Take 1 tablet by mouth. ACETAMINOPHEN (TYLENOL ORAL) Take by mouth as needed. omeprazole (PRILOSEC) 20 mg capsule Take 1 capsule by mouth daily before breakfast. 1/2 hr before meal. (Patient not taking: Reported on 01/18/2023) acyclovir (ZOVIRAX) 400 mg tablet Take 1 tablet by mouth as directed. 5 times a day for 5 days as needed for an outbreak (Patient not taking: Reported on 01/18/2023) No current facility-administered medications for this visit. PAST MEDICAL HISTORY Diagnosis Date Complication of anesthesia MEDICATION GIVEN TO SEDATE PT WITH TEAR DUCT SURGERY CAUSED ANAPHYLAXIS Congenital hip dysplasia wore brace Depression 11/25/2012 Herpes simplex virus (HSV) infection Migraines depression Preeclampsia Pyloric stenosis Stress headache 04/18/2014 VSD (ventricular septal defect) PAST SURGICAL HISTORY Procedure Laterality Date PARTIAL HYMENECTOMY PAST SURGICAL HISTORY OF surgery on tear ducts PYLOROMYOTOMY CUTTING PYLORIC MUSC pyloric stenosis as UNSPECIFIED ORAL SURGERY PROCEDURE, BY REPORT [place] teeth removed ALLERGIES: Cephalexin, Latex, Other, and Zoloft [Sertraline Hcl] REVIEW OF SYSTEMS GENERAL: No weight loss, malaise or fevers. RESPIRATORY: Negative for cough, hemoptysis, wheezing, COPD, dyspnea or shortness of breath CARDIOVASCULAR: Negative for chest pain, leg swelling, hypertension, CHF or palpitations GI: SEE HPI All others reviewed and negative BP 110/72 Pulse 93 Temp 36.8 ?C (98.2 ?F) (Temporal) Resp 20 Wt 70.4 kg (155 lb 1.6 oz) LMP 11/28/2019 (LMP Unknown) SpO2 98% BMI 27.47 kg/m? Body mass index is 27.47 kg/m?. Last 3 Encounter BP Readings: Date: BP: 01/18/2023 110/72 07/11/2022 124/68 07/04/2022 112/62 PHYSICAL EXAMINATION: Well-developed, well nourished female in no acute distress HEART: Regular rhythm and normal rate, no murmurs, gallops, or clicks CHEST: Clear to auscultation, equal breath sounds bilaterally, no rales, rhonchi or wheezes ASSESSMENT: ASSESSMENT/PLAN: 1. Nausea and vomiting, unspecified vomiting type - ICD9: 787.01, ICD10: R11.2 (primary diagnosis) Stressed hydration and BRAT diet - ONDANSETRON 4 MG TAB, RAPID DISSOLVE (ZOFRAN ODT) GO-PACK 2. Viral gastroenteritis - ICD9: 008.8, ICD10: A08.4 Supportive care. Mouna Weinstein APRN.CNP Follow up: fu 3-5 days if no improvement. [facility] History of Present illness Narrative* Mouna Weinstein APRN.KAE - 01/18/2023 12:09 PM EDT January 18, 2023 Subjective: Shira Lepe is a 32 year old female who presents today for follow up of her medical problems. The patient developed N/V and diarrhea around midnight last night. She is starting to get water andGatorade to stay down. She gets hot and then chills. Has had about four episodes of diarrhea. She is six weeks . She has sick kids at home. Current Outpatient Medications Medication Sig ondansetron orally disintegrating (ZOFRAN ODT) 4 mg disintegrating tablet Take 4 mg by mouth every 8 hours as needed for nausea/vomiting. topiramate (TOPAMAX) 50 mg tablet Take 1 tablet by mouth twice daily. Sveevhth-Ob-Nqe-Fe-FA ( VITAMIN) tab Take 1 tablet by mouth. ACETAMINOPHEN (TYLENOL ORAL) Take by mouth as needed. omeprazole (PRILOSEC) 20 mg capsule Take 1 capsule by mouth daily before breakfast. 1/2 hr before meal. (Patient not taking: Reported on 01/18/2023) acyclovir (ZOVIRAX) 400 mg tablet Take 1 tablet by mouth as directed. 5 times a day for 5 days as needed for an outbreak (Patient not taking: Reported on 01/18/2023) No current facility-administered medications for this visit. PAST MEDICAL HISTORY Diagnosis Date Complication of anesthesia MEDICATION GIVEN TO SEDATE PT WITH TEAR DUCT SURGERY CAUSED ANAPHYLAXIS Congenital hip dysplasia wore brace Depression 11/25/2012 Herpes simplex virus (HSV) infection Migraines depression Preeclampsia Pyloric stenosis Stress headache 04/18/2014 VSD (ventricular septal defect) PAST SURGICAL HISTORY Procedure Laterality Date PARTIAL HYMENECTOMY PAST SURGICAL HISTORY OF surgery on tear ducts PYLOROMYOTOMY CUTTING PYLORIC MUSC pyloric stenosis as infant UNSPECIFIED ORAL SURGERY PROCEDURE, BY REPORT [place] teeth removed ALLERGIES: Cephalexin, Latex, Other, and Zoloft [Sertraline Hcl] REVIEW OF SYSTEMS GENERAL: No weight loss, malaise or fevers. RESPIRATORY: Negative for cough, hemoptysis, wheezing, COPD, dyspnea or shortness of breath CARDIOVASCULAR: Negative for chest pain, leg swelling, hypertension, CHF or palpitations GI: SEE HPI All others reviewed and negative BP 110/72 Pulse 93 Temp 36.8 C (98.2 F) (Temporal) Resp 20 Wt 70.4 kg (155 lb 1.6 oz) LMP11/28/2019 (LMP Unknown) SpO2 98% BMI 27.47 kg/m Body mass index is 27.47 kg/m . Last 3 Encounter BP Readings: Date: BP: 01/18/2023 110/72 07/11/2022 124/68 07/04/2022 112/62 PHYSICAL EXAMINATION: Well-developed, well nourished female in no acute distress HEART: Regular rhythm and normal rate, no murmurs, gallops, or clicks CHEST: Clear to auscultation, equal breath sounds bilaterally, no rales, rhonchi or wheezes ASSESSMENT: ASSESSMENT/PLAN: 1. Nausea and vomiting, unspecified vomiting type - ICD9: 787.01, ICD10: R11.2 (primary diagnosis) Stressed hydration and BRAT diet - ONDANSETRON 4 MG TAB, RAPID DISSOLVE (ZOFRAN ODT) GO-PACK 2. Viral gastroenteritis - ICD9: 008.8, ICD10: A08.4 Supportive care. Mouna Weinstein APRN.CNP Follow up: fu 3-5 days if no improvement. Mouna Weinstein APRN.KAE documented in this encounterC[facility]04-22-2023 Miscellaneous Notes* Telephone Encounter - Deann Khan RN - 01/18/2023 10:04 AM EDT Pt called in asking about nausea medication. Pt was told to go to the ER because if she needed fluids [facility] would be able to give her IV fluids. Pt wanted to know if Armaan was in [facility], I told her she would need to be seen to get medication. She states she is out of town in [place]. She is going to go to [facility] up there. She states he daughter has the same thing. I let Pt know that [facility] can't give IV fluids. * Telephone Encounter - Odessa Dior RN - 01/18/2023 8:00 AM EDT Reason for call: Nausea, vomiting (patient requesting prescription for anti nausea medication) Preferred pharmacy: [facility] [address] [place] [address] [address] - [phone] Outcome: Home care, care advice given, patient verbalized understanding. Advised will forward medication request to office (open 8-12 today), encouraged to call office when open to follow-up Reason for Disposition MILD vomiting with diarrhea Answer Assessment - Initial Assessment Questions 1. VOMITING SEVERITY: 6 episodes overnight 2. ONSET: last night 3. FLUIDS: Vomited stomach contents, Patient states, I have nothing left in me. Taking small sipsof water. 4. ABDOMINAL PAIN: had 1 episode of abdominal cramping relieved with diarrhea 5. DIARRHEA: 1-2 episodes 6. CONTACTS: Daughter with viral gastroenteritis 7. CAUSE: viral and 8. HYDRATION STATUS:+ urination, able to keep down small amounts of fluids 9. OTHER SYMPTOMS: nausea, vomting, diarrhea 10. : 6 weeks Protocols used: [id number] documented in this encounterCrystal Clinic [facility] Center10-31-2022 Miscellaneous Notes* Telephone Encounter - Tanesha Neff Ma - 07/29/2022 1:59 PM EDT Letter mailed to pt home of results. Tanesha Neff MA * Telephone Encounter - Tanesha Neff Ma - 07/29/2022 1:58 PM EDT ----- Message from Manuel Rangel MD sent at 07/29/2022 12:37 PM EDT ----- Let her know labs are better. Manuel Rangel MD documented in this encounterCrystal Clinic [facility] Center10-28-2022 Miscellaneous Notes* Telephone Encounter - Lara Blevins RN - 07/26/2022 9:08 AM EDT Phoned patient and given provider's message below. Patient reports she is feeling better today. Shethinks the nausea may be coming from taking her medications on an empty stomach. Today she ate foodfirst, and not having nausea. Also takes the nausea medication if needed and it helps. Reports she is not taking omeprazole b/c she is suppose to take it a half hour before eating and she never knowswhen she is going to eat. Reports she has no UTI s/s. Completed bactrim 1-2 weeks ago. No fever. Vomited a small amount of phlegm yesterday but thinks it is from allergies. Reports she is drinking a lot of fluids. Patient will continue to nurse any symptoms and if no improvement by next week, will c all back to schedule appt. * Telephone Encounter - Lara Tabor PA-C - 07/26/2022 6:31 AM EDT Bactrim often causes nausea and stomach upset. Are UTI sx clearing? Any fever? I assume no vomiting from message. Thanks, Julio Tabor PA-C * Telephone Encounter - Donna Barrios RN - 07/25/2022 12:33 PM EDT Patient calls back and states that she is still getting nauseous. Patient states that she continuesto feel fatigued. Patient asking what could be causing this? Please review and advise, Donna Barrios RN documented in this encounterCrystal Clinic [facility] Center10-21-2022 Miscellaneous Notes* Telephone Encounter - Tawana Conti LPN - 07/19/2022 4:49 PM EDT Talked to patient she did say that lab had trouble getting her blood told her this is probably the reason for hemolyzed specimen. They did not get much blood but told her they would send in it to seeif could be processed. She is going to try [facility] next week. She is still hydrating. Startingto feel better finally. * Telephone Encounter - Manuel Rangel MD - 07/19/2022 4:15 PM EDT See below. Apparently. Lab did not run it. * Telephone Encounter - Manuel Rangel MD - 07/19/2022 4:15 PM EDT ----- Message from Kim Sams sent at 07/19/2022 2:28 PM EDT ----- Regarding: Test Cancelled Please place a new order for Basic Metabolic Panel (BMP), if clinically indicated. This notification serves to inform you that a test(s) have been canceled for reason(s) denoted on the result report within the Epic chart. Sample was hemolyzed. Thank you. If any questions, please contact Laboratory Client Services. DO NOT REPLY TO THIS MESSAGE. documented in this encounterCrystal Clinic Orth[facility] Center10-13-2022 Miscellaneous Notes* Telephone Encounter - Tawana Conti LPN - 07/11/2022 4:34 PM EDT Here for visit to discuss. * Telephone Encounter - Tawana Conti LPN - 07/11/2022 11:22 AM EDT Has appt this afternoon 07/11/22 at 4:40. * Telephone Encounter - Wendi Hatch LPN - 07/09/2022 12:38 PM EDT LEFT MESSAGE FOR PATIENT TO CALL OFFICE. * Telephone Encounter - Manuel Rangel MD - 07/09/2022 11:19 AM EDT Her white count is ok However, her kidney function is worsening. Is she drinking adequate fluids Any current abd pain, vomiting or diarrhea. How is her urine. If s/s of dehydration to ER, may need IV fluids. If not need to see one of again soon. documented in this encounterCrystal Clinic [facility] Center10-08-2022 Miscellaneous Notes* Telephone Encounter - Debi Jasso - 07/06/2022 11:15 AM EDT Patient informed and verbalized understanding. Debi Jasso * Telephone Encounter - Manuel Rangel MD - 07/06/2022 8:05 AM EDT Urine culture is not showing new uti. Although has been on antibioitics which may mask it. Finish what she is on and keep follow up. Call if worsens. documented in this encounterCrystal Clinic Orthopedic Center10-07-2022 Miscellaneous Notes* Telephone Encounter - Edelmira Brooks RN - 07/05/2022 8:10 AM EDT Patient contacted and given provider's message below. Edelmira Brooks RN * Telephone Encounter - Manuel Rangel MD - 07/05/2022 7:57 AM EDT Cbc was drawn but cannot be run. Needs redone. Her electolytes are better but still appears a little dry. Push fluids over weekend and recheck bmp and cbc friday documented in this encounterCrystal Clinic [facility] Center10-06-2022 History of Present illness Narrative* Manuel Rangel MD - 07/04/2022 1:38 PM EDT Patient presents with: Hospital F/U HPI: Patient presents today for office visit for HOSPITAL/ER FOLLOW UP: Reason for visit: dysuria Which facility: [facility] Date of visit: 06/26/22 Discharge: 9/30/22 Diagnosis: pyelonephritis, hypokalemia, intractable nausea/vomiting Testing done: culture grew klebsiella pneumoniae Treatment given: sent home with levaquin(finished today), ondansetron(helps when she can take it intime) Current symptoms: frequent urination, feels full from drinking so much, extreme fatigue No fever or chills. No back pain. Keeping fluids down. No headache. Intermittent neck discomfort in the back of the neck. No neuro issues. Mild cough and congestion. Covid was negative. Does have fall allergies. Is somewhat better than she did but not completely See CT: Left nephrolithiasis and renal cortical scarring. Mild left perinephric fat stranding but no significant hydronephrosis and no ureteral stone identified. Possible recently passed left ureteral stone and/or left pyelonephritis, correlate clinically. Reviewed urine culture: Klebsiella pneumoniae sp pneum [place] Count >100,000 Klebsiella pneumoniae sp pneum: REACTION Ampicillin Islt DANA >=32 R Ampicillin+Sulbac Islt DANA 4 S ceFAZolin Islt DANA <=4 S Cefepime Islt DANA <=0.12 S cefTRIAXone Islt DANA <=0.25 S Ciprofloxacin Islt DANA <=0.25 S Ertapenem Islt DANA <=0.12 S B-Lactamase Extended Susc Islt NEG Gentamicin Islt DANA <=1 S Imipenem Islt DANA <=0.25 S levoFLOXacin Islt DANA <=0.12 S Nitrofurantoin Islt DANA <=16 S Pip+Tazo Islt DANA <=4 S Tobramycin Islt DANA <=1 S TMP SMX Islt DANA <=20 MEDICATIONS: Current Outpatient Medications Medication Sig topiramate (TOPAMAX) 50 mg tablet Take 1 tablet by mouth twice daily. benzonatate (TESSALON PERLE) 100 mg capsule Take 2 capsules by mouth three times daily as needed. (Patient not taking: Reported on 01/04/2022 ) triamcinolone acetonide (NASACORT AQ) 55 mcg nasal inhaler Use 2 Sprays in the nose once daily. (Patient not taking: Reported on 01/04/2022 ) acyclovir (ZOVIRAX) 400 mg tablet Take 1 tablet by mouth as directed. 5 times a day for 5 days as needed for an outbreak Wcpjxcsr-Zv-Txx-Fe-FA ( VITAMIN) tab Take 1 tablet by mouth. (Patient not taking: Reported on 01/04/2022 ) ACETAMINOPHEN (TYLENOL ORAL) Take by mouth as needed. No current facility-administered medications for this visit. ALLERGIES: ALLERGIES Allergen Reactions Cephalexin Vomiting Fever,confusion,blisters,N&V Latex Rash, Swelling Other Unknown 3 medications given for sedation Pediatric Cocktail Zoloft [Sertraline * Mental Status Change excessive sedation PAST MEDICAL HISTORY Diagnosis Date Complication of anesthesia MEDICATION GIVEN TO SEDATE PT WITH TEAR DUCT SURGERY CAUSED ANAPHYLAXIS Congenital hip dysplasia wore brace Depression 11/25/2012 Herpes simplex virus (HSV) infection Migraines depression Preeclampsia Pyloric stenosis Stress headache 04/18/2014 VSD (ventricular septal defect) PAST SURGICAL HISTORY Procedure Laterality Date PARTIAL HYMENECTOMY PAST SURGICAL HISTORY OF surgery on tear ducts PYLOROMYOTOMY CUTTING PYLORIC MUSC pyloric stenosis as infant UNSPECIFIED ORAL SURGERY PROCEDURE, BY REPORT [place] teeth removed FAMILY HISTORY Problem Relation Age of Onset Arthritis Mother Heart Father Blood Disease Father clotting disease caused clotts Thyroid Father other (blood clotting disorder) Father MTHFR MUTATION Heart Maternal Grandmother Alcohol/Drug Maternal Grandmother Coronary Artery Disease Maternal Grandmother Alcohol/Drug Paternal Grandmother Coronary Artery Disease Paternal Grandfather Prostate Cancer Paternal Grandfather Alcohol/Drug Paternal Grandfather No Known Problems Daughter No Known Problems Son No Known Problems Daughter Blood Disease Paternal Uncle ANTITHOSPOLIPID ANTIBODY SYNDROME Blood Disease Paternal Uncle Heart Maternal Uncle Heart Maternal Uncle Cancer Maternal Uncle stomach cancer Social History Tobacco Use Smoking status: Never Smokeless tobacco: Never Vaping Use Vaping Use: Never used Substance Use Topics Alcohol use: Not Currently Comment: Rarely,NOT WHILE Drug use: No Reviewed current medications, allergies, past medical history, surgical history, family history andsocial history today. REVIEW OF SYSTEMS GI: Negative for blood in stools or black stools, change in bowel habit, does have occasional heartburn All other reviewed and negative other than HPI. HEALTH MAINTENANCE: Reviewed health maintenance issues today and recommended the following in detail. COVID-19 VACCINE(1) Never done INFLUENZA(1) Never done VITALS: BP 112/62 Pulse 84 Wt 66.2 kg (146 lb) LMP 11/28/2019 (LMP Unknown) BMI 25.86 kg/m Last 4 Encounter Wt Readings: Date: Wt: 06/26/2022 68.1 kg (150 lb 3.2 oz) 01/04/2022 67.1 kg (148 lb) 09/27/2021 64.4 kg (142 lb) 05/19/2021 62.6 kg (138 lb) PHYSICAL EXAMINATION: General appearance: Well appearing, alert, in no acute distress, well-hydrated, well nourished. Skin: Skin color, texture, turgor normal, no suspicious rashes or lesions Head: Normocephalic, no masses, lesions, tenderness or abnormalities Back: no cva tenderness. Lungs: Lungs clear to auscultation. No wheezing, rhonchi, rales Heart: RRR without murmur, gallop, or rubs. No ectopy Abdomen: Normal abdominal exam, Abdomen soft, non-tender. Bowel sounds normal. No masses, organomegaly Extremities: No deformities, edema, skin discoloration, clubbing or cyanosis. Good capillary refill. ASSESSMENT/PLAN: 1. Urinary frequency - ICD9: 788.41, ICD10: R35.0 (primary diagnosis) acute - UA positive for susi esterase - Send urine for culture - Patient education for prevention given - change to bactrim. Recheck urine hcg before she leaves. Red flags for re-assessment reviewed with patient in detail. - UA DIP, URINE (POC) - URINE CULTURE - SULFAMETHOXAZOLE 800 MG-TRIMETHOPRIM 160 MG TABLET - CBC + DIFF - COMP METABOLIC PANEL 2. Acute pyelonephritis - ICD9: 590.10, ICD10: N10- - URINE CULTURE - SULFAMETHOXAZOLE 800 MG-TRIMETHOPRIM 160 MG TABLET - CBC + DIFF - COMP METABOLIC PANEL 3. Nausea - ICD9: 787.02, ICD10: R11.0 - add prilosec. - HCG QUAL UR B/O Manuel Rangel MD RTO in one week documented in this encounterCrystal Clinic Orthopedic Center10-04-2022 History of Present illness Narrative* Glen Burnhamlouiskim TOMER - 07/02/2022 9:56 AM EDT TRANSITION CARE MANAGEMENT (TCM) INITIAL CONTACT Manager Wireless Outreach Provider Action/FYI: Pt presented to [facility] ER on 06/26/22 with c/o nausea, vomiting and flank pain. Work up showed pyelonephritis. Pt treated with IV fluids, IV antibiotics and admitted to hospital. Urine cx + for Klebsiella pneumoniae. Pt improved with treatment. Pt reassessed on 06/28/22 and was dc'd from hospital at that time. Pt dc'd with 7 day course of Levofloxacin 750mg and PRN Zofran. TC to pt, she states she still is back to feeling normal, but notes that she is feeling better. Shedenies UTI sx. Initial contact with patient post discharge, spoke to patient. Patient identified by name and . TRANSITION CARE MANAGEMENT INITIAL OUTREACH DOCUMENTATION: Date of Outreach: 07/02/2022 Outreach Attempt 1: Contact Made Date of Discharge 06/28/2022 Some recent data might be hidden SUMMARY: -Pt discharged from [facility] on 06/28/22. -Admitted for: Pyelonephritis Do you have a hospital follow up appointment with your PCP? Appointment on 07/04/[address] Rangel. Yes. Remind patient of appointment date, time, and location. If not within 14 calendar days of discharge - please reschedule accordingly. MEDICATIONS: Many patients have questions or concerns about their medications once they are home. Were you prescribed any new medications? If yes, what are those medications? Levofloxacin 750mg 1 tablet daily x7 days; Zofran 4mg 1 tablet every 6 hours prn for nausea/vomiting. Were you told to hold any medications? No Were any of your medications discontinued? No Do you have any questions about getting or taking your medications? No Your discharge instructions/After visit Summary (AVS) are important in guiding you through the recovery process. Is there anything I might help you understand? No Do you have all the necessary equipment and supplies at home? Yes Medical records from recent hospitalization: Requested from outside hospital documented in this encounterCrystal Clinic [facility]opedic Center09-29-2022 Miscellaneous Notes* Telephone Encounter - Laila Choe LPN - 06/27/2022 8:01 AM EDT Phone call placed patients listed on chart (Earl) advised (see prior provider encounter) Patients verbalized understanding, agreed with plan of care. Laila Choe LPN * Telephone Encounter - Kim Uribe APRN.CNP - 06/27/2022 7:11 AM EDT COVID negative. Influenza and RSV negative. Continue treatment plan discussed at time of exam. Follow up with PCP. documented in this encounterCrystal Clinic Orthopedic Center09-28-2022 Instructions* Patient Instructions* Jeff Cabrera APRN.KAE - 06/26/2022 7:43 PM EDT How to Manage Common Symptoms Associated with COVID for Adults Fever- Fever is a temperature over 100.4 F and can occur when the body is fighting an infection. Tohelp treat a fever: Drink plenty of fluids and stay well hydrated. Eat small amounts of easy to digest food. Rest. Your body needs rest to recover, but getting up and moving around the house frequently is a good idea. You should try to continue doing your normal daily activities (bathing, toileting, grooming, cooking), though you will probably feel tired, and need to rest often. Avoid any heavy activity or exercise, as this will increase your body temperature. Dress in light clothing and stay covered in a light sheet. Keep the room temperature cool. Take a slightly warm (not cold or cool) bath, or apply damp washcloths to the forehead and wrists. Cough- Cough is a common symptom associated with COVID and can be bothersome. To help treat a cough: Stay well hydrated. Try warm water or tea with lemon and/or honey to help soothe the cough. Use a humidifier to add moisture to the air. Try a product with menthol, like a cough drop or a rub for your chest such as Vicks, which can helpreduce cough. Try cough drops. Avoid smoking and other strong odors or perfumes. Try breathing exercises to keep your lungs open and clear. Take a big deep breath through your noseand hold for 5 seconds before slowly releasing. Repeat frequently, while you are awake. Congestion- Runny nose or nasal congestion can occur with COVID. Treatment can help relieve symptoms: Try OTC nasal saline spray, or nasal saline rinse to relieve mucus congestion. Nasal strips can help keep nasal passages open, to increase airflow. Elevating your head with an extra pillow in bed can help reduce congestion. Using a humidifier can increase moisture in the air, and make breathing easier. Sore Throat- Another common symptom with COVID, can be managed at home by: Stay well hydrated. Gargle with salt water - mix teaspoon salt with 1 cup of warm water and gargle. This helps to loosen mucus in the back of the throat and may reduce discomfort. Try ice chips, popsicles or lozenges to soothe the throat. Nausea/Vomiting/Diarrhea- These are common symptoms, and staying hydrated is most important. If you are nauseous or vomiting, start with small sips of water every 10-15 minutes and increase astolerated. You can try sucking an ice cube too. If tolerating, you can try pedialyte or Gatorade, or flat sprite or vanessa-paco. Start slowly and increase as you are able to. Instead of meals, try smaller, more frequent snacks. Try eating bland foods like crackers, toast, rice, and applesauce. Avoid spicy, greasy or fried foods and dairy containing foods. Even if you aren't feeling hungry due to lack of smell or taste, it is important to try to take in some food when you are able. After drinking and eating, rest in an upright position for up to two hours as needed to help decrease nauseous feelings. Try closing your eyes, avoid moving and watching TV. Avoid strong odors that can make you feel more nauseated. When to seek emergency medical attention Look for emergency warning signs for COVID-19. If having any of these symptoms, seek emergency medical care immediately: Trouble breathing Persistent pain or pressure in the chest New confusion Inability to wake or stay awake Bluish lips or face *This list is not all possible symptoms. Please call your medical provider for any other symptoms that are severe or concerning to you. documented in this encounterC[facility]-28-[facility]22 History of Present illness Narrative* Jeff Cabrera APRN.CNP - 06/26/2022 7:38 PM EDT Subjective HPI Nontoxic-appearing female presents urgent care chief complaint fever nausea vomiting abdominal painslight nasal congestion. Patient states nasal congestion cough has been present for about 1 week. Dysuria vomiting abdominal pain body aches and chills started last few days. Fever has been present for 1 day. Highest recorded temperature 102.5. No known sick contacts. Has not been able to tolerate oral fluids or food today. States most bothersome symptom is vomiting. Denies any blood in vomit. Denies any productive cough headache sore throat chest pain shortness of breath or rashes. Past medical history prescription medication use allergies reviewed. BP 112/78 Pulse (!) 134 Temp (!) 38.7 C (101.7 F) (Tympanic) Resp 18 Wt 68.1 kg (150 lb 3.2oz) LMP 11/28/2019 (LMP Unknown) SpO2 98% BMI 26.61 kg/m .Patient presents with: Cough: Cough, congestion, fever, chills, bodyaches x 1 day PAST MEDICAL HISTORY Diagnosis Date Complication of anesthesia MEDICATION GIVEN TO SEDATE PT WITH TEAR DUCT SURGERY CAUSED ANAPHYLAXIS Congenital hip dysplasia wore brace Depression 11/25/2012 Herpes simplex virus (HSV) infection Migraines depression Preeclampsia Pyloric stenosis Stress headache 04/18/2014 VSD (ventricular septal defect) PAST SURGICAL HISTORY Procedure Laterality Date PARTIAL HYMENECTOMY PAST SURGICAL HISTORY OF surgery on tear ducts PYLOROMYOTOMY CUTTING PYLORIC MUSC pyloric stenosis as UNSPECIFIED ORAL SURGERY PROCEDURE, BY REPORT [place] teeth removed ALLERGIES Cephalexin, Latex, Other, and Zoloft [Sertraline Hcl] MEDICATIONS topiramate (TOPAMAX) 50 mg tablet Take 1 tablet by mouth twice daily. acyclovir (ZOVIRAX) 400 mg tablet Take 1 tablet by mouth as directed. 5 times a day for 5 days as needed for an outbreak ACETAMINOPHEN (TYLENOL ORAL) Take by mouth as needed. benzonatate (TESSALON PERLE) 100 mg capsule Take 2 capsules by mouth three times daily as needed. (Patient not taking: Reported on 01/04/2022 ) triamcinolone acetonide (NASACORT AQ) 55 mcg nasal inhaler Use 2 Sprays in the nose once daily. (Patient not taking: Reported on 01/04/2022 ) Ndpqipap-Ce-Hke-Fe-FA ( VITAMIN) tab Take 1 tablet by mouth. (Patient not taking: Reported on 01/04/2022 ) FAMILY HISTORY Problem Relation Age of Onset Arthritis Mother Heart Father Blood Disease Father clotting disease caused clotts Thyroid Father other (blood clotting disorder) Father MTHFR MUTATION Heart Maternal Grandmother Alcohol/Drug Maternal Grandmother Coronary Artery Disease Maternal Grandmother Alcohol/Drug Paternal Grandmother Coronary Artery Disease Paternal Grandfather Prostate Cancer Paternal Grandfather Alcohol/Drug Paternal Grandfather No Known Problems Daughter No Known Problems Son No Known Problems Daughter Blood Disease Paternal Uncle ANTITHOSPOLIPID ANTIBODY SYNDROME Blood Disease Paternal Uncle Heart Maternal Uncle Heart Maternal Uncle Cancer Maternal Uncle stomach cancer Social History Tobacco Use Smoking status: Never Smokeless tobacco: Never Vaping Use Vaping Use: Never used Substance Use Topics Alcohol use: Not Currently Comment: Rarely,NOT WHILE Drug use: No Review of Systems Constitutional: Positive for chills, fever and malaise/fatigue. HENT: Negative for congestion, ear discharge, ear pain, sinus pain and sore throat. Eyes: Negative for blurred vision, pain, discharge and redness. Respiratory: Negative for cough, hemoptysis, sputum production, shortness of breath, wheezing and stridor. Cardiovascular: Negative for chest pain. Gastrointestinal: Positive for abdominal pain, nausea and vomiting. Negative for diarrhea. Genitourinary: Positive for dysuria. Negative for flank pain, frequency, hematuria and urgency. Musculoskeletal: Positive for myalgias. Skin: Negative for itching and rash. Neurological: Negative for dizziness and headaches. Objective Physical Exam Constitutional: General: She is not in acute distress. Appearance: She is not diaphoretic. HENT: Head: Normocephalic. Nose: Congestion present. Mouth/Throat: Mouth: Mucous membranes are moist. Pharynx: Oropharynx is clear. No oropharyngeal exudate or posterior oropharyngeal erythema. Eyes: Conjunctiva/sclera: Conjunctivae normal. Pupils: Pupils are equal, round, and reactive to light. Cardiovascular: Rate and Rhythm: Normal rate and regular rhythm. Heart sounds: Normal heart sounds. Pulmonary: Effort: Pulmonary effort is normal. No tachypnea, accessory muscle usage or respiratory distress. Breath sounds: Normal breath sounds. No stridor. No wheezing, rhonchi or rales. Abdominal: General: There is no distension. Palpations: Abdomen is soft. Tenderness: There is abdominal tenderness. There is no left CVA tenderness, guarding or rebound. Musculoskeletal: Cervical back: Normal range of motion and neck supple. No rigidity or tenderness. Lymphadenopathy: Cervical: No cervical adenopathy. Skin: General: Skin is warm and dry. Neurological: Mental Status: She is alert and oriented to person, place, and time. ASSESSMENT/PLAN: 1. Suspected COVID-19 virus infection - ICD9: V01.79, ICD10: Z20.822 (primary diagnosis) - COVID WITH FLUA+B, ROUTINE 2. Urinary frequency - ICD9: 788.41, ICD10: R35.0 - UA DIP, URINE (POC) - URINE CULTURE Leukocytes blood protein noted on urine dip. Patient is febrile. Unable to tolerate oral fluids. Slightly tachycardic. Will test for COVID-19 however with patient's inability to tolerate oral fluids I recommended patient be seen the ED for further evaluation care. Patient will be seen at [facility]. Patient verbalized understand agrees with plan of care. Jeff Cabrera APRN.KAE documented in this encounterCrystal [facility]09-28-2022 Miscellaneous Notes* Telephone Encounter - Sabi Miller RN - 06/26/2022 6:10 PM EDT Patient calling to say she has flu like symptoms. Body aches, fever, headache, mild cough, nausea with vomiting. Has not self tested for COVID. Unable to do VV. Asking for something for nausea. Has not seen PCP since 05/14/21. Advised Urgent Care. She is agreeable. Sabi Miller RN documented in this encounterCrystal Clinic [facility]07-19-2022 Miscellaneous Notes* Telephone Encounter - Deann Khan RN - 04/16/2022 11:32 AM EDT Pt reports she only has a few pills left. Patient has been identified by name and date of : Yes Patient phones for refill(s): Pending Prescriptions Disp Refills TOPIRAMATE 50 MG TABLET 60 tablet 11 Sig: Take 1 tablet by mouth twice daily. TALAT: No Date of last office visit in primary care: 05/14/21 Future visit: none Last 2 Encounter Wt Readings: Date: Wt: 01/04/2022 67.1 kg (148 lb) 09/27/2021 64.4 kg (142 lb) Previous labs/tests for medication: Blood Pressure: BUN (mg/dL) Date Value 07/23/2021 16 Sodium (mmol/L) Date Value 07/23/2021 140 Last 1 Encounter BP Readings: Date: BP: 01/04/2022 120/70 Liver Function: ALT (U/L) Date Value 07/23/2021 11 AST (U/L) Date Value 07/23/2021 17 Please advise. Thank you. Deann Khan RN documented in this encounterCrystal Clinic [facility]05-31-2022 Miscellaneous Notes* Telephone Encounter - Ghada Osullivan RN - 02/26/2022 10:30 PM EDT Reason for call: Covid-19 exposure to daughter. Patient has not tested as of yet. Outcome: Covid Crosswalk; patient declines scheduling for Covid-19 test at this time. Patient declines conference to appointment center for assistance with scheduling. Patient states she will call back if symptoms are worsening. Reason for Disposition HIGH RISK for severe COVID complications (e.g., weak immune system, age > 64 years, obesity withBMI > 25, , chronic lung disease or other chronic medical condition) (Exception: Alreadyseen by PCP and no new or worsening symptoms.) ventricular septal defect Answer Assessment - Initial Assessment Questions 1. COVID-19 DIAGNOSIS: Patient has not taken covid testing. 2. COVID-19 EXPOSURE: Daughter was covid positive from home test. 3. ONSET: When did the COVID-19 symptoms start? 02/24/2022 evening 4. WORST SYMPTOM: Sore throat and cough 5. COUGH: Moderate productive cough 6. FEVER: Denies 7. RESPIRATORY STATUS: Normal 8. [id number]: Worse 9. HIGH RISK DISEASE: Heart defect 10. VACCINE: Denies 11. BOOSTER: Denies 12. : Is there any chance you are ? When was your last menstrual period? Denies 13. OTHER SYMPTOMS: Diarrhea on and off Headache Leg cramping Protocols used: CORONAVIRUS (COVID-19) DIAGNOSED OR [id number] documented in this encounterCrystal Clinic [facility]04-15-2022 History of Present illness Narrative* Kim Loomis RDMS - 01/11/2022 1:00 PM EDT Radiology Service Progress Note PATIENT NAME: Shira Lepe DATE OF SERVICE: January 11, 2022 TIME: 1:39 PM PATIENT IDENTITY VERIFICATION COMPLETED USING TWO (2) IDENTIFIERS: Name and Date of confirmedby patient verbally. FALL SCREENING: Has the patient had 2 falls in the last year or 1 fall with injury or currently using an Ambulatory Assistive Device (Walker, Cane, Wheelchair, Crutches, etc.)? No PATIENT GENDER DATA: Female. status: : No status: N/A PATIENT RELEVANT IMPLANT DATA REVIEWED: Not Applicable RADIOLOGY DEPARTMENT: Ultrasound PERIPHERAL IV DATA: Not applicable SIGNED BY: Kim Loomis RDMS RVT January 11, 2022 1:39 PM documented in this encounterCrystal Clinic [facility]04-08-2022 Instructions* Patient Instructions* Elizabeth Juarez APRN.CNM - 01/04/2022 3:10 PM EDT GENERAL VULVAR CARE The goal of vulvar therapy is to keep the vulva dry and free from irritants. Below is a list of items that should be done or avoided for vulvar hygiene. DO'S * Avoid soap when washing the vulva, warm water only. * Dry vulva with a blow dryer on cool setting. * Wear only WHITE, 100% cotton underpants. * Rinse underclothes carefully after washing. * Wash new underclothes before wearing. * Mild soap for washing underclothes - no detergents, especially Tide. * Use soft toilet tissue - WHITE ONLY. * Use tampons for menstrual flow - not deodorized. * Take Aveeno sitz baths daily, if prescribed by physician. DONT'S * Scratch * Use soap, detergents, or fabric softener (liquid or paper). * Use nylon or ricardo acetate. * Wear panty hose or panty girdles. * Use perineal pads (Kotex, Modess, etc.). * Engage in activity that causes the perineum to remain wet. * Use Vaseline, oils, greases, bubble bath, bath oils, feminine sprays, etc. * Use talc or powder. * Use douches, unless prescribed by physician. [place]agen for women- Take daily documented in this encounterCrystal Clinic [facility]04-08-2022 History of Present illness Narrative* Elizabeth Juarez APRN.CNM - 01/04/2022 2:42 PM EDT Shira Lepe is a 31 year old female who presents for problem visit of irregular period with prolonged spotting the past 5-6 months. Having cycles every 2 weeks. Starts out with spotting for 1-2 weeks and then has 1 week of light period. Concerned because she is starting to feel weak and tired at times. Only has to wear panty liner or thin pad during cycles. Denies any pain or cramping. Does notuse anything for contraception. History of IUD but felt it made migraines worse. Does not want to take any control. Her and using condoms. 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 History Comments: Sexual Activity: Yes; Male Contraception: No contraception data on record PAST MEDICAL HISTORY Diagnosis Date Complication of anesthesia MEDICATION GIVEN TO SEDATE PT WITH TEAR DUCT SURGERY CAUSED ANAPHYLAXIS Congenital hip dysplasia wore brace Depression 11/25/2012 Herpes simplex virus (HSV) infection Migraines depression Preeclampsia Pyloric stenosis Stress headache 04/18/2014 VSD (ventricular septal defect) PAST SURGICAL HISTORY Procedure Laterality Date INCISION OF PYLORIC MUSCLE pyloric stenosis as infant PARTIAL HYMENECTOMY PAST SURGICAL HISTORY OF surgery on tear ducts UNSPECIFIED ORAL SURGERY PROCEDURE, BY REPORT [place] teeth removed FAMILY HISTORY Problem Relation Age of Onset Arthritis Mother Heart Father Blood Disease Father clotting disease caused clotts Thyroid Father other (blood clotting disorder) Father MTHFR MUTATION Heart Maternal Grandmother Alcohol/Drug Maternal Grandmother Coronary Artery Disease Maternal Grandmother Alcohol/Drug Paternal Grandmother Coronary Artery Disease Paternal Grandfather Prostate Cancer Paternal Grandfather Alcohol/Drug Paternal Grandfather No Known Problems Daughter No Known Problems Son No Known Problems Daughter Blood Disease Paternal Uncle ANTITHOSPOLIPID ANTIBODY SYNDROME Blood Disease Paternal Uncle Heart Maternal Uncle Heart Maternal Uncle Cancer Maternal Uncle stomach cancer Social History Tobacco Use Smoking status: Never Smoker Smokeless tobacco: Never Used Vaping Use Vaping Use: Never used Substance Use Topics Alcohol use: Not Currently Comment: Rarely,NOT WHILE Drug use: No Current Outpatient Medications Medication Sig topiramate (TOPAMAX) 50 mg tablet Take 1 tablet by mouth twice daily. acyclovir (ZOVIRAX) 400 mg tablet Take 1 tablet by mouth as directed. 5 times a day for 5 days as needed for an outbreak ACETAMINOPHEN (TYLENOL ORAL) Take by mouth as needed. benzonatate (TESSALON PERLE) 100 mg capsule Take 2 capsules by mouth three times daily as needed. (Patient not taking: Reported on 01/04/2022 ) triamcinolone acetonide (NASACORT AQ) 55 mcg nasal inhaler Use 2 Sprays in the nose once daily. (Patient not taking: Reported on 01/04/2022 ) Mjmfdzyf-Gy-Ezy-Fe-FA ( VITAMIN) tab Take 1 tablet by mouth. (Patient not taking: Reported on 01/04/2022 ) No current facility-administered medications for this visit. Allergies As of Date: 01/04/2022 Allergen Noted Reaction CEPHALEXIN 05/27/2013 Vomiting LATEX 04/17/2010 Rash and Swelling OTHER 08/08/2004 Unknown ZOLOFT [SERTRALINE HCL] 04/24/2015 Mental Status Change Fully Assessed 01/04/2022 REVIEW OF SYSTEMS Abdomen: No bloating, early satiety, indigestion, or increased flatulence. No abdominal pain, nausea, vomiting, diarrhea, or constipation. Bladder: No dysuria, gross hematuria, urinary frequency, urinary urgency, or incontinence. Breast: No breast lumps, nipple d/c, overlying skin changes, redness or skin retraction. Expanded ROS: N/A Allergies and current medication updated:Yes EXAM: LMP 11/28/2019 GENERAL: pleasant, female in no apparent distress HEENT: Normocephalic and atraumatic NECK: Supple and full range of motion DERMATOLOGY: Normal and without lesions BREAST: deferred CHEST: Normal inspiratory effort ABDOMEN: Deferred PELVIC: deferred BIMANUAL: deferred NEURO: alert and oriented x3,exam grossly non-focal EXTREMITIES: normal ASSESSMENT/PLAN: 1. Irregular periods/menstrual cycles - ICD9: 626.4, ICD10: N92.6 (primary diagnosis) - CBC + DIFF - TSH BLD - US FEMALE PELVIS TRANSVAG 2. Intractable chronic migraine without aura and without status migrainosus - ICD9: 346.71, ICD10: G43.719 - Unable to take estrogen control 3. Spotting between menses - ICD9: 626.6, ICD10: N92.3 Will notify patient of results and discuss plan of care at that time Patient agrees with plan. Elizabeth Juarez APRN.CNM I spent a total of 25 minutes on the date of the service which included preparing to see the patient, [id number] patient care, completing clinical documentation, counseling and educating the patient/family/caregiver and ordering medications, tests, or procedures Medical Decision Making Elizabeth Juarez APRN.CNM documented in this encounterCrystal Clinic [facility]10-30-2020 History of Past illness Narrative* Problem Noted Date Resolved Date Positive GBS test 07/28/2020 09/06/2020 BV (bacterial vaginosis) 06/16/2020 020 Overview: June 16, 2020 Treated. 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 Britta Hatch MD Nausea and vomiting in 01/20/2020 09/06/2020 Overview: 01/20/2020Patient is complaining of nausea and occasional vomiting in . Dietary considerations discussed . Vitamin B6 recommended. Advised patient to call/come in if she is unable to keep any food or fluids down in a 24-hour periodTKRN History of herpes genitalis 01/20/2020 120 05/2020 Overview: 08/23/20-Started GBS prophylaxis. Kim Gabriel APRN.CNM 01/20/2020. Patient has a history of genital herpes. I have discussed with her the importance of reporting any outbreaks during . TKRN Lice infestation 04/14/2019 01/26/2020 Insomnia secondary to situational depression 11/201601/26/2020 Essential hypertension, benign 04/18/2014 0 04/14/2015 Stress headache 04/18/2014 09/06/2020 Hypertension in , preeclampsia, severe, delivered 03/28/2014 04/14/2015 Hypokalemia 11/15/2013 04/14/2015 Hypersomnolence 11/12/2013 09/20/2015 Short interval between pregn ancies complicating , antepartum 08/17/2013 11/06/2013 Overview: 08/17/2013She delivered her previous child December 10, 2012. TKRN First trimester bleeding 08/17/2013 014 Overview: 08/17/2013Patient is unsure of the date of her last menstrual period. She had some brown spotting yesterday. She denies any spotting today. She denies any recent intercourse prior to the spotting. She denies any pain. She states that she is unconcerned regarding the spotting because she had this with a prior . Discussed the spotting in with Dr. Keerthi Chandler. Patient to call/come in if she develops any further bleeding, the development of pain, or PRN problems. An ultrasound was ordered for uncertain dates and first trimester spotting. 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 She states she has irregular menses every 28-56 days. She is 7 weeks 1 day by dates. She states she has felt movement for the past 3-[address] Britta Hatch ordered an ultrasound for uncertain dates. History of delivery, currently 05/14/2012 03/28/2014 Overview: 07/21/12 - counseled again extensively on progesterone, pt declines - KK 05/26 - needs baseline cervical length, counseled extensively on importance of progesterone injections, pt is considering this - KK 08/17/2013Patient delivered her first child at 35 weeks due to premature rupture of membranes. She was counseled regarding Progesterone her last , but declined. She delivered her last child at 37w5d. TKRN 01/20/2020Last 2 pregnancies delivered at term. TKRN Hx of preeclampsia, prior , currently p regnant 05/14/2012 09/06/2020 Overview: 08/17/2013She had preeclampsia with her first and last and was induced due to PIH with her2nd at 37w5d. 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 Pt. born with congenital hip dysplasia. Pt's father has MTHFR mutation. Her paternal Uncles both have Antiphospholipid Antibody Syndrome. Pt states she had genetic testing in the past, which was negative for any bleeding disorders.The father of the baby's second cousin has autism. History of depression 05/14/2012 08/10/2013 Overview: 05/14/2012Pt states she has a history of depression that was never diagnosed. She states the depression started at age 13 after her brother . She has never been on medication. Discussed increased risks of depression during and and importance of reporting the development or worsening of symptoms should they occur. Pt states she had suicidal thoughts in the past, but never had a plan. She denies any suicidal thoughts since October 2010. History of anesthesia complications 05/14/2012 03/28/2014 Overview: 05/14/2012Pt states she had an anaphylactic reaction to drugs that were given to sedate her during her eye surgery. She denies any knowledge of problems with sedation or anesthesia during any other surgeries. She is unsure of the name of the medication. Supervision of normal first 05/01/2010 11/14/2010 documented as of this encounter (statuses as of 01/04/2022) [facility] History of Past illness Narrative* Problem Noted Date Resolved Date Positive GBS test 07/28/2020 09/06/2020 BV (bacterial vaginosis) 06/16/2020 020 Overview: June 16, 2020 Treated. 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 Britta Hatch MD Nausea and vomiting in 01/20/2020 09/06/2020 Overview: 01/20/2020Patient is complaining of nausea and occasional vomiting in . Dietary considerations discussed . Vitamin B6 recommended. Advised patient to call/come in if she is unable to keep any food or fluids down in a 24-hour periodTKRN History of herpes genitalis 01/20/202005/2020 Overview: 08/23/20-Started GBS prophylaxis. Kim Gabriel APRN.CNM 01/20/2020. Patient has a history of genital herpes. I have discussed with her the importance of reporting any outbreaks during . TKRN Lice infestation 04/14/2019 01/26/2020 Insomnia secondary to situational depression 11/201601/26/2020 Essential hypertension, benign 04/18/2014 0 04/14/2015 Stress headache 04/18/2014 09/06/2020 Hypertension in , preeclampsia, severe, delivered 03/28/2014 04/14/2015 Hypokalemia 11/15/2013 04/14/2015 Hypersomnolence 11/12/2013 09/20/2015 Short interval between pregn ancies complicating , antepartum 08/17/2013 11/06/2013 Overview: 08/17/2013She delivered her previous child December 10, 2012. TKRN First trimester bleeding 08/17/2013 014 Overview: 08/17/2013Patient is unsure of the date of her last menstrual period. She had some brown spotting yesterday. She denies any spotting today. She denies any recent intercourse prior to the spotting. She denies any pain. She states that she is unconcerned regarding the spotting because she had this with a prior . Discussed the spotting in with Dr. Keerthi Chandler. Patient to call/come in if she develops any further bleeding, the development of pain, or PRN problems. An ultrasound was ordered for uncertain dates and first trimester spotting. 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 She states she has irregular menses every 28-56 days. She is 7 weeks 1 day by dates. She states she has felt movement for the past 3-[address] Britta Hatch ordered an ultrasound for uncertain dates. History of delivery, currently 05/14/2012 03/28/2014 Overview: 07/21/12 - counseled again extensively on progesterone, pt declines - KK 05/26 - needs baseline cervical length, counseled extensively on importance of progesterone injections, pt is considering this - KK 08/17/2013Patient delivered her first child at 35 weeks due to premature rupture of membranes. She was counseled regarding Progesterone her last , but declined. She delivered her last child at 37w5d. TKRN 01/20/2020Last 2 pregnancies delivered at term. TKRN Hx of preeclampsia, prior , currently p regnant 05/14/2012 09/06/2020 Overview: 08/17/2013She had preeclampsia with her first and last and was induced due to PIH with her2nd at 37w5d. 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 Pt. born with congenital hip dysplasia. Pt's father has MTHFR mutation. Her paternal Uncles both have Antiphospholipid Antibody Syndrome. Pt states she had genetic testing in the past, which was negative for any bleeding disorders.The father of the baby's second cousin has autism. History of depression 05/14/2012 08/10/2013 Overview: 05/14/2012Pt states she has a history of depression that was never diagnosed. She states the depression started at age 13 after her brother . She has never been on medication. Discussed increased risks of depression during and and importance of reporting the development or worsening of symptoms should they occur. Pt states she had suicidal thoughts in the past, but never had a plan. She denies any suicidal thoughts since October 2010. History of anesthesia complications 05/14/2012 03/28/2014 Overview: 05/14/2012Pt states she had an anaphylactic reaction to drugs that were given to sedate her during her eye surgery. She denies any knowledge of problems with sedation or anesthesia during any other surgeries. She is unsure of the name of the medication. Supervision of normal first 05/01/2010 11/14/2010 documented as of this encounter (statuses as of 01/12/2022) [facility] History of Past illness Narrative* Problem Noted Date Resolved Date Positive GBS test 07/28/2020 09/06/2020 BV (bacterial vaginosis) 06/16/2020 020 Overview: June 16, 2020 Treated. 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 Britta Hatch MD Nausea and vomiting in 01/20/2020 09/06/2020 Overview: 01/20/2020Patient is complaining of nausea and occasional vomiting in . Dietary considerations discussed . Vitamin B6 recommended. Advised patient to call/come in if she is unable to keep any food or fluids down in a 24-hour periodTKRN History of herpes genitalis 01/20/2020 1205/2020 Overview: 08/23/20-Started GBS prophylaxis. Kim Gabriel APRN.CNM 01/20/2020. Patient has a history of genital herpes. I have discussed with her the importance of reporting any outbreaks during . TKRN Lice infestation 04/14/2019 01/26/2020 Insomnia secondary to situational depression 11/201601/26/2020 Essential hypertension, benign 04/18/2014 0 04/14/2015 Stress headache 04/18/2014 09/06/2020 Hypertension in , preeclampsia, severe, delivered 03/28/2014 04/14/2015 Hypokalemia 11/15/2013 04/14/2015 Hypersomnolence 11/12/2013 09/20/2015 Short interval between pregn ancies complicating , antepartum 08/17/2013 11/06/2013 Overview: 08/17/2013She delivered her previous child December 10, 2012. TKRN First trimester bleeding 08/17/2013 014 Overview: 08/17/2013Patient is unsure of the date of her last menstrual period. She had some brown spotting yesterday. She denies any spotting today. She denies any recent intercourse prior to the spotting. She denies any pain. She states that she is unconcerned regarding the spotting because she had this with a prior . Discussed the spotting in with Dr. Keerthi Chandler. Patient to call/come in if she develops any further bleeding, the development of pain, or PRN problems. An ultrasound was ordered for uncertain dates and first trimester spotting. 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 She states she has irregular menses every 28-56 days. She is 7 weeks 1 day by dates. She states she has felt movement for the past 3-[address] Britta Hatch ordered an ultrasound for uncertain dates. History of delivery, currently 05/14/2012 03/28/2014 Overview: 07/21/12 - counseled again extensively on progesterone, pt declines - KK 05/26 - needs baseline cervical length, counseled extensively on importance of progesterone injections, pt is considering this - KK 08/17/2013Patient delivered her first child at 35 weeks due to premature rupture of membranes. She was counseled regarding Progesterone her last , but declined. She delivered her last child at 37w5d. TKRN 01/20/2020Last 2 pregnancies delivered at term. TKRN Hx of preeclampsia, prior , currently p regnant 05/14/2012 09/06/2020 Overview: 08/17/2013She had preeclampsia with her first and last and was induced due to PIH with her2nd at 37w5d. 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 Pt. born with congenital hip dysplasia. Pt's father has MTHFR mutation. Her paternal Uncles both have Antiphospholipid Antibody Syndrome. Pt states she had genetic testing in the past, which was negative for any bleeding disorders.The father of the baby's second cousin has autism. History of depression 05/14/2012 08/10/2013 Overview: 05/14/2012Pt states she has a history of depression that was never diagnosed. She states the depression started at age 13 after her brother . She has never been on medication. Discussed increased risks of depression during and and importance of reporting the development or worsening of symptoms should they occur. Pt states she had suicidal thoughts in the past, but never had a plan. She denies any suicidal thoughts since October 2010. History of anesthesia complications 05/14/2012 03/28/2014 Overview: 05/14/2012Pt states she had an anaphylactic reaction to drugs that were given to sedate her during her eye surgery. She denies any knowledge of problems with sedation or anesthesia during any other surgeries. She is unsure of the name of the medication. Supervision of normal first 05/01/2010 11/14/2010 documented as of this encounter (statuses as of 02/27/2022) [facility] History of Past illness Narrative* Problem Noted Date Resolved Date Positive GBS test 07/28/2020 09/06/2020 BV (bacterial vaginosis) 06/16/2020 020 Overview: June 16, 2020 Treated. 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 Britta Hatch MD Nausea and vomiting in 01/20/2020 09/06/2020 Overview: 01/20/2020Patient is complaining of nausea and occasional vomiting in . Dietary considerations discussed . Vitamin B6 recommended. Advised patient to call/come in if she is unable to keep any food or fluids down in a 24-hour periodTKRN History of herpes genitalis 01/20/202005/2020 Overview: 08/23/20-Started GBS prophylaxis. Kim Gabriel APRN.RENY 01/20/2020. Patient has a history of genital herpes. I have discussed with her the importance of reporting any outbreaks during . TKRN Lice infestation 04/14/2019 01/26/2020 Insomnia secondary to situational depression 11/201601/26/2020 Essential hypertension, benign 04/18/2014 0 04/14/2015 Stress headache 04/18/2014 09/06/2020 Hypertension in , preeclampsia, severe, delivered 03/28/2014 04/14/2015 Hypokalemia 11/15/2013 04/14/2015 Hypersomnolence 11/12/2013 09/20/2015 Short interval between pregn ancies complicating , antepartum 08/17/2013 11/06/2013 Overview: 08/17/2013Krissy delivered her previous child December 10, 2012. TKRN First trimester bleeding 08/17/2013 014 Overview: 08/17/2013Patient is unsure of the date of her last menstrual period. She had some brown spotting yesterday. She denies any spotting today. She denies any recent intercourse prior to the spotting. She denies any pain. She states that she is unconcerned regarding the spotting because she had this with a prior . Discussed the spotting in with Dr. Keerthi Chandler. Patient to call/come in if she develops any further bleeding, the development of pain, or PRN problems. An ultrasound was ordered for uncertain dates and first trimester spotting. 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 She states she has irregular menses every 28-56 days. She is 7 weeks 1 day by dates. She states she has felt movement for the past 3-[address] Britta Hatch ordered an ultrasound for uncertain dates. History of delivery, currently 05/14/2012 03/28/2014 Overview: 07/21/12 - counseled again extensively on progesterone, pt declines - KK 05/26 - needs baseline cervical length, counseled extensively on importance of progesterone injections, pt is considering this - KK 08/17/2013Patient delivered her first child at 35 weeks due to premature rupture of membranes. She was counseled regarding Progesterone her last , but declined. She delivered her last child at 37w5d. TKRN 01/20/2020Last 2 pregnancies delivered at term. TKRN Hx of preeclampsia, prior , currently p regnant 05/14/2012 09/06/2020 Overview: 08/17/2013She had preeclampsia with her first and last and was induced due to PIH with her2nd at 37w5d. 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 Pt. born with congenital hip dysplasia. Pt's father has MTHFR mutation. Her paternal Uncles both have Antiphospholipid Antibody Syndrome. Pt states she had genetic testing in the past, which was negative for any bleeding disorders.The father of the baby's second cousin has autism. History of depression 05/14/2012 08/10/2013 Overview: 05/14/2012Pt states she has a history of depression that was never diagnosed. She states the depression started at age 13 after her brother . She has never been on medication. Discussed increased risks of depression during and and importance of reporting the development or worsening of symptoms should they occur. Pt states she had suicidal thoughts in the past, but never had a plan. She denies any suicidal thoughts since October 2010. History of anesthesia complications 05/14/2012 03/28/2014 Overview: 05/14/2012Pt states she had an anaphylactic reaction to drugs that were given to sedate her during her eye surgery. She denies any knowledge of problems with sedation or anesthesia during any other surgeries. She is unsure of the name of the medication. Supervision of normal first 05/01/2010 11/14/2010 documented as of this encounter (statuses as of 04/16/2022) [facility] History of Past illness Narrative* Problem Noted Date Resolved Date Positive GBS test 07/28/2020 09/06/2020 BV (bacterial vaginosis) 06/16/2020 020 Overview: June 16, 2020 Treated. 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 Britta Hatch MD Nausea and vomiting in 01/20/2020 09/06/2020 Overview: 01/20/2020Patient is complaining of nausea and occasional vomiting in . Dietary considerations discussed . Vitamin B6 recommended. Advised patient to call/come in if she is unable to keep any food or fluids down in a 24-hour periodTKRN History of herpes genitalis 01/20/202005/2020 Overview: 08/23/20-Started GBS prophylaxis. Kim Gabriel APRN.CNM 01/20/2020. Patient has a history of genital herpes. I have discussed with her the importance of reporting any outbreaks during . TKRN Lice infestation 04/14/2019 01/26/2020 Insomnia secondary to situational depression 11/201601/26/2020 Essential hypertension, benign 04/18/2014 0 04/14/2015 Stress headache 04/18/2014 09/06/2020 Hypertension in , preeclampsia, severe, delivered 03/28/2014 04/14/2015 Hypokalemia 11/15/2013 04/14/2015 Hypersomnolence 11/12/2013 09/20/2015 Short interval between pregn ancies complicating , antepartum 08/17/2013 11/06/2013 Overview: 08/17/2013She delivered her previous child December 10, 2012. TKRN First trimester bleeding 08/17/2013 014 Overview: 08/17/2013Patient is unsure of the date of her last menstrual period. She had some brown spotting yesterday. She denies any spotting today. She denies any recent intercourse prior to the spotting. She denies any pain. She states that she is unconcerned regarding the spotting because she had this with a prior . Discussed the spotting in with Dr. Keerthi Chandler. Patient to call/come in if she develops any further bleeding, the development of pain, or PRN problems. An ultrasound was ordered for uncertain dates and first trimester spotting. 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 She states she has irregular menses every 28-56 days. She is 7 weeks 1 day by dates. She states she has felt movement for the past 3-[address] Britta Hatch ordered an ultrasound for uncertain dates. History of delivery, currently 05/14/2012 03/28/2014 Overview: 07/21/12 - counseled again extensively on progesterone, pt declines - KK 05/26 - needs baseline cervical length, counseled extensively on importance of progesterone injections, pt is considering this - KK 08/17/2013Patient delivered her first child at 35 weeks due to premature rupture of membranes. She was counseled regarding Progesterone her last , but declined. She delivered her last child at 37w5d. TKRN 01/20/2020Last 2 pregnancies delivered at term. TKRN Hx of preeclampsia, prior , currently p regnant 05/14/2012 09/06/2020 Overview: 08/17/2013She had preeclampsia with her first and last and was induced due to PIH with her2nd at 37w5d. 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 Pt. born with congenital hip dysplasia. Pt's father has MTHFR mutation. Her paternal Uncles both have Antiphospholipid Antibody Syndrome. Pt states she had genetic testing in the past, which was negative for any bleeding disorders.The father of the baby's second cousin has autism. History of depression 05/14/2012 08/10/2013 Overview: 05/14/2012Pt states she has a history of depression that was never diagnosed. She states the depression started at age 13 after her brother . She has never been on medication. Discussed increased risks of depression during and and importance of reporting the development or worsening of symptoms should they occur. Pt states she had suicidal thoughts in the past, but never had a plan. She denies any suicidal thoughts since October 2010. History of anesthesia complications 05/14/2012 03/28/2014 Overview: 05/14/2012Pt states she had an anaphylactic reaction to drugs that were given to sedate her during her eye surgery. She denies any knowledge of problems with sedation or anesthesia during any other surgeries. She is unsure of the name of the medication. Supervision of normal first 05/01/2010 11/14/2010 documented as of this encounter (statuses as of 06/27/2022) [facility] History of Past illness Narrative* Problem Noted Date Resolved Date Positive GBS test 07/28/2020 09/06/2020 BV (bacterial vaginosis) 06/16/2020 020 Overview: June 16, 2020 Treated. 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 Britta Hatch MD Nausea and vomiting in 01/20/2020 09/06/2020 Overview: 01/20/2020Patient is complaining of nausea and occasional vomiting in . Dietary considerations discussed . Vitamin B6 recommended. Advised patient to call/come in if she is unable to keep any food or fluids down in a 24-hour periodTKRN History of herpes genitalis 01/20/202005/2020 Overview: 08/23/20-Started GBS prophylaxis. Kim Gabriel APRN.CNM 01/20/2020. Patient has a history of genital herpes. I have discussed with her the importance of reporting any outbreaks during . TKRN Lice infestation 04/14/2019 01/26/2020 Insomnia secondary to situational depression 11/201601/26/2020 Essential hypertension, benign 04/18/2014 0 04/14/2015 Stress headache 04/18/2014 09/06/2020 Hypertension in , preeclampsia, severe, delivered 03/28/2014 04/14/2015 Hypokalemia 11/15/2013 04/14/2015 Hypersomnolence 11/12/2013 09/20/2015 Short interval between pregn ancies complicating , antepartum 08/17/2013 11/06/2013 Overview: 08/17/2013She delivered her previous child December 10, 2012. TKRN First trimester bleeding 08/17/2013 014 Overview: 08/17/2013Patient is unsure of the date of her last menstrual period. She had some brown spotting yesterday. She denies any spotting today. She denies any recent intercourse prior to the spotting. She denies any pain. She states that she is unconcerned regarding the spotting because she had this with a prior . Discussed the spotting in with Dr. Keerthi Chandler. Patient to call/come in if she develops any further bleeding, the development of pain, or PRN problems. An ultrasound was ordered for uncertain dates and first trimester spotting. 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 She states she has irregular menses every 28-56 days. She is 7 weeks 1 day by dates. She states she has felt movement for the past 3-[address] Britta Hatch ordered an ultrasound for uncertain dates. History of delivery, currently 05/14/2012 03/28/2014 Overview: 07/21/12 - counseled again extensively on progesterone, pt declines - KK 05/26 - needs baseline cervical length, counseled extensively on importance of progesterone injections, pt is considering this - KK 08/17/2013Patient delivered her first child at 35 weeks due to premature rupture of membranes. She was counseled regarding Progesterone her last , but declined. She delivered her last child at 37w5d. TKRN 01/20/2020Last 2 pregnancies delivered at term. TKRN Hx of preeclampsia, prior , currently p regnant 05/14/2012 09/06/2020 Overview: 08/17/2013She had preeclampsia with her first and last and was induced due to PIH with her2nd at 37w5d. 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 Pt. born with congenital hip dysplasia. Pt's father has MTHFR mutation. Her paternal Uncles both have Antiphospholipid Antibody Syndrome. Pt states she had genetic testing in the past, which was negative for any bleeding disorders.The father of the baby's second cousin has autism. History of depression 05/14/2012 08/10/2013 Overview: 05/14/2012Pt states she has a history of depression that was never diagnosed. She states the depression started at age 13 after her brother . She has never been on medication. Discussed increased risks of depression during and and importance of reporting the development or worsening of symptoms should they occur. Pt states she had suicidal thoughts in the past, but never had a plan. She denies any suicidal thoughts since October 2010. History of anesthesia complications 05/14/2012 03/28/2014 Overview: 05/14/2012Pt states she had an anaphylactic reaction to drugs that were given to sedate her during her eye surgery. She denies any knowledge of problems with sedation or anesthesia during any other surgeries. She is unsure of the name of the medication. Supervision of normal first 05/01/2010 11/14/2010 documented as of this encounter (statuses as of 06/27/2022) [facility] History of Past illness Narrative* Problem Noted Date Resolved Date Positive GBS test 07/28/2020 09/06/2020 BV (bacterial vaginosis) 06/16/2020 020 Overview: June 16, 2020 Treated. 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 Britta Hatch MD Nausea and vomiting in 01/20/2020 09/06/2020 Overview: 01/20/2020Patient is complaining of nausea and occasional vomiting in . Dietary considerations discussed . Vitamin B6 recommended. Advised patient to call/come in if she is unable to keep any food or fluids down in a 24-hour periodTKRN History of herpes genitalis 01/20/202005/2020 Overview: 08/23/20-Started GBS prophylaxis. Kim Gabriel APRN.REYN 01/20/2020. Patient has a history of genital herpes. I have discussed with her the importance of reporting any outbreaks during . TKRN Lice infestation 04/14/2019 01/26/2020 Insomnia secondary to situational depression 11/201601/26/2020 Essential hypertension, benign 04/18/2014 0 04/14/2015 Stress headache 04/18/2014 09/06/2020 Hypertension in , preeclampsia, severe, delivered 03/28/2014 04/14/2015 Hypokalemia 11/15/2013 04/14/2015 Hypersomnolence 11/12/2013 09/20/2015 Short interval between pregn ancies complicating , antepartum 08/17/2013 11/06/2013 Overview: 08/17/2013She delivered her previous child December 10, 2012. TKRN First trimester bleeding 08/17/2013 014 Overview: 08/17/2013Patient is unsure of the date of her last menstrual period. She had some brown spotting yesterday. She denies any spotting today. She denies any recent intercourse prior to the spotting. She denies any pain. She states that she is unconcerned regarding the spotting because she had this with a prior . Discussed the spotting in with Dr. Keerthi Chandler. Patient to call/come in if she develops any further bleeding, the development of pain, or PRN problems. An ultrasound was ordered for uncertain dates and first trimester spotting. 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 She states she has irregular menses every 28-56 days. She is 7 weeks 1 day by dates. She states she has felt movement for the past 3-[address] Britta Hatch ordered an ultrasound for uncertain dates. History of delivery, currently 05/14/2012 03/28/2014 Overview: 07/21/12 - counseled again extensively on progesterone, pt declines - KK 05/26 - needs baseline cervical length, counseled extensively on importance of progesterone injections, pt is considering this - KK 08/17/2013Patient delivered her first child at 35 weeks due to premature rupture of membranes. She was counseled regarding Progesterone her last , but declined. She delivered her last child at 37w5d. TKRN 01/20/2020Last 2 pregnancies delivered at term. TKRN Hx of preeclampsia, prior , currently p regnant 05/14/2012 09/06/2020 Overview: 08/17/2013She had preeclampsia with her first and last and was induced due to PIH with her2nd at 37w5d. 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 Pt. born with congenital hip dysplasia. Pt's father has MTHFR mutation. Her paternal Uncles both have Antiphospholipid Antibody Syndrome. Pt states she had genetic testing in the past, which was negative for any bleeding disorders.The father of the baby's second cousin has autism. History of depression 05/14/2012 08/10/2013 Overview: 05/14/2012Pt states she has a history of depression that was never diagnosed. She states the depression started at age 13 after her brother . She has never been on medication. Discussed increased risks of depression during and and importance of reporting the development or worsening of symptoms should they occur. Pt states she had suicidal thoughts in the past, but never had a plan. She denies any suicidal thoughts since October 2010. History of anesthesia complications 05/14/2012 03/28/2014 Overview: 05/14/2012Pt states she had an anaphylactic reaction to drugs that were given to sedate her during her eye surgery. She denies any knowledge of problems with sedation or anesthesia during any other surgeries. She is unsure of the name of the medication. Supervision of normal first 05/01/2010 11/14/2010 documented as of this encounter (statuses as of 07/01/2022) [facility]2020 History of Past illness Narrative* Problem Noted Date Resolved Date Positive GBS test 07/28/2020 09/06/2020 BV (bacterial vaginosis) 06/16/2020 020 Overview: June 16, 2020 Treated. 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 Britta Hatch MD Nausea and vomiting in 01/20/2020 09/06/2020 Overview: 01/20/2020Patient is complaining of nausea and occasional vomiting in . Dietary considerations discussed . Vitamin B6 recommended. Advised patient to call/come in if she is unable to keep any food or fluids down in a 24-hour periodTKRN History of herpes genitalis 01/20/202005/2020 Overview: 08/23/20-Started GBS prophylaxis. Kim Gabriel APRN.CNM 01/20/2020. Patient has a history of genital herpes. I have discussed with her the importance of reporting any outbreaks during . TKRN Lice infestation 04/14/2019 01/26/2020 Insomnia secondary to situational depression 11/201601/26/2020 Essential hypertension, benign 04/18/2014 0 04/14/2015 Stress headache 04/18/2014 09/06/2020 Hypertension in , preeclampsia, severe, delivered 03/28/2014 04/14/2015 Hypokalemia 11/15/2013 04/14/2015 Hypersomnolence 11/12/2013 09/20/2015 Short interval between pregn ancies complicating , antepartum 08/17/2013 11/06/2013 Overview: 08/17/2013She delivered her previous child December 10, 2012. TKRN First trimester bleeding 08/17/2013 014 Overview: 08/17/2013Patient is unsure of the date of her last menstrual period. She had some brown spotting yesterday. She denies any spotting today. She denies any recent intercourse prior to the spotting. She denies any pain. She states that she is unconcerned regarding the spotting because she had this with a prior . Discussed the spotting in with Dr. Keerthi Chandler. Patient to call/come in if she develops any further bleeding, the development of pain, or PRN problems. An ultrasound was ordered for uncertain dates and first trimester spotting. 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 She states she has irregular menses every 28-56 days. She is 7 weeks 1 day by dates. She states she has felt movement for the past 3-[address] Britta Hatch ordered an ultrasound for uncertain dates. History of delivery, currently 05/14/2012 03/28/2014 Overview: 07/21/12 - counseled again extensively on progesterone, pt declines - KK 05/26 - needs baseline cervical length, counseled extensively on importance of progesterone injections, pt is considering this - KK 08/17/2013Patient delivered her first child at 35 weeks due to premature rupture of membranes. She was counseled regarding Progesterone her last , but declined. She delivered her last child at 37w5d. TKRN 01/20/2020Last 2 pregnancies delivered at term. TKRN Hx of preeclampsia, prior , currently p regnant 05/14/2012 09/06/2020 Overview: 08/17/2013She had preeclampsia with her first and last and was induced due to PIH with her2nd at 37w5d. 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 Pt. born with congenital hip dysplasia. Pt's father has MTHFR mutation. Her paternal Uncles both have Antiphospholipid Antibody Syndrome. Pt states she had genetic testing in the past, which was negative for any bleeding disorders.The father of the baby's second cousin has autism. History of depression 05/14/2012 08/10/2013 Overview: 05/14/2012Pt states she has a history of depression that was never diagnosed. She states the depression started at age 13 after her brother . She has never been on medication. Discussed increased risks of depression during and and importance of reporting the development or worsening of symptoms should they occur. Pt states she had suicidal thoughts in the past, but never had a plan. She denies any suicidal thoughts since October 2010. History of anesthesia complications 05/14/2012 03/28/2014 Overview: 05/14/2012Pt states she had an anaphylactic reaction to drugs that were given to sedate her during her eye surgery. She denies any knowledge of problems with sedation or anesthesia during any other surgeries. She is unsure of the name of the medication. Supervision of normal first 05/01/2010 11/14/2010 documented as of this encounter (statuses as of 07/02/2022) [facility] History of Past illness Narrative* Problem Noted Date Resolved Date Positive GBS test 07/28/2020 09/06/2020 BV (bacterial vaginosis) 06/16/2020 020 Overview: June 16, 2020 Treated. 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 Britta Hatch MD Nausea and vomiting in 01/20/2020 09/06/2020 Overview: 01/20/2020Patient is complaining of nausea and occasional vomiting in . Dietary considerations discussed . Vitamin B6 recommended. Advised patient to call/come in if she is unable to keep any food or fluids down in a 24-hour periodTKRN History of herpes genitalis 01/20/2020 05/2020 Overview: 08/23/20-Started GBS prophylaxis. Kim Gabriel APRN.CNM 01/20/2020. Patient has a history of genital herpes. I have discussed with her the importance of reporting any outbreaks during . TKRN Lice infestation 04/14/2019 01/26/2020 Insomnia secondary to situational depression 11/201601/26/2020 Essential hypertension, benign 04/18/2014 0 04/14/2015 Stress headache 04/18/2014 09/06/2020 Hypertension in , preeclampsia, severe, delivered 03/28/2014 04/14/2015 Hypokalemia 11/15/2013 04/14/2015 Hypersomnolence 11/12/2013 09/20/2015 Short interval between pregn ancies complicating , antepartum 08/17/2013 11/06/2013 Overview: 08/17/2013Krissy delivered her previous child December 10, 2012. TKRN First trimester bleeding 08/17/2013 014 Overview: 08/17/2013Patient is unsure of the date of her last menstrual period. She had some brown spotting yesterday. She denies any spotting today. She denies any recent intercourse prior to the spotting. She denies any pain. She states that she is unconcerned regarding the spotting because she had this with a prior . Discussed the spotting in with Dr. Keerthi Chandler. Patient to call/come in if she develops any further bleeding, the development of pain, or PRN problems. An ultrasound was ordered for uncertain dates and first trimester spotting. 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 She states she has irregular menses every 28-56 days. She is 7 weeks 1 day by dates. She states she has felt movement for the past 3-[address] Britta Hatch ordered an ultrasound for uncertain dates. History of delivery, currently 05/14/2012 03/28/2014 Overview: 07/21/12 - counseled again extensively on progesterone, pt declines - KK 05/26 - needs baseline cervical length, counseled extensively on importance of progesterone injections, pt is considering this - KK 08/17/2013Patient delivered her first child at 35 weeks due to premature rupture of membranes. She was counseled regarding Progesterone her last , but declined. She delivered her last child at 37w5d. TKRN 01/20/2020Last 2 pregnancies delivered at term. TKRN Hx of preeclampsia, prior , currently p regnant 05/14/2012 09/06/2020 Overview: 08/17/2013She had preeclampsia with her first and last and was induced due to PIH with her2nd at 37w5d. 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 Pt. born with congenital hip dysplasia. Pt's father has MTHFR mutation. Her paternal Uncles both have Antiphospholipid Antibody Syndrome. Pt states she had genetic testing in the past, which was negative for any bleeding disorders.The father of the baby's second cousin has autism. History of depression 05/14/2012 08/10/2013 Overview: 05/14/2012Pt states she has a history of depression that was never diagnosed. She states the depression started at age 13 after her brother . She has never been on medication. Discussed increased risks of depression during and and importance of reporting the development or worsening of symptoms should they occur. Pt states she had suicidal thoughts in the past, but never had a plan. She denies any suicidal thoughts since October 2010. History of anesthesia complications 05/14/2012 03/28/2014 Overview: 05/14/2012Pt states she had an anaphylactic reaction to drugs that were given to sedate her during her eye surgery. She denies any knowledge of problems with sedation or anesthesia during any other surgeries. She is unsure of the name of the medication. Supervision of normal first 05/01/2010 11/14/2010 documented as of this encounter (statuses as of 07/04/2022) [facility] History of Past illness Narrative* Problem Noted Date Resolved Date Positive GBS test 07/28/2020 09/06/2020 BV (bacterial vaginosis) 06/16/2020 020 Overview: June 16, 2020 Treated. 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 Britta Hatch MD Nausea and vomiting in 01/20/2020 09/06/2020 Overview: 01/20/2020Patient is complaining of nausea and occasional vomiting in . Dietary considerations discussed . Vitamin B6 recommended. Advised patient to call/come in if she is unable to keep any food or fluids down in a 24-hour periodTKRN History of herpes genitalis 01/20/202005/2020 Overview: 08/23/20-Started GBS prophylaxis. Kim Gabriel APRN.CNLara 01/20/2020. Patient has a history of genital herpes. I have discussed with her the importance of reporting any outbreaks during . TKRN Lice infestation 04/14/2019 01/26/2020 Insomnia secondary to situational depression 11/201601/26/2020 Essential hypertension, benign 04/18/2014 0 04/14/2015 Stress headache 04/18/2014 09/06/2020 Hypertension in , preeclampsia, severe, delivered 03/28/2014 04/14/2015 Hypokalemia 11/15/2013 04/14/2015 Hypersomnolence 11/12/2013 09/20/2015 Short interval between pregn ancies complicating , antepartum 08/17/2013 11/06/2013 Overview: 08/17/2013She delivered her previous child December 10, 2012. TKRN First trimester bleeding 08/17/2013 014 Overview: 08/17/2013Patient is unsure of the date of her last menstrual period. She had some brown spotting yesterday. She denies any spotting today. She denies any recent intercourse prior to the spotting. She denies any pain. She states that she is unconcerned regarding the spotting because she had this with a prior . Discussed the spotting in with Dr. Keerthi Chandler. Patient to call/come in if she develops any further bleeding, the development of pain, or PRN problems. An ultrasound was ordered for uncertain dates and first trimester spotting. 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 She states she has irregular menses every 28-56 days. She is 7 weeks 1 day by dates. She states she has felt movement for the past 3-[address] Britta Hatch ordered an ultrasound for uncertain dates. History of delivery, currently 05/14/2012 03/28/2014 Overview: 07/21/12 - counseled again extensively on progesterone, pt declines - KK 05/26 - needs baseline cervical length, counseled extensively on importance of progesterone injections, pt is considering this - KK 08/17/2013Patient delivered her first child at 35 weeks due to premature rupture of membranes. She was counseled regarding Progesterone her last , but declined. She delivered her last child at 37w5d. TKRN 01/20/2020Last 2 pregnancies delivered at term. TKRN Hx of preeclampsia, prior , currently p regnant 05/14/2012 09/06/2020 Overview: 08/17/2013She had preeclampsia with her first and last and was induced due to PIH with her2nd at 37w5d. 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 Pt. born with congenital hip dysplasia. Pt's father has MTHFR mutation. Her paternal Uncles both have Antiphospholipid Antibody Syndrome. Pt states she had genetic testing in the past, which was negative for any bleeding disorders.The father of the baby's second cousin has autism. History of depression 05/14/2012 08/10/2013 Overview: 05/14/2012Pt states she has a history of depression that was never diagnosed. She states the depression started at age 13 after her brother . She has never been on medication. Discussed increased risks of depression during and and importance of reporting the development or worsening of symptoms should they occur. Pt states she had suicidal thoughts in the past, but never had a plan. She denies any suicidal thoughts since October 2010. History of anesthesia complications 05/14/2012 03/28/2014 Overview: 05/14/2012Pt states she had an anaphylactic reaction to drugs that were given to sedate her during her eye surgery. She denies any knowledge of problems with sedation or anesthesia during any other surgeries. She is unsure of the name of the medication. Supervision of normal first 05/01/2010 11/14/2010 documented as of this encounter (statuses as of 07/04/2022) [facility] History of Past illness Narrative* Problem Noted Date Resolved Date Positive GBS test 07/28/2020 09/06/2020 BV (bacterial vaginosis) 06/16/2020 020 Overview: June 16, 2020 Treated. 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 Britta Hatch MD Nausea and vomiting in 01/20/2020 09/06/2020 Overview: 01/20/2020Patient is complaining of nausea and occasional vomiting in . Dietary considerations discussed . Vitamin B6 recommended. Advised patient to call/come in if she is unable to keep any food or fluids down in a 24-hour periodTKRN History of herpes genitalis 01/20/202005/2020 Overview: 08/23/20-Started GBS prophylaxis. Kim Gabriel APRN.CNM 01/20/2020. Patient has a history of genital herpes. I have discussed with her the importance of reporting any outbreaks during . TKRN Lice infestation 04/14/2019 01/26/2020 Insomnia secondary to situational depression 11/201601/26/2020 Essential hypertension, benign 04/18/2014 0 04/14/2015 Stress headache 04/18/2014 09/06/2020 Hypertension in , preeclampsia, severe, delivered 03/28/2014 04/14/2015 Hypokalemia 11/15/2013 04/14/2015 Hypersomnolence 11/12/2013 09/20/2015 Short interval between pregn ancies complicating , antepartum 08/17/2013 11/06/2013 Overview: 08/17/2013She delivered her previous child December 10, 2012. TKRN First trimester bleeding 08/17/2013 014 Overview: 08/17/2013Patient is unsure of the date of her last menstrual period. She had some brown spotting yesterday. She denies any spotting today. She denies any recent intercourse prior to the spotting. She denies any pain. She states that she is unconcerned regarding the spotting because she had this with a prior . Discussed the spotting in with Dr. Keerthi Chandler. Patient to call/come in if she develops any further bleeding, the development of pain, or PRN problems. An ultrasound was ordered for uncertain dates and first trimester spotting. 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 She states she has irregular menses every 28-56 days. She is 7 weeks 1 day by dates. She states she has felt movement for the past 3-[address] Britta Hatch ordered an ultrasound for uncertain dates. History of delivery, currently 05/14/2012 03/28/2014 Overview: 07/21/12 - counseled again extensively on progesterone, pt declines - KK 05/26 - needs baseline cervical length, counseled extensively on importance of progesterone injections, pt is considering this - KK 08/17/2013Patient delivered her first child at 35 weeks due to premature rupture of membranes. She was counseled regarding Progesterone her last , but declined. She delivered her last child at 37w5d. TKRN 01/20/2020Last 2 pregnancies delivered at term. TKRN Hx of preeclampsia, prior , currently p regnant 05/14/2012 09/06/2020 Overview: 08/17/2013She had preeclampsia with her first and last and was induced due to PIH with her2nd at 37w5d. 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 Pt. born with congenital hip dysplasia. Pt's father has MTHFR mutation. Her paternal Uncles both have Antiphospholipid Antibody Syndrome. Pt states she had genetic testing in the past, which was negative for any bleeding disorders.The father of the baby's second cousin has autism. History of depression 05/14/2012 08/10/2013 Overview: 05/14/2012Pt states she has a history of depression that was never diagnosed. She states the depression started at age 13 after her brother . She has never been on medication. Discussed increased risks of depression during and and importance of reporting the development or worsening of symptoms should they occur. Pt states she had suicidal thoughts in the past, but never had a plan. She denies any suicidal thoughts since October 2010. History of anesthesia complications 05/14/2012 03/28/2014 Overview: 05/14/2012Pt states she had an anaphylactic reaction to drugs that were given to sedate her during her eye surgery. She denies any knowledge of problems with sedation or anesthesia during any other surgeries. She is unsure of the name of the medication. Supervision of normal first 05/01/2010 11/14/2010 documented as of this encounter (statuses as of 07/05/2022) [facility] History of Past illness Narrative* Problem Noted Date Resolved Date Positive GBS test 07/28/2020 09/06/2020 BV (bacterial vaginosis) 06/16/2020 020 Overview: June 16, 2020 Treated. 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 Britta Hatch MD Nausea and vomiting in 01/20/2020 09/06/2020 Overview: 01/20/2020Patient is complaining of nausea and occasional vomiting in . Dietary considerations discussed . Vitamin B6 recommended. Advised patient to call/come in if she is unable to keep any food or fluids down in a 24-hour periodTKRN History of herpes genitalis 01/20/202005/2020 Overview: 08/23/20-Started GBS prophylaxis. Kim Gabriel APRN.CNM 01/20/2020. Patient has a history of genital herpes. I have discussed with her the importance of reporting any outbreaks during . TKRN Lice infestation 04/14/2019 01/26/2020 Insomnia secondary to situational depression 11/201601/26/2020 Essential hypertension, benign 04/18/2014 0 04/14/2015 Stress headache 04/18/2014 09/06/2020 Hypertension in , preeclampsia, severe, delivered 03/28/2014 04/14/2015 Hypokalemia 11/15/2013 04/14/2015 Hypersomnolence 11/12/2013 09/20/2015 Short interval between pregn ancies complicating , antepartum 08/17/2013 11/06/2013 Overview: 08/17/2013Krissy delivered her previous child December 10, 2012. TKRN First trimester bleeding 08/17/2013 014 Overview: 08/17/2013Patient is unsure of the date of her last menstrual period. She had some brown spotting yesterday. She denies any spotting today. She denies any recent intercourse prior to the spotting. She denies any pain. She states that she is unconcerned regarding the spotting because she had this with a prior . Discussed the spotting in with Dr. Keerthi Chandler. Patient to call/come in if she develops any further bleeding, the development of pain, or PRN problems. An ultrasound was ordered for uncertain dates and first trimester spotting. 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 She states she has irregular menses every 28-56 days. She is 7 weeks 1 day by dates. She states she has felt movement for the past 3-[address] Britta Hatch ordered an ultrasound for uncertain dates. History of delivery, currently 05/14/2012 03/28/2014 Overview: 07/21/12 - counseled again extensively on progesterone, pt declines - KK 05/26 - needs baseline cervical length, counseled extensively on importance of progesterone injections, pt is considering this - KK 08/17/2013Patient delivered her first child at 35 weeks due to premature rupture of membranes. She was counseled regarding Progesterone her last , but declined. She delivered her last child at 37w5d. TKRN 01/20/2020Last 2 pregnancies delivered at term. TKRN Hx of preeclampsia, prior , currently p regnant 05/14/2012 09/06/2020 Overview: 08/17/2013She had preeclampsia with her first and last and was induced due to PIH with her2nd at 37w5d. 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 Pt. born with congenital hip dysplasia. Pt's father has MTHFR mutation. Her paternal Uncles both have Antiphospholipid Antibody Syndrome. Pt states she had genetic testing in the past, which was negative for any bleeding disorders.The father of the baby's second cousin has autism. History of depression 05/14/2012 08/10/2013 Overview: 05/14/2012Pt states she has a history of depression that was never diagnosed. She states the depression started at age 13 after her brother . She has never been on medication. Discussed increased risks of depression during and and importance of reporting the development or worsening of symptoms should they occur. Pt states she had suicidal thoughts in the past, but never had a plan. She denies any suicidal thoughts since October 2010. History of anesthesia complications 05/14/2012 03/28/2014 Overview: 05/14/2012Pt states she had an anaphylactic reaction to drugs that were given to sedate her during her eye surgery. She denies any knowledge of problems with sedation or anesthesia during any other surgeries. She is unsure of the name of the medication. Supervision of normal first 05/01/2010 11/14/2010 documented as of this encounter (statuses as of 07/06/2022) [facility] History of Past illness Narrative* Problem Noted Date Resolved Date Positive GBS test 07/28/2020 09/06/2020 BV (bacterial vaginosis) 06/16/2020 020 Overview: June 16, 2020 Treated. 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 Britta Hatch MD Nausea and vomiting in 01/20/2020 09/06/2020 Overview: 01/20/2020Patient is complaining of nausea and occasional vomiting in . Dietary considerations discussed . Vitamin B6 recommended. Advised patient to call/come in if she is unable to keep any food or fluids down in a 24-hour periodTKRN History of herpes genitalis 01/20/202005/2020 Overview: 08/23/20-Started GBS prophylaxis. Kim Gabriel APRN.CNM 01/20/2020. Patient has a history of genital herpes. I have discussed with her the importance of reporting any outbreaks during . TKRN Lice infestation 04/14/2019 01/26/2020 Insomnia secondary to situational depression 11/201601/26/2020 Essential hypertension, benign 04/18/2014 0 04/14/2015 Stress headache 04/18/2014 09/06/2020 Hypertension in , preeclampsia, severe, delivered 03/28/2014 04/14/2015 Hypokalemia 11/15/2013 04/14/2015 Hypersomnolence 11/12/2013 09/20/2015 Short interval between pregn ancies complicating , antepartum 08/17/2013 11/06/2013 Overview: 08/17/2013She delivered her previous child December 10, 2012. TKRN First trimester bleeding 08/17/2013 014 Overview: 08/17/2013Patient is unsure of the date of her last menstrual period. She had some brown spotting yesterday. She denies any spotting today. She denies any recent intercourse prior to the spotting. She denies any pain. She states that she is unconcerned regarding the spotting because she had this with a prior . Discussed the spotting in with Dr. Keerthi Chandler. Patient to call/come in if she develops any further bleeding, the development of pain, or PRN problems. An ultrasound was ordered for uncertain dates and first trimester spotting. 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 She states she has irregular menses every 28-56 days. She is 7 weeks 1 day by dates. She states she has felt movement for the past 3-[address] Britta Hatch ordered an ultrasound for uncertain dates. History of delivery, currently 05/14/2012 03/28/2014 Overview: 07/21/12 - counseled again extensively on progesterone, pt declines - KK 05/26 - needs baseline cervical length, counseled extensively on importance of progesterone injections, pt is considering this - KK 08/17/2013Patient delivered her first child at 35 weeks due to premature rupture of membranes. She was counseled regarding Progesterone her last , but declined. She delivered her last child at 37w5d. TKRN 01/20/2020Last 2 pregnancies delivered at term. TKRN Hx of preeclampsia, prior , currently p regnant 05/14/2012 09/06/2020 Overview: 08/17/2013She had preeclampsia with her first and last and was induced due to PIH with her2nd at 37w5d. 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 Pt. born with congenital hip dysplasia. Pt's father has MTHFR mutation. Her paternal Uncles both have Antiphospholipid Antibody Syndrome. Pt states she had genetic testing in the past, which was negative for any bleeding disorders.The father of the baby's second cousin has autism. History of depression 05/14/2012 08/10/2013 Overview: 05/14/2012Pt states she has a history of depression that was never diagnosed. She states the depression started at age 13 after her brother . She has never been on medication. Discussed increased risks of depression during and and importance of reporting the development or worsening of symptoms should they occur. Pt states she had suicidal thoughts in the past, but never had a plan. She denies any suicidal thoughts since October 2010. History of anesthesia complications 05/14/2012 03/28/2014 Overview: 05/14/2012Pt states she had an anaphylactic reaction to drugs that were given to sedate her during her eye surgery. She denies any knowledge of problems with sedation or anesthesia during any other surgeries. She is unsure of the name of the medication. Supervision of normal first 05/01/2010 11/14/2010 documented as of this encounter (statuses as of 07/11/2022) [facility] History of Past illness Narrative* Problem Noted Date Resolved Date Positive GBS test 07/28/2020 09/06/2020 BV (bacterial vaginosis) 06/16/2020 020 Overview: June 16, 2020 Treated. 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 Britta Hatch MD Nausea and vomiting in 01/20/2020 09/06/2020 Overview: 01/20/2020Patient is complaining of nausea and occasional vomiting in . Dietary considerations discussed . Vitamin B6 recommended. Advised patient to call/come in if she is unable to keep any food or fluids down in a 24-hour periodTKRN History of herpes genitalis 01/20/202005/2020 Overview: 08/23/20-Started GBS prophylaxis. Kim Gabriel APRN.CNM 01/20/2020. Patient has a history of genital herpes. I have discussed with her the importance of reporting any outbreaks during . TKRN Lice infestation 04/14/2019 01/26/2020 Insomnia secondary to situational depression 11/201601/26/2020 Essential hypertension, benign 04/18/2014 0 04/14/2015 Stress headache 04/18/2014 09/06/2020 Hypertension in , preeclampsia, severe, delivered 03/28/2014 04/14/2015 Hypokalemia 11/15/2013 04/14/2015 Hypersomnolence 11/12/2013 09/20/2015 Short interval between pregn ancies complicating , antepartum 08/17/2013 11/06/2013 Overview: 08/17/2013She delivered her previous child December 10, 2012. TKRN First trimester bleeding 08/17/2013 014 Overview: 08/17/2013Patient is unsure of the date of her last menstrual period. She had some brown spotting yesterday. She denies any spotting today. She denies any recent intercourse prior to the spotting. She denies any pain. She states that she is unconcerned regarding the spotting because she had this with a prior . Discussed the spotting in with Dr. Keerthi Chandler. Patient to call/come in if she develops any further bleeding, the development of pain, or PRN problems. An ultrasound was ordered for uncertain dates and first trimester spotting. 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 She states she has irregular menses every 28-56 days. She is 7 weeks 1 day by dates. She states she has felt movement for the past 3-[address] Britta Hatch ordered an ultrasound for uncertain dates. History of delivery, currently 05/14/2012 03/28/2014 Overview: 07/21/12 - counseled again extensively on progesterone, pt declines - KK 05/26 - needs baseline cervical length, counseled extensively on importance of progesterone injections, pt is considering this - KK 08/17/2013Patient delivered her first child at 35 weeks due to premature rupture of membranes. She was counseled regarding Progesterone her last , but declined. She delivered her last child at 37w5d. TKRN 01/20/2020Last 2 pregnancies delivered at term. TKRN Hx of preeclampsia, prior , currently p regnant 05/14/2012 09/06/2020 Overview: 08/17/2013She had preeclampsia with her first and last and was induced due to PIH with her2nd at 37w5d. 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 Pt. born with congenital hip dysplasia. Pt's father has MTHFR mutation. Her paternal Uncles both have Antiphospholipid Antibody Syndrome. Pt states she had genetic testing in the past, which was negative for any bleeding disorders.The father of the baby's second cousin has autism. History of depression 05/14/2012 08/10/2013 Overview: 05/14/2012Pt states she has a history of depression that was never diagnosed. She states the depression started at age 13 after her brother . She has never been on medication. Discussed increased risks of depression during and and importance of reporting the development or worsening of symptoms should they occur. Pt states she had suicidal thoughts in the past, but never had a plan. She denies any suicidal thoughts since October 2010. History of anesthesia complications 05/14/2012 03/28/2014 Overview: 05/14/2012Pt states she had an anaphylactic reaction to drugs that were given to sedate her during her eye surgery. She denies any knowledge of problems with sedation or anesthesia during any other surgeries. She is unsure of the name of the medication. Supervision of normal first 05/01/2010 11/14/2010 documented as of this encounter (statuses as of 07/26/2022) [facility] History of Past illness Narrative* Problem Noted Date Resolved Date Positive GBS test 07/28/2020 09/06/2020 BV (bacterial vaginosis) 06/16/2020 020 Overview: June 16, 2020 Treated. 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 Britta Hatch MD Nausea and vomiting in 01/20/2020 09/06/2020 Overview: 01/20/2020Patient is complaining of nausea and occasional vomiting in . Dietary considerations discussed . Vitamin B6 recommended. Advised patient to call/come in if she is unable to keep any food or fluids down in a 24-hour periodTKRN History of herpes genitalis 01/20/202005/2020 Overview: 08/23/20-Started GBS prophylaxis. Kim Gabriel APRN.CNM 01/20/2020. Patient has a history of genital herpes. I have discussed with her the importance of reporting any outbreaks during . TKRN Lice infestation 04/14/2019 01/26/2020 Insomnia secondary to situational depression 11/201601/26/2020 Essential hypertension, benign 04/18/2014 0 04/14/2015 Stress headache 04/18/2014 09/06/2020 Hypertension in , preeclampsia, severe, delivered 03/28/2014 04/14/2015 Hypokalemia 11/15/2013 04/14/2015 Hypersomnolence 11/12/2013 09/20/2015 Short interval between pregn ancies complicating , antepartum 08/17/2013 11/06/2013 Overview: 08/17/2013She delivered her previous child December 10, 2012. TKRN First trimester bleeding 08/17/2013 014 Overview: 08/17/2013Patient is unsure of the date of her last menstrual period. She had some brown spotting yesterday. She denies any spotting today. She denies any recent intercourse prior to the spotting. She denies any pain. She states that she is unconcerned regarding the spotting because she had this with a prior . Discussed the spotting in with Dr. Keerthi Chandler. Patient to call/come in if she develops any further bleeding, the development of pain, or PRN problems. An ultrasound was ordered for uncertain dates and first trimester spotting. 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 She states she has irregular menses every 28-56 days. She is 7 weeks 1 day by dates. She states she has felt movement for the past 3-[address] Britta Hatch ordered an ultrasound for uncertain dates. History of delivery, currently 05/14/2012 03/28/2014 Overview: 07/21/12 - counseled again extensively on progesterone, pt declines - KK 05/26 - needs baseline cervical length, counseled extensively on importance of progesterone injections, pt is considering this - KK 08/17/2013Patient delivered her first child at 35 weeks due to premature rupture of membranes. She was counseled regarding Progesterone her last , but declined. She delivered her last child at 37w5d. TKRN 01/20/2020Last 2 pregnancies delivered at term. TKRN Hx of preeclampsia, prior , currently p regnant 05/14/2012 09/06/2020 Overview: 08/17/2013She had preeclampsia with her first and last and was induced due to PIH with her2nd at 37w5d. 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 Pt. born with congenital hip dysplasia. Pt's father has MTHFR mutation. Her paternal Uncles both have Antiphospholipid Antibody Syndrome. Pt states she had genetic testing in the past, which was negative for any bleeding disorders.The father of the baby's second cousin has autism. History of depression 05/14/2012 08/10/2013 Overview: 05/14/2012Pt states she has a history of depression that was never diagnosed. She states the depression started at age 13 after her brother . She has never been on medication. Discussed increased risks of depression during and and importance of reporting the development or worsening of symptoms should they occur. Pt states she had suicidal thoughts in the past, but never had a plan. She denies any suicidal thoughts since October 2010. History of anesthesia complications 05/14/2012 03/28/2014 Overview: 05/14/2012Pt states she had an anaphylactic reaction to drugs that were given to sedate her during her eye surgery. She denies any knowledge of problems with sedation or anesthesia during any other surgeries. She is unsure of the name of the medication. Supervision of normal first 05/01/2010 11/14/2010 documented as of this encounter (statuses as of 07/29/2022) [facility] History of Past illness Narrative* Problem Noted Date Resolved Date Positive GBS test 07/28/2020 09/06/2020 BV (bacterial vaginosis) 06/16/2020 020 Overview: June 16, 2020 Treated. 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 Britta Hatch MD Nausea and vomiting in 01/20/2020 09/06/2020 Overview: 01/20/2020Patient is complaining of nausea and occasional vomiting in . Dietary considerations discussed . Vitamin B6 recommended. Advised patient to call/come in if she is unable to keep any food or fluids down in a 24-hour periodTKRN History of herpes genitalis 01/20/202005/2020 Overview: 08/23/20-Started GBS prophylaxis. Kim Gabriel APRN.CNM 01/20/2020. Patient has a history of genital herpes. I have discussed with her the importance of reporting any outbreaks during . TKRN Lice infestation 04/14/2019 01/26/2020 Insomnia secondary to situational depression 11/201601/26/2020 Essential hypertension, benign 04/18/2014 0 04/14/2015 Stress headache 04/18/2014 09/06/2020 Hypertension in , preeclampsia, severe, delivered 03/28/2014 04/14/2015 Hypokalemia 11/15/2013 04/14/2015 Hypersomnolence 11/12/2013 09/20/2015 Short interval between pregn ancies complicating , antepartum 08/17/2013 11/06/2013 Overview: 08/17/2013She delivered her previous child December 10, 2012. TKRN First trimester bleeding 08/17/2013 014 Overview: 08/17/2013Patient is unsure of the date of her last menstrual period. She had some brown spotting yesterday. She denies any spotting today. She denies any recent intercourse prior to the spotting. She denies any pain. She states that she is unconcerned regarding the spotting because she had this with a prior . Discussed the spotting in with Dr. Keerthi Chandler. Patient to call/come in if she develops any further bleeding, the development of pain, or PRN problems. An ultrasound was ordered for uncertain dates and first trimester spotting. 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 She states she has irregular menses every 28-56 days. She is 7 weeks 1 day by dates. She states she has felt movement for the past 3-[address] Britta Hatch ordered an ultrasound for uncertain dates. History of delivery, currently 05/14/2012 03/28/2014 Overview: 07/21/12 - counseled again extensively on progesterone, pt declines - KK 05/26 - needs baseline cervical length, counseled extensively on importance of progesterone injections, pt is considering this - KK 08/17/2013Patient delivered her first child at 35 weeks due to premature rupture of membranes. She was counseled regarding Progesterone her last , but declined. She delivered her last child at 37w5d. TKRN 01/20/2020Last 2 pregnancies delivered at term. TKRN Hx of preeclampsia, prior , currently p regnant 05/14/2012 09/06/2020 Overview: 08/17/2013She had preeclampsia with her first and last and was induced due to PIH with her2nd at 37w5d. 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 Pt. born with congenital hip dysplasia. Pt's father has MTHFR mutation. Her paternal Uncles both have Antiphospholipid Antibody Syndrome. Pt states she had genetic testing in the past, which was negative for any bleeding disorders.The father of the baby's second cousin has autism. History of depression 05/14/2012 08/10/2013 Overview: 05/14/2012Pt states she has a history of depression that was never diagnosed. She states the depression started at age 13 after her brother . She has never been on medication. Discussed increased risks of depression during and and importance of reporting the development or worsening of symptoms should they occur. Pt states she had suicidal thoughts in the past, but never had a plan. She denies any suicidal thoughts since October 2010. History of anesthesia complications 05/14/2012 03/28/2014 Overview: 05/14/2012Pt states she had an anaphylactic reaction to drugs that were given to sedate her during her eye surgery. She denies any knowledge of problems with sedation or anesthesia during any other surgeries. She is unsure of the name of the medication. Supervision of normal first 05/01/2010 11/14/2010 documented as of this encounter (statuses as of 07/30/2022) [facility] History of Past illness Narrative* Problem Noted Date Resolved Date Positive GBS test 07/28/2020 09/06/2020 BV (bacterial vaginosis) 06/16/2020 020 Overview: June 16, 2020 Treated. 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 Britta Hatch MD Nausea and vomiting in 01/20/2020 09/06/2020 Overview: 01/20/2020Patient is complaining of nausea and occasional vomiting in . Dietary considerations discussed . Vitamin B6 recommended. Advised patient to call/come in if she is unable to keep any food or fluids down in a 24-hour periodTKRN History of herpes genitalis 01/20/2020 1205/2020 Overview: 08/23/20-Started GBS prophylaxis. Kim Gabriel APRN.CNM 01/20/2020. Patient has a history of genital herpes. I have discussed with her the importance of reporting any outbreaks during . TKRN Lice infestation 04/14/2019 01/26/2020 Insomnia secondary to situational depression 11/201601/26/2020 Essential hypertension, benign 04/18/2014 0 04/14/2015 Stress headache 04/18/2014 09/06/2020 Hypertension in , preeclampsia, severe, delivered 03/28/2014 04/14/2015 Hypokalemia 11/15/2013 04/14/2015 Hypersomnolence 11/12/2013 09/20/2015 Short interval between pregn ancies complicating , antepartum 08/17/2013 11/06/2013 Overview: 08/17/2013Krissy delivered her previous child December 10, 2012. TKRN First trimester bleeding 08/17/2013 014 Overview: 08/17/2013Patient is unsure of the date of her last menstrual period. She had some brown spotting yesterday. She denies any spotting today. She denies any recent intercourse prior to the spotting. She denies any pain. She states that she is unconcerned regarding the spotting because she had this with a prior . Discussed the spotting in with Dr. Keerthi Chandler. Patient to call/come in if she develops any further bleeding, the development of pain, or PRN problems. An ultrasound was ordered for uncertain dates and first trimester spotting. 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 She states she has irregular menses every 28-56 days. She is 7 weeks 1 day by dates. She states she has felt movement for the past 3-[address] Britta Hatch ordered an ultrasound for uncertain dates. History of delivery, currently 05/14/2012 03/28/2014 Overview: 07/21/12 - counseled again extensively on progesterone, pt declines - KK 05/26 - needs baseline cervical length, counseled extensively on importance of progesterone injections, pt is considering this - KK 08/17/2013Patient delivered her first child at 35 weeks due to premature rupture of membranes. She was counseled regarding Progesterone her last , but declined. She delivered her last child at 37w5d. TKRN 01/20/2020Last 2 pregnancies delivered at term. TKRN Hx of preeclampsia, prior , currently p regnant 05/14/2012 09/06/2020 Overview: 08/17/2013She had preeclampsia with her first and last and was induced due to PIH with her2nd at 37w5d. 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 Pt. born with congenital hip dysplasia. Pt's father has MTHFR mutation. Her paternal Uncles both have Antiphospholipid Antibody Syndrome. Pt states she had genetic testing in the past, which was negative for any bleeding disorders.The father of the baby's second cousin has autism. History of depression 05/14/2012 08/10/2013 Overview: 05/14/2012Pt states she has a history of depression that was never diagnosed. She states the depression started at age 13 after her brother . She has never been on medication. Discussed increased risks of depression during and and importance of reporting the development or worsening of symptoms should they occur. Pt states she had suicidal thoughts in the past, but never had a plan. She denies any suicidal thoughts since October 2010. History of anesthesia complications 05/14/2012 03/28/2014 Overview: 05/14/2012Pt states she had an anaphylactic reaction to drugs that were given to sedate her during her eye surgery. She denies any knowledge of problems with sedation or anesthesia during any other surgeries. She is unsure of the name of the medication. Supervision of normal first 05/01/2010 11/14/2010 documented as of this encounter (statuses as of 01/18/2023) [facility] History of Past illness Narrative* Problem Noted Date Resolved Date Positive GBS test 07/28/2020 09/06/2020 BV (bacterial vaginosis) 06/16/2020 020 Overview: June 16, 2020 Treated. 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 Britta Hatch MD Nausea and vomiting in 01/20/2020 09/06/2020 Overview: 01/20/2020Patient is complaining of nausea and occasional vomiting in . Dietary considerations discussed . Vitamin B6 recommended. Advised patient to call/come in if she is unable to keep any food or fluids down in a 24-hour periodTKRN History of herpes genitalis 01/20/202005/2020 Overview: 08/23/20-Started GBS prophylaxis. Kim Gabriel APRN.CNM 01/20/2020. Patient has a history of genital herpes. I have discussed with her the importance of reporting any outbreaks during . TKRN Lice infestation 04/14/2019 01/26/2020 Insomnia secondary to situational depression 11/201601/26/2020 Essential hypertension, benign 04/18/2014 0 04/14/2015 Stress headache 04/18/2014 09/06/2020 Hypertension in , preeclampsia, severe, delivered 03/28/2014 04/14/2015 Hypokalemia 11/15/2013 04/14/2015 Hypersomnolence 11/12/2013 09/20/2015 Short interval between pregn ancies complicating , antepartum 08/17/2013 11/06/2013 Overview: 08/17/2013She delivered her previous child December 10, 2012. TKRN First trimester bleeding 08/17/2013 014 Overview: 08/17/2013Patient is unsure of the date of her last menstrual period. She had some brown spotting yesterday. She denies any spotting today. She denies any recent intercourse prior to the spotting. She denies any pain. She states that she is unconcerned regarding the spotting because she had this with a prior . Discussed the spotting in with Dr. Keerthi Chandler. Patient to call/come in if she develops any further bleeding, the development of pain, or PRN problems. An ultrasound was ordered for uncertain dates and first trimester spotting. 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 She states she has irregular menses every 28-56 days. She is 7 weeks 1 day by dates. She states she has felt movement for the past 3-[address] Britta Hatch ordered an ultrasound for uncertain dates. History of delivery, currently 05/14/2012 03/28/2014 Overview: 07/21/12 - counseled again extensively on progesterone, pt declines - KK 05/26 - needs baseline cervical length, counseled extensively on importance of progesterone injections, pt is considering this - KK 08/17/2013Patient delivered her first child at 35 weeks due to premature rupture of membranes. She was counseled regarding Progesterone her last , but declined. She delivered her last child at 37w5d. TKRN 01/20/2020Last 2 pregnancies delivered at term. TKRN Hx of preeclampsia, prior , currently p regnant 05/14/2012 09/06/2020 Overview: 08/17/2013She had preeclampsia with her first and last and was induced due to PIH with her2nd at 37w5d. 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 Pt. born with congenital hip dysplasia. Pt's father has MTHFR mutation. Her paternal Uncles both have Antiphospholipid Antibody Syndrome. Pt states she had genetic testing in the past, which was negative for any bleeding disorders.The father of the baby's second cousin has autism. History of depression 05/14/2012 08/10/2013 Overview: 05/14/2012Pt states she has a history of depression that was never diagnosed. She states the depression started at age 13 after her brother . She has never been on medication. Discussed increased risks of depression during and and importance of reporting the development or worsening of symptoms should they occur. Pt states she had suicidal thoughts in the past, but never had a plan. She denies any suicidal thoughts since October 2010. History of anesthesia complications 05/14/2012 03/28/2014 Overview: 05/14/2012Pt states she had an anaphylactic reaction to drugs that were given to sedate her during her eye surgery. She denies any knowledge of problems with sedation or anesthesia during any other surgeries. She is unsure of the name of the medication. Supervision of normal first 05/01/2010 11/14/2010 documented as of this encounter (statuses as of 01/18/2023) [facility] History of Past illness Narrative* Problem Noted Date Resolved Date Positive GBS test 07/28/2020 09/06/2020 BV (bacterial vaginosis) 06/16/2020 020 Overview: June 16, 2020 Treated. 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 Britta Hatch MD Nausea and vomiting in 01/20/2020 09/06/2020 Overview: 01/20/2020Patient is complaining of nausea and occasional vomiting in . Dietary considerations discussed . Vitamin B6 recommended. Advised patient to call/come in if she is unable to keep any food or fluids down in a 24-hour periodTKRN Lice infestation 04/14/2019 01/26/2020 Insomnia secondary to situational depression 11/201601/26/2020 Essential hypertension, benign 04/18/2014 0 04/14/2015 Stress headache 04/18/2014 09/06/2020 Hypertension in , preeclampsia, severe, delivered 03/28/2014 04/14/2015 Hypokalemia 11/15/2013 04/14/2015 Hypersomnolence 11/12/2013 09/20/2015 Short interval between pregn ancies complicating , antepartum 08/17/2013 11/06/2013 Overview: 08/17/2013She delivered her previous child December 10, 2012. TKRN First trimester bleeding 08/17/2013 014 Overview: 08/17/2013Patient is unsure of the date of her last menstrual period. She had some brown spotting yesterday. She denies any spotting today. She denies any recent intercourse prior to the spotting. She denies any pain. She states that she is unconcerned regarding the spotting because she had this with a prior . Discussed the spotting in with Dr. Keerthi Chandler. Patient to call/come in if she develops any further bleeding, the development of pain, or PRN problems. An ultrasound was ordered for uncertain dates and first trimester spotting. 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 She states she has irregular menses every 28-56 days. She is 7 weeks 1 day by dates. She states she has felt movement for the past 3-[address] Britta Hatch ordered an ultrasound for uncertain dates. History of delivery, currently 05/14/2012 03/28/2014 Overview: 07/21/12 - counseled again extensively on progesterone, pt declines - KK 05/26 - needs baseline cervical length, counseled extensively on importance of progesterone injections, pt is considering this - KK 08/17/2013Patient delivered her first child at 35 weeks due to premature rupture of membranes. She was counseled regarding Progesterone her last , but declined. She delivered her last child at 37w5d. TKRN 01/20/2020Last 2 pregnancies delivered at term. 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 Pt. born with congenital hip dysplasia. Pt's father has MTHFR mutation. Her paternal Uncles both have Antiphospholipid Antibody Syndrome. Pt states she had genetic testing in the past, which was negative for any bleeding disorders.The father of the baby's second cousin has autism. History of anesthesia complications 05/14/2012 03/28/2014 Overview: 05/14/2012Pt states she had an anaphylactic reaction to drugs that were given to sedate her during her eye surgery. She denies any knowledge of problems with sedation or anesthesia during any other surgeries. She is unsure of the name of the medication. Supervision of normal first 05/01/2010 11/14/2010 documented as of this encounter (statuses as of 01/20/2023) [facility] History of Past illness Narrative* Problem Noted Date Resolved Date Positive GBS test 07/28/2020 09/06/2020 BV (bacterial vaginosis) 06/16/2020 020 Overview: June 16, 2020 Treated. Birtta Hatch MD GBS carrier 01/28/2020 10/02/2020 Overview: January 28, 2020 GBS in urine, not enough to treat but will need prophylaxis in . Britta Hatch MD Nausea and vomiting in 01/20/2020 09/06/2020 Overview: 01/20/2020Patient is complaining of nausea and occasional vomiting in . Dietary considerations discussed . Vitamin B6 recommended. Advised patient to call/come in if she is unable to keep any food or fluids down in a 24-hour periodTKRN Lice infestation 04/14/2019 01/26/2020 Insomnia secondary to situational depression 11/201601/26/2020 Essential hypertension, benign 04/18/2014 0 04/14/2015 Stress headache 04/18/2014 09/06/2020 Hypertension in , preeclampsia, severe, delivered 03/28/2014 04/14/2015 Hypokalemia 11/15/2013 04/14/2015 Hypersomnolence 11/12/2013 09/20/2015 Short interval between pregn ancies complicating , antepartum 08/17/2013 11/06/2013 Overview: 08/17/2013She delivered her previous child December 10, 2012. TKRN First trimester bleeding 08/17/2013 014 Overview: 08/17/2013Patient is unsure of the date of her last menstrual period. She had some brown spotting yesterday. She denies any spotting today. She denies any recent intercourse prior to the spotting. She denies any pain. She states that she is unconcerned regarding the spotting because she had this with a prior . Discussed the spotting in with Dr. Keerthi Chandler. Patient to call/come in if she develops any further bleeding, the development of pain, or PRN problems. An ultrasound was ordered for uncertain dates and first trimester spotting. 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 She states she has irregular menses every 28-56 days. She is 7 weeks 1 day by dates. She states she has felt movement for the past 3-[address] Britta Hatch ordered an ultrasound for uncertain dates. History of delivery, currently 05/14/2012 03/28/2014 Overview: 07/21/12 - counseled again extensively on progesterone, pt declines - KK 05/26 - needs baseline cervical length, counseled extensively on importance of progesterone injections, pt is considering this - KK 08/17/2013Patient delivered her first child at 35 weeks due to premature rupture of membranes. She was counseled regarding Progesterone her last , but declined. She delivered her last child at 37w5d. TKRN 01/20/2020Last 2 pregnancies delivered at term. 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 Pt. born with congenital hip dysplasia. Pt's father has MTHFR mutation. Her paternal Uncles both have Antiphospholipid Antibody Syndrome. Pt states she had genetic testing in the past, which was negative for any bleeding disorders.The father of the baby's second cousin has autism. History of anesthesia complications 05/14/2012 03/28/2014 Overview: 05/14/2012Pt states she had an anaphylactic reaction to drugs that were given to sedate her during her eye surgery. She denies any knowledge of problems with sedation or anesthesia during any other surgeries. She is unsure of the name of the medication. Supervision of normal first 05/01/2010 11/14/2010 documented as of this encounter (statuses as of 01/24/2023) [facility] History of Past illness Narrative* Problem Noted Date Resolved Date Positive GBS test 07/28/2020 09/06/2020 BV (bacterial vaginosis) 06/16/2020 020 Overview: June 16, 2020 Treated. 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 Britta Hatch MD Nausea and vomiting in 01/20/2020 09/06/2020 Overview: 01/20/2020Patient is complaining of nausea and occasional vomiting in . Dietary considerations discussed . Vitamin B6 recommended. Advised patient to call/come in if she is unable to keep any food or fluids down in a 24-hour periodTKRN Lice infestation 04/14/2019 01/26/2020 Insomnia secondary to situational depression 11/201601/26/2020 Essential hypertension, benign 04/18/2014 0 04/14/2015 Stress headache 04/18/2014 09/06/2020 Hypertension in , preeclampsia, severe, delivered 03/28/2014 04/14/2015 Hypokalemia 11/15/2013 04/14/2015 Hypersomnolence 11/12/2013 09/20/2015 Short interval between pregn ancies complicating , antepartum 08/17/2013 11/06/2013 Overview: 08/17/2013She delivered her previous child December 10, 2012. TKRN First trimester bleeding 08/17/2013 014 Overview: 08/17/2013Patient is unsure of the date of her last menstrual period. She had some brown spotting yesterday. She denies any spotting today. She denies any recent intercourse prior to the spotting. She denies any pain. She states that she is unconcerned regarding the spotting because she had this with a prior . Discussed the spotting in with Dr. Keerthi Chandler. Patient to call/come in if she develops any further bleeding, the development of pain, or PRN problems. An ultrasound was ordered for uncertain dates and first trimester spotting. 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 She states she has irregular menses every 28-56 days. She is 7 weeks 1 day by dates. She states she has felt movement for the past 3-[address] Britta Hatch ordered an ultrasound for uncertain dates. History of delivery, currently 05/14/2012 03/28/2014 Overview: 07/21/12 - counseled again extensively on progesterone, pt declines - KK 05/26 - needs baseline cervical length, counseled extensively on importance of progesterone injections, pt is considering this - KK 08/17/2013Patient delivered her first child at 35 weeks due to premature rupture of membranes. She was counseled regarding Progesterone her last , but declined. She delivered her last child at 37w5d. TKRN 01/20/2020Last 2 pregnancies delivered at term. 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 Pt. born with congenital hip dysplasia. Pt's father has MTHFR mutation. Her paternal Uncles both have Antiphospholipid Antibody Syndrome. Pt states she had genetic testing in the past, which was negative for any bleeding disorders.The father of the baby's second cousin has autism. History of anesthesia complications 05/14/2012 03/28/2014 Overview: 05/14/2012Pt states she had an anaphylactic reaction to drugs that were given to sedate her during her eye surgery. She denies any knowledge of problems with sedation or anesthesia during any other surgeries. She is unsure of the name of the medication. Supervision of normal first 05/01/2010 11/14/2010 documented as of this encounter (statuses as of 01/30/2023) [facility] History of Past illness Narrative* Problem Noted Date Resolved Date Positive GBS test 07/28/2020 09/06/2020 BV (bacterial vaginosis) 06/16/2020 020 Overview: June 16, 2020 Treated. 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 Britta Hatch MD Nausea and vomiting in 01/20/2020 09/06/2020 Overview: 01/20/2020Patient is complaining of nausea and occasional vomiting in . Dietary considerations discussed . Vitamin B6 recommended. Advised patient to call/come in if she is unable to keep any food or fluids down in a 24-hour periodTKRN Lice infestation 04/14/2019 01/26/2020 Insomnia secondary to situational depression 11/201601/26/2020 Essential hypertension, benign 04/18/2014 0 04/14/2015 Stress headache 04/18/2014 09/06/2020 Hypertension in , preeclampsia, severe, delivered 03/28/2014 04/14/2015 Hypokalemia 11/15/2013 04/14/2015 Hypersomnolence 11/12/2013 09/20/2015 Short interval between pregn ancies complicating , antepartum 08/17/2013 11/06/2013 Overview: 08/17/2013She delivered her previous child December 10, 2012. TKRN First trimester bleeding 08/17/2013 014 Overview: 08/17/2013Patient is unsure of the date of her last menstrual period. She had some brown spotting yesterday. She denies any spotting today. She denies any recent intercourse prior to the spotting. She denies any pain. She states that she is unconcerned regarding the spotting because she had this with a prior . Discussed the spotting in with Dr. Keerthi Chandler. Patient to call/come in if she develops any further bleeding, the development of pain, or PRN problems. An ultrasound was ordered for uncertain dates and first trimester spotting. 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 She states she has irregular menses every 28-56 days. She is 7 weeks 1 day by dates. She states she has felt movement for the past 3-[address] Britta Hatch ordered an ultrasound for uncertain dates. History of delivery, currently 05/14/2012 03/28/2014 Overview: 07/21/12 - counseled again extensively on progesterone, pt declines - KK 05/26 - needs baseline cervical length, counseled extensively on importance of progesterone injections, pt is considering this - KK 08/17/2013Patient delivered her first child at 35 weeks due to premature rupture of membranes. She was counseled regarding Progesterone her last , but declined. She delivered her last child at 37w5d. TKRN 01/20/2020Last 2 pregnancies delivered at term. 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 Pt. born with congenital hip dysplasia. Pt's father has MTHFR mutation. Her paternal Uncles both have Antiphospholipid Antibody Syndrome. Pt states she had genetic testing in the past, which was negative for any bleeding disorders.The father of the baby's second cousin has autism. History of anesthesia complications 05/14/2012 03/28/2014 Overview: 05/14/2012Pt states she had an anaphylactic reaction to drugs that were given to sedate her during her eye surgery. She denies any knowledge of problems with sedation or anesthesia during any other surgeries. She is unsure of the name of the medication. Supervision of normal first 05/01/2010 11/14/2010 documented as of this encounter (statuses as of 02/10/2023) [facility] History of Past illness Narrative* Problem Noted Date Resolved Date Positive GBS test 07/28/2020 09/06/2020 BV (bacterial vaginosis) 06/16/2020 020 Overview: June 16, 2020 Treated. 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 Britta Hatch MD Nausea and vomiting in 01/20/2020 09/06/2020 Overview: 01/20/2020Patient is complaining of nausea and occasional vomiting in . Dietary considerations discussed . Vitamin B6 recommended. Advised patient to call/come in if she is unable to keep any food or fluids down in a 24-hour periodTKRN Lice infestation 04/14/2019 01/26/2020 Insomnia secondary to situational depression 11/201601/26/2020 Essential hypertension, benign 04/18/2014 0 04/14/2015 Stress headache 04/18/2014 09/06/2020 Hypertension in , preeclampsia, severe, delivered 03/28/2014 04/14/2015 Hypokalemia 11/15/2013 04/14/2015 Hypersomnolence 11/12/2013 09/20/2015 Short interval between pregn ancies complicating , antepartum 08/17/2013 11/06/2013 Overview: 08/17/2013She delivered her previous child December 10, 2012. TKRN First trimester bleeding 08/17/2013 014 Overview: 08/17/2013Patient is unsure of the date of her last menstrual period. She had some brown spotting yesterday. She denies any spotting today. She denies any recent intercourse prior to the spotting. She denies any pain. She states that she is unconcerned regarding the spotting because she had this with a prior . Discussed the spotting in with Dr. Keerthi Chandler. Patient to call/come in if she develops any further bleeding, the development of pain, or PRN problems. An ultrasound was ordered for uncertain dates and first trimester spotting. 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 She states she has irregular menses every 28-56 days. She is 7 weeks 1 day by dates. She states she has felt movement for the past 3-[address] Britta Hatch ordered an ultrasound for uncertain dates. History of delivery, currently 05/14/2012 03/28/2014 Overview: 07/21/12 - counseled again extensively on progesterone, pt declines - KK 05/26 - needs baseline cervical length, counseled extensively on importance of progesterone injections, pt is considering this - KK 08/17/2013Patient delivered her first child at 35 weeks due to premature rupture of membranes. She was counseled regarding Progesterone her last , but declined. She delivered her last child at 37w5d. TKRN 01/20/2020Last 2 pregnancies delivered at term. 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 Pt. born with congenital hip dysplasia. Pt's father has MTHFR mutation. Her paternal Uncles both have Antiphospholipid Antibody Syndrome. Pt states she had genetic testing in the past, which was negative for any bleeding disorders.The father of the baby's second cousin has autism. History of anesthesia complications 05/14/2012 03/28/2014 Overview: 05/14/2012Pt states she had an anaphylactic reaction to drugs that were given to sedate her during her eye surgery. She denies any knowledge of problems with sedation or anesthesia during any other surgeries. She is unsure of the name of the medication. Supervision of normal first 05/01/2010 11/14/2010 documented as of this encounter (statuses as of 03/24/2023) [facility] Diagnosis Irregular periods/menstrual cycles- Primary Irregular menstrual cycle Intractable chronic migraine without aura and without status migrainosus Chronic migraine without aura, with intractable migraine, so stated, without mention of status migrainosus Spotting between menses Metrorrhagia [facility] Irregular periods/menstrual cycles Irregular menstrual cycle [facility] Diagnosis Suspected COVID-19 virus infection- Primary Urinary frequency Fever, unspecified fever cause [facility] Diagnosis Urinary frequency- Primary Acute pyelonephritis Acute pyelonephritis without lesion of renal medullary necrosis Nausea Nausea alone [facility] Diagnosis Acute pyelonephritis- Primary Acute pyelonephritis without lesion of renal medullary necrosis [facility] Renal insufficiency- Primary Unspecified disorder of kidney and ureter [facility] Diagnosis Nausea and vomiting, unspecified vomiting type- Primary Viral gastroenteritis Intestinal infection due to other organism, not elsewhere classified [facility] Diagnosis Supervision of high risk , antepartum- Primary Antepartum multigravida of advanced maternal age History of depression Personal history of other mental disorder History of herpes genitalis Personal history of other infectious and parasitic disease History of pre-eclampsia in prior , currently with other poor obstetric history VSD (ventricular septal defect) Ventricular septal defect History of pyloric stenosis Personal history of other diseases of digestive system [facility] Diagnosis with uncertain dates in first trimester- Primary Bleeding in early Unspecified hemorrhage in early , unspecified as to episode of care Threatened Threatened , unspecified as to episode of care AMA (advanced maternal age) multigravida 35+, first trimester 6 weeks gestation of state, incidental with uncertain dates in first trimester- Primary [facility] Diagnosis Missed - Primary Bleeding in early Unspecified hemorrhage in early , unspecified as to episode of care documented in this encounter [facility] note* Diagnosis Anxiety and depression- Primary Dysthymic disorder documented in this encounter [facility] note* Diagnosis Abnormal uterine bleeding (AUB)- Primary Uterus, adenomyosis Endometriosis of uterus Anxiety and depression Dysthymic disorder Elevated serum hCG Unspecified endocrine disorder documented in this encounter [facility] note* Diagnosis Irregular bleeding Irregular menstrual cycle documented in this encounter [facility] note* Diagnosis Encounter for supervision of high risk in first trimester, antepartum- Primary with uncertain dates in first trimester 9 weeks gestation of state, incidental Multigravida of advanced maternal age in first trimester History of pre-eclampsia Personal history of other genital system and obstetric disorders History of delivery, currently in first trimester History of depression History of herpes genitalis Personal history of other infectious and parasitic disease Nausea and vomiting during VSD (ventricular septal defect) Ventricular septal defect Family history of congenital or genetic condition Family history of congenital anomalies Family history of autism Family history of psychiatric condition History of migraine Personal history of other disorders of nervous system and sense organs Anxiety Anxiety state, unspecified documented in this encounter [facility] note* Diagnosis with uncertain dates in first trimester- [facility] Diagnostic Procedure Only (Routine) - Authorized Specialty Diagnoses / Procedures Referred By Lulú holley Referred To Contact US IMAGING Diagnoses Irregular periods/menstrual cycles Procedures US FEMALE PELVIS TRANSVAG US TRANSVAGINAL Elizabeth Juarez APRN.CNM [address] [place] [address] Us Imaging Referral ID Status Reason Start Date Expiration Date Visits Requested Visits Authorized [id number] Authorized Auto-Generat ed Referral 01/11/2022 02/03/2023 1 1 [facility] for referral (narrative)* Diagnostic Procedure Only (Routine) - Closed Specialty Diagnoses / Procedures Referred By Lulú holley Referred To Contact US IMAGING Diagnoses Irregular periods/menstrual cycles Procedures US FEMALE PELVIS TRANSVAG US TRANSVAGINAL Elizabeth Juarez APRN.CNM [address] [place] [address] Us Imaging Referral ID Status Reason Start Date Expiration Date V isits Requested Visits Authorized [id number] Closed Auto-Generate d Referral 01/11/2022 02/03/2023 1 [facility] Diagnostic Procedure Only (Routine) - Closed Specialty Diagnoses / Procedures Referred By Contac t Referred To Contact US IMAGING Diagnoses Irregular bleeding Procedures US FEMALE PELVIS TRANSVAG US TRANSVAGINAL Emily Sherwood APRN.CHROME TANNER [address] [place] [address] [place] [address] Referral ID Status Reason Start Date Expiration Date V isits Requested Visits Authorized [id number] Closed Auto-Generate d Referral 06/23/2023 07/22/2024 1 1 [facility] Summary Purpose Family History No Family History Records FoundNo Family History Records FoundNo Family History Records Found Advance Directives No Advanced Directives Records FoundDocuments on File Type Date Recorded Patient Bi Manager Expl anation Advance Directive(s) Documents on File Type Date Recorded Patient Bi Manager Expl anation Advance Directive(s) Health Concerns Infection Onset Date Last Indicated Resolved Time COVID-19 Rule-Out 06/26/2022 06/26/2022 Infection Onset Date Last Indicated Resolved Time COVID-19 Rule-Out 06/26/2022 06/26/2022 06/27/2022 5:13 AM EDT Reason for Referral Specialty Diagnoses / Procedures Referred By Contac t Referred To Contact Neurology Diagnoses History of migraine Procedures CONSULT TO NEUROLOGY OFFICE/OUTPATIENT NEW HIGH MDM 60 MINUTES Abbi Gill APRN.CHROME TANNER [address] [place] [address] Referral ID Status Reason Start Date Expiration Date Visits Requested Visits Authorized [id number] Authorized PCP Requested Referral 11/17/2023 11/16/2024 1 1 Additional Source Comments INFORMATION SOURCE (unrecogn ized section and content) DATE CREATED AUTHOR AUTHOR'S ORGANIZ ATION 03/19/2018 [facility] DATE CREATED AUTHOR AUTHOR'S ORGANIZ ATION 12/02/2023 [facility] Source Comments (unrecognize d section and content) In the event this informatio n is protected by the Federal Confidentiality of Alcohol and Drug Abuse Patient Records regulations: The Federal rules restrict any use of the information to criminally investigate or prosecute any alcohol or drug abuse patient.[facility] the event this information is protected by the Federal Confidentiality of Alcohol and Drug Abuse Patient Records regulations: The Federal rules restrict any use of the information to criminally investigate or prosecute any alcohol or drug abuse patient.[facility] the event this information is protected by the Federal Confidentiality of Alcohol and Drug Abuse Patient Records regulations: The Federal rules restrict any use of the information to criminally investigate or prosecute any alcohol or drug abuse patient.[facility] the event this information is protected by the Federal Confidentiality of Alcohol and Drug Abuse Patient Records regulations: The Federal rules restrict any use of the information to criminally investigate or prosecute any alcohol or drug abuse patient.[facility] CenterIn the event this information is protected by the Federal Confidentiality of Alcohol and Drug Abuse Patient Records regulations: The Federal rules restrict any use of the information to criminally investigate or prosecute any alcohol or drug abuse patient.[facility] CenterIn the event this information is protected by the Federal Confidentiality of Alcohol and Drug Abuse Patient Records regulations: The Federal rules restrict any use of the information to criminally investigate or prosecute any alcohol or drug abuse patient.[facility] Center[facility] the event this information is protected by the Federal Confidentiality of Alcohol and Drug Abuse Patient Records regulations: The Federal rules restrict any use of the information to criminally investigate or prosecute any alcohol or drug abuse patient.[facility] CenterIn the event this information is protected by the Federal Confidentiality of Alcohol and Drug Abuse Patient Records regulations: The Federal rules restrict any use of the information to criminally investigate or prosecute any alcohol or drug abuse patient.[facility] CenterIn the event this information is protected by the Federal Confidentiality of Alcohol and Drug Abuse Patient Records regulations: The Federal rules restrict any use of the information to criminally investigate or prosecute any alcohol or drug abuse patient.[facility] CenterIn the event this information is protected by the Federal Confidentiality of Alcohol and Drug Abuse Patient Records regulations: The Federal rules restrict any use of the information to criminally investigate or prosecute any alcohol or drug abuse patient.[facility] CenterIn the event this information is protected by the Federal Confidentiality of Alcohol and Drug Abuse Patient Records regulations: The Federal rules restrict any use of the information to criminally investigate or prosecute any alcohol or drug abuse patient.[facility] CenterIn the event this information is protected by the Federal Confidentiality of Alcohol and Drug Abuse Patient Records regulations: The Federal rules restrict any use of the information to criminally investigate or prosecute any alcohol or drug abuse patient.[facility] CenterIn the event this information is protected by the Federal Confidentiality of Alcohol and Drug Abuse Patient Records regulations: The Federal rules restrict any use of the information to criminally investigate or prosecute any alcohol or drug abuse patient.[facility] CenterIn the event this information is protected by the Federal Confidentiality of Alcohol and Drug Abuse Patient Records regulations: The Federal rules restrict any use of the information to criminally investigate or prosecute any alcohol or drug abuse patient.[facility] CenterIn the event this information is protected by the Federal Confidentiality of Alcohol and Drug Abuse Patient Records regulations: The Federal rules restrict any use of the information to criminally investigate or prosecute any alcohol or drug abuse patient.[facility] CenterIn the event this information is protected by the Federal Confidentiality of Alcohol and Drug Abuse Patient Records regulations: The Federal rules restrict any use of the information to criminally investigate or prosecute any alcohol or drug abuse patient.[facility] CenterIn the event this information is protected by the Federal Confidentiality of Alcohol and Drug Abuse Patient Records regulations: The Federal rules restrict any use of the information to criminally investigate or prosecute any alcohol or drug abuse patient.[facility] CenterIn the event this information is protected by the Federal Confidentiality of Alcohol and Drug Abuse Patient Records regulations: The Federal rules restrict any use of the information to criminally investigate or prosecute any alcohol or drug abuse patient.[facility] CenterIn the event this information is protected by the Federal Confidentiality of Alcohol and Drug Abuse Patient Records regulations: The Federal rules restrict any use of the information to criminally investigate or prosecute any alcohol or drug abuse patient.[facility] CenterIn the event this information is protected by the Federal Confidentiality of Alcohol and Drug Abuse Patient Records regulations: The Federal rules restrict any use of the information to criminally investigate or prosecute any alcohol or drug abuse patient.[facility] CenterIn the event this information is protected by the Federal Confidentiality of Alcohol and Drug Abuse Patient Records regulations: The Federal rules restrict any use of the information to criminally investigate or prosecute any alcohol or drug abuse patient.[facility] CenterIn the event this information is protected by the Federal Confidentiality of Alcohol and Drug Abuse Patient Records regulations: The Federal rules restrict any use of the information to criminally investigate or prosecute any alcohol or drug abuse patient.[facility] CenterIn the event this information is protected by the Federal Confidentiality of Alcohol and Drug Abuse Patient Records regulations: The Federal rules restrict any use of the information to criminally investigate or prosecute any alcohol or drug abuse patient.[facility] CenterIn the event this information is protected by the Federal Confidentiality of Alcohol and Drug Abuse Patient Records regulations: The Federal rules restrict any use of the information to criminally investigate or prosecute any alcohol or drug abuse patient.[facility] CenterIn the event this information is protected by the Federal Confidentiality of Alcohol and Drug Abuse Patient Records regulations: The Federal rules restrict any use of the information to criminally investigate or prosecute any alcohol or drug abuse patient.[facility] CenterIn the event this information is protected by the Federal Confidentiality of Alcohol and Drug Abuse Patient Records regulations: The Federal rules restrict any use of the information to criminally investigate or prosecute any alcohol or drug abuse patient.[facility] CenterIn the event this information is protected by the Federal Confidentiality of Alcohol and Drug Abuse Patient Records regulations: The Federal rules restrict any use of the information to criminally investigate or prosecute any alcohol or drug abuse patient.[facility] CenterIn the event this information is protected by the Federal Confidentiality of Alcohol and Drug Abuse Patient Records regulations: The Federal rules restrict any use of the information to criminally investigate or prosecute any alcohol or drug abuse patient.[facility] CenterIn the event this information is protected by the Federal Confidentiality of Alcohol and Drug Abuse Patient Records regulations: The Federal rules restrict any use of the information to criminally investigate or prosecute any alcohol or drug abuse patient.[facility] CenterIn the event this information is protected by the Federal Confidentiality of Alcohol and Drug Abuse Patient Records regulations: The Federal rules restrict any use of the information to criminally investigate or prosecute any alcohol or drug abuse patient.[facility] CenterIn the event this information is protected by the Federal Confidentiality of Alcohol and Drug Abuse Patient Records regulations: The Federal rules restrict any use of the information to criminally investigate or prosecute any alcohol or drug abuse patient.[facility] CenterIn the event this information is protected by the Federal Confidentiality of Alcohol and Drug Abuse Patient Records regulations: The Federal rules restrict any use of the information to criminally investigate or prosecute any alcohol or drug abuse patient.[facility] CenterIn the event this information is protected by the Federal Confidentiality of Alcohol and Drug Abuse Patient Records regulations: The Federal rules restrict any use of the information to criminally investigate or prosecute any alcohol or drug abuse patient.[facility] Reason for Visit (unrecogniz ed section and content) Specialty Diagnoses / Procedures Referred By Contac t 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 [address] Us Imaging Referral ID Status Reason Start Date Expiration Date V isits Requested Visits Authorized [id number] Closed Auto-Generate d Referral 01/11/2022 02/03/2023 1 1 Reason Comments Covid19 Concern Information Reason Onset Date Comments Refill Request 04/16/2022 Reason Comments Cough Cough, congestion, f ever, chills, bodyaches x 1 day Reason Comments Results Reason Comments Flu Like Symptoms Reason Comments Opened In Error Reason Onset Date Comments Transition Of Care 07/02/2022 [facility] 06/26/22- dx: Pyelonephritis Reason Comments Hospital F/U Reason Comments Patient Question Nausea Reason Comments Vomiting Reason Comments Nausea & Vomiting Symptom vomiting all night and diarrhea started last night Reason Comments Care Reason Comments Initial OB Visit Reason Onset Date Comments Letter 02/10/2023 Reason Comments Discussion Discuss ultrasound r esults Specialty Diagnoses / Procedures Referred By Contac t Referred To Contact US IMAGING Diagnoses Irregular bleeding Procedures US FEMALE PELVIS TRANSVAG US TRANSVAGINAL Emily Sherwood APRN.CHROME TANNER [address] [place] [address] [place] [address] Referral ID Status Reason Start Date Expiration Date V isits Requested Visits Authorized [id number] Closed Auto-Generate d Referral 06/23/2023 07/22/2024 1 1 Reason Comments Initial OB Visit Reason Comments [facility] Care Teams (unrecognized sec tion and content) Public Relations Player Relationship Specialty Start Date End Date Manuel Rangel MD [address] [place] [address] PCP - General Family Practice 05/14/21 Leonardo Navarrete [address] [place] [address] Physician Cardiology 01/28/19 Public Relations Player Relationship Specialty Start Date End Date Manuel Rangel MD [address] [place] [address] PCP - General Family Practice 05/14/21 Landon, Leonardo S [address] [place] [address] Physician Cardiology 01/28/19 Public Relations Player Relationship Specialty Start Date End Date Manuel Rangel MD [address] [place] [address] PCP - General Family Practice 05/14/21 Landon, Leonardo S [address] [place] [address] Physician Cardiology 01/28/19 Public Relations Player Relationship Specialty Start Date End Date Manuel Rangel MD [address] [place] [address] PCP - General Family Medicine 05/14/21 Landon, Forsan S [address] [place] [address] Physician Cardiology 01/28/19 Public Relations Player Relationship Specialty Start Date End Date Manuel Rangel MD [address] [place] [address] PCP - General Family Medicine 05/14/21 Landon, Leonardo S [address] [place] [address] Physician Cardiology 01/28/19 Public Relations Player Relationship Specialty Start Date End Date Manuel Rangel MD [address] [place] [address] PCP - General Family Medicine 05/14/21 Landon, Leonardo S [address] [place] [address] Physician Cardiology 01/28/19 Public Relations Player Relationship Specialty Start Date End Date Manuel Rangel MD [address] [place] [address] PCP - General Family Medicine 05/14/21 Landon, Leonardo S [address] [place] [address] Physician Cardiology 01/28/19 Public Relations Player Relationship Specialty Start Date End Date Manuel Rangel MD [address] [place] [address] PCP - General Family Medicine 05/14/21 Landon, Forsan S [address] [place] [address] Physician Cardiology 01/28/19 Public Relations Player Relationship Specialty Start Date End Date Manuel Rangel MD [address] [place] [address] PCP - General Family Medicine 05/14/21 Landon, Forsan S [address] [place] [address] Physician Cardiology 01/28/19 Public Relations Player Relationship Specialty Start Date End Date Manuel Rangel MD [address] [place] [address] PCP - General Family Medicine 05/14/21 Landon, Leonardo S [address] [place] [address] Physician Cardiology 01/28/19 Public Relations Player Relationship Specialty Start Date End Date Manuel Rangel MD [address] [place] [address] PCP - General Family Medicine 05/14/21 Landon, Forsan S [address] [place] [address] Physician Cardiology 01/28/19 Public Relations Player Relationship Specialty Start Date End Date Manuel Rangel MD [address] [place] [address] PCP - General Family Medicine 05/14/21 Landon, Leonardo S [address] [facility] [address] [place] [address] Physician Cardiology 01/28/19 Public Relations Player Relationship Specialty Start Date End Date Manuel Rangel MD [address] [place] [address] PCP - General Family Medicine 05/14/21 Landon, Leonardo S [address] [place] [address] Physician Cardiology 01/28/19 Public Relations Player Relationship Specialty Start Date End Date Manuel Rangel MD [address] [place] [address] PCP - General Family Medicine 05/14/21 Landon, Forsan S [address] [place] [address] Physician Cardiology 01/28/19 Public Relations Player Relationship Specialty Start Date End Date Manuel Rangel MD [address] [place] [address] PCP - General Family Medicine 05/14/21 Landon, Forsan S [address] [facility] [address] [place] [address] Physician Cardiology 01/28/19 Public Relations Player Relationship Specialty Start Date End Date Manuel Rangel MD [address] [place] [address] PCP - General Family Medicine 05/14/21 Leonardo Navarrete MD [address] [place] [address] Physician Cardiology 01/28/19 Public Relations Player Relationship Specialty Start Date End Date Manuel Rnagel MD [address] [place] [address] PCP - General Family Medicine 05/14/21 Leonardo Navarrete MD [address] [address] Physician Cardiology 01/28/19 Public Relations Player Relationship Specialty Start Date End Date Manuel Rangel MD [address] [place] [address] PCP - General Family Medicine 05/14/21 Leonardo Navarrete MD [address] [address] Physician Cardiology 01/28/19 Public Relations Player Relationship Specialty Start Date End Date Manuel Rangel MD [address] [place] [address] PCP - General Family Medicine 05/14/21 Leonardo Navarrete MD [address] [facility] [address] [address] Physician Cardiology 01/28/19 Public Relations Player Relationship Specialty Start Date End Date Manuel Rangel MD [address] [place] [address] PCP - General Family Medicine 05/14/21 Leonardo Navarrete MD [address] [address] Physician Cardiology 01/28/19 Public Relations Player Relationship Specialty Start Date End Date Manuel Rangel MD [address] [place], [place] [address] PCP - General Family Medicine 05/14/21 Leonardo Navarrete MD [address] [facility] [address] [place], [place] [id number] Physician Cardiology 01/28/19 Public Relations Player Relationship Specialty Start Date End Date Manuel Rangel MD [address] [place], [place] [id number] PCP - General Family Medicine 05/14/21 Leonardo Navarrete MD [address] [id number] Physician Cardiology 01/28/19 FOR RECORDS PERTAINING TO PATIENTS WHO ARE OR HAVE BEEN ENROLLED IN A CHEMICAL DEPENDENCY/SUBSTANCEABUSE PROGRAM, SOME INFORMATION MAY BE OMITTED. This clinical summary was aggregated from multiple sources. Caution should be exercised in using it in the provision of clinical care. This summary normalizes information from multiple sources, and as a consequence, information in this document may materially change the coding, format and clinical context of patient data. In addition, data may be omitted in some cases. CLINICAL DECISIONS SHOULD BE BASED ON THE PRIMARY CLINICAL RECORDS. [employer] provides no warranty or guarantee of the accuracy or completeness of information in this document.
[2023-12-04 23:34] VITALS: BP 136/94; PULSE 65; RESP 12; TEMP 36.6; O2SAT 97
== END 2023-12-04 23:35 | disposition home or self-care (01) ==
LOC: ED 23:30
PROVIDERS: Emergency Provider Emergency Medicine; PCP Family Medicine; Visit Provider Emergency Medicine
DX: O99.891 Other specified diseases and conditions complicating pregnancy (principal); O9A.211 Injury, poisoning and certain other consequences of external causes complicating pregnancy, first trimester; Z3A.12 12 weeks gestation of pregnancy; O09.521 Supervision of elderly multigravida, first trimester; R03.0 Elevated blood-pressure reading, without diagnosis of hypertension
CPT/HCPCS: 99282

== ENCOUNTER 2024-05-17 11:15 | Outpatient (CLI) | payer MEDICAID, SELFPAY ==
[2024-05-17] VITALS (14 sets, daily range): BP systolic 128–130; BP diastolic 85–86; PULSE 96–122; RESP 18; TEMP 37.1; O2SAT 96–100; BMI 26.9
[2024-05-17] MEDS: Lactated Ringers 1,000 ML 999 ML IV (13:30)
[2024-05-17 13:49] LABS: Absolute Lymphocyte Count 0.79 X10^3/uL (0.83-4.51); Absolute Neutrophil Count 18.9 X10^3/uL (2.0-7.7); Basophil# 0.03 X10^3/uL; Basophil% 0.1 % (0-1); Eosinophil# 0.01 X10^3/uL; Hematocrit 38.2 % (37-47); Hemoglobin 13.5 g/dL (12.0-15.0); Lymphocyte # 0.79 X10^3/ul (0.83-4.51); Lymphocyte % 3.8 % (19-41); Mean Corp Hgb Conc 35.3 g/dL (32-36); Mean Corpuscular Volume 87.6 fL (81-99); Mean Platelet Vol. 11.1 fl (6.2-12.0); Monocyte# 0.79 X10^3/uL; Monocyte% 3.8 % (0-10); NRBC Flagged by Analyzer 0 % (0-5); Neutrophil # 18.86 X10^3/uL (2.7-7.7); Neutrophil % 91.7 % (47-70); Platelet Count 223 K/mm3 (150-450); RBC Distribution Width CV 12.5 % (11.6-14.6); RBC Distribution Width SD 39.9 fl (35.1-43.9); Red Blood Count 4.36 M/mm3 (4.2-5.4); White Blood Count 20.6 K/mm3 (4.4-11.0)
[2024-05-17 14:34] LABS: Syphilis Antibodies Non-reactive
--- NOTE | 2024-05-17 22:31 | OB.TRI.NOTE ---
HPI - General General Date of Admission: 05/17/24 Date of Service: 05/17/24 Chief Complaint: contractions HPI Narrative ALVARO DAS, is a 34 F who presents with contractions after having episodes of nausea and vomiting. No fevers or severe pain. Had N/V this morning and is now having contractions. No vb, lof. No CAMPOVERDE or vision changes. Good FM. PFSH PFSH Medical History Anxiety and depression Chronic pain Contusion of arm, left GBS carrier History of herpes genitalis History of pre-eclampsia in prior , currently Insomnia Intractable chronic migraine without aura Migraines Non-smoker Pyloric stenosis VSD (ventricular septal defect) Home Medications ?Medication ?Instructions ?Recorded ?Last Taken ?Type prenat.vits,valeri,[id number] 1 tab PO DAILY 02/22/20 05/16/24 10:00 History topiramate 50 mg tablet (Topamax) 50 mg PO BID Check with primary 02/22/20 05/16/24 11:00 History doctor cholecalciferol (vitamin D3) 125 125 mcg PO DAILY 03/28/21 05/16/24 10:00 History mcg (5,000 unit) capsule pantoprazole 20 mg tablet,delayed 40 mg PO DAILY 05/17/24 05/17/24 08:00 History release (Protonix) valacyclovir 500 mg tablet 500 mg PO TID 05/17/24 05/16/24 22:00 History (Valtrex) Allergy/AdvReac Type Severity Reaction Status Date / Time cephalexin Allergy blisters Verified 05/17/24 11:43 latex Allergy Rash Verified 05/17/24 11:43 sertraline (From Zoloft) Allergy suicidal Verified 05/17/24 11:43 pediatric cocktail Allergy stopped Uncoded 07/31/23 10:20 her heart Family History Father MTHFR mutation Heart disease Grandmother CAD (coronary artery disease) maternal Grandfather CAD (coronary artery disease) paternal Uncle Heart disease Antiphospholipid antibody syndrome Uncle Heart disease Surgical History History of wisdom tooth extraction Social History Smoking Status: Never smoker alcohol intake: never substance use type: does not use caffeine: Yes Type: carbonated beverages and tea Number of servings: 6 History Elective abortions Hx Para 3 Spontaneous abortions Hx # Term Pregnancies Ectopic pregnancies Hx # Pregnancies Multiple births # of living children NST FHR Rate Baby A Baseline: 150 Variability:: Moderate Accelerations:: 15 x 15 Decelerations:: Variable (isolated when first placed on monitor) NST Reactive:: Yes Uterine Activity:: irregular ctx's Assessment & Plan (1) 35 weeks gestation of : PLAN: Cervix unchanged after monitoring. IVF hydration given. Has follow up this week in office. D/c home with return precautions. (2) Uterine contractions:
== END 2024-05-17 15:50 | disposition home or self-care (01) ==
LOC: WPOUT 11:17 → WP 11:18
PROVIDERS: PCP Family Medicine; Referring Provider Obstetrics & Gynecology; Visit Provider Obstetrics & Gynecology
DX: O47.03 False labor before 37 completed weeks of gestation, third trimester (principal); Z3A.35 35 weeks gestation of pregnancy; O98.313 Other infections with a predominantly sexual mode of transmission complicating pregnancy, third trimester; A60.00 Herpesviral infection of urogenital system, unspecified; Z79.899 Other long term (current) drug therapy
CPT/HCPCS: 96360; 36415; 59025; 59050; 85025; 86780; 86850; 86900; 86901; 99221; J7120; G0378

== ENCOUNTER 2024-06-02 16:11 | Inpatient (IN) | payer MEDICAID, SELFPAY ==
[2024-06-02] VITALS (53 sets, daily range): BP systolic 128–166; BP diastolic 77–104; PULSE 68–138; RESP 15–16; TEMP 36.6–36.9; O2SAT 96–100; BMI 27.1
[2024-06-02 15:54] LABS: ROM Internal Control Test YES-OK TO RESULT pt. (Internal QC)
[2024-06-02 15:56] LABS: ROM Patient Test POSITIVE (Negative); Record Kit Lot#, ROM+ K1866
[2024-06-02] MEDS: Lactated Ringers 1,000 ML 50 ML IV (17:05)
[2024-06-02 17:14] LABS: Absolute Neutrophil Count 9.1 X10^3/uL (2.0-7.7); Basophil# 0.05 X10^3/uL; Basophil% 0.4 % (0-1); Eosinophil# 0.03 X10^3/uL; Eosinophils% 0.2 % (0-5); Hematocrit 38.6 % (37-47); Hemoglobin 13.3 g/dL (12.0-15.0); Mean Corp Hgb Conc 34.5 g/dL (32-36); Mean Corpuscular Hgb 30.2 pg (27.0-32.0); Mean Corpuscular Volume 87.7 fL (81-99); Monocyte# 0.58 X10^3/uL; Monocyte% 4.8 % (0-10); NRBC Flagged by Analyzer 0 % (0-5); Neutrophil # 9.06 X10^3/uL (2.7-7.7); Neutrophil % 74.9 % (47-70); Platelet Count 366 K/mm3 (150-450); RBC Distribution Width CV 12.7 % (11.6-14.6); RBC Distribution Width SD 39.3 fl (35.1-43.9); White Blood Count 12.1 K/mm3 (4.4-11.0)
[2024-06-02] MEDS: Penicillin G Pot 5,000,000 UNITS in 0.9% Normal Saline (100mL MB+) 100 ML 150 UNITS IV (17:28)
[2024-06-02 17:47] LABS: Syphilis Antibodies Non-reactive
[2024-06-02] MEDS: Oxytocin 15 Units/NS 250ml 15 UNITS/250 ML IV.SOLN 2 UNITS IV (18:44)
[2024-06-02] MEDS: Ondansetron 4 MG/2 ML Vial IV (20:53)
[2024-06-02] MEDS: fentaNYL 100 MCG/2 ML Ampul IV (21:29)
--- NOTE | 2024-06-02 21:45 | PCM.HP.OB ---
HPI - General General Date of Admission: 06/02/24 Date of Service: 06/02/24 Chief Complaint: SROM HPI Narrative ALVARO DAS, is a 34 F who presents SROM at 2 cm. GBS positive. Keflex allergy but has received OCN in the past. No epidural desired. Maternal Data Information Final KI: 06/15/24 Gestational age: 38.1 PFSH PFS Medical History Pre-eclampsia Chronic pain Non-smoker Migraines Contusion of arm, left Pyloric stenosis History of herpes genitalis Anxiety and depression GBS carrier History of pre-eclampsia in prior , currently Insomnia Intractable chronic migraine without aura VSD (ventricular septal defect) Home Medications ?Medication ?Instructions ?Recorded ?Last Taken ?Type prenat.vits,valeri,[id number] 1 tab PO DAILY 02/22/20 05/16/24 10:00 History topiramate 50 mg tablet (Topamax) 50 mg PO BID Check with primary 02/22/20 05/16/24 11:00 History doctor cholecalciferol (vitamin D3) 125 125 mcg PO DAILY 03/28/21 05/16/24 10:00 History mcg (5,000 unit) capsule pantoprazole 20 mg tablet,delayed 40 mg PO DAILY 05/17/24 05/17/24 08:00 History release (Protonix) valacyclovir 500 mg tablet 500 mg PO TID 05/17/24 05/16/24 22:00 History (Valtrex) Allergy/AdvReac Type Severity Reaction Status Date / Time cephalexin Allergy blisters Verified 05/17/24 11:43 latex Allergy Rash Verified 05/17/24 11:43 sertraline (From Zoloft) Allergy suicidal Verified 05/17/24 11:43 pediatric cocktail Allergy stopped Uncoded 07/31/23 10:20 her heart Family History Father MTHFR mutation Heart disease Grandmother CAD (coronary artery disease) maternal Grandfather CAD (coronary artery disease) paternal Uncle Heart disease Antiphospholipid antibody syndrome Uncle Heart disease Surgical History History of wisdom tooth extraction Social History Smoking Status: Never smoker alcohol intake: never substance use type: does not use caffeine: Yes Type: carbonated beverages and tea Number of servings: 6 History Elective abortions Hx Para 4 Spontaneous abortions Hx # Term Pregnancies Ectopic pregnancies Hx # Pregnancies Multiple births # of living children NST FHR Rate Baby A Variability:: Moderate Accelerations:: 15 x 15 Decelerations:: None NST Reactive:: Yes FHR Category:: Category I Uterine Activity:: q3 ROS Constitutional Constitutional: Reports chills, fever(s) and malaise; Denies anorexia or weakness Cardiovascular Cardiovascular: Denies chest pain, edema, palpitations or syncope Respiratory/Chest Respiratory/Chest: Denies cough, shortness of breath at rest, shortness of breath with exertion or wheezing Gastrointestinal Gastrointestinal: Reports nausea and vomiting; Denies abdominal pain, constipation or diarrhea Genitourinary Genitourinary: Reports dysuria, flank pain and low back pain Musculoskeletal Musculoskeletal: Denies back pain, extremity pain, joint pain, joint stiffness or joint swelling Integumentary Integumentary: Denies dry skin Neurologic Neurologic: Denies abnormal gait, abnormal speech, confusion or dizziness Psychiatric Psychiatric: Denies anxiety or depression Endocrine Endocrinology: Denies change in body appearance Hematologic/Lymphatic Hematologic/Lymphatic: Denies anemia Vital Signs Vital Signs Vital Signs: 06/02/24 15:29 06/02/24 15:29 06/02/24 15:29 Temperature Temperature Source Tympanic Pulse Rate 71 Respiratory Rate Blood Pressure BP Systolic BP Diastolic Pulse Ox 97 06/02/24 15:29 06/02/24 15:29 06/02/24 15:29 Temperature 98.3 F Temperature Source Pulse Rate Respiratory Rate 15 Blood Pressure BP Systolic BP Diastolic Pulse Ox 100 06/02/24 15:34 06/02/24 15:34 06/02/24 15:39 Temperature Temperature Source Pulse Rate 75 72 Respiratory Rate Blood Pressure BP Systolic BP Diastolic Pulse Ox 97 06/02/24 15:39 06/02/24 15:44 06/02/24 15:44 Temperature Temperature Source Pulse Rate 79 Respiratory Rate Blood Pressure BP Systolic BP Diastolic Pulse Ox 97 98 06/02/24 15:49 06/02/24 15:49 06/02/24 15:54 Temperature Temperature Source Pulse Rate 69 75 Respiratory Rate Blood Pressure BP Systolic BP Diastolic Pulse Ox 98 06/02/24 15:54 06/02/24 15:59 06/02/24 15:59 Temperature Temperature Source Pulse Rate 87 Respiratory Rate Blood Pressure BP Systolic BP Diastolic Pulse Ox 98 98 06/02/24 16:04 06/02/24 16:04 06/02/24 16:09 Temperature Temperature Source Pulse Rate 74 78 Respiratory Rate Blood Pressure BP Systolic BP Diastolic Pulse Ox 98 06/02/24 16:09 06/02/24 16:14 06/02/24 16:14 Temperature Temperature Source Pulse Rate 83 Respiratory Rate Blood Pressure BP Systolic BP Diastolic Pulse Ox 99 99 06/02/24 16:19 06/02/24 16:19 06/02/24 16:29 Temperature Temperature Source Pulse Rate 81 Respiratory Rate Blood Pressure 140/91 H BP Systolic 140 BP Diastolic 91 Pulse Ox 98 06/02/24 16:29 06/02/24 17:17 06/02/24 17:17 Temperature Temperature Source Pulse Rate 72 68 Respiratory Rate Blood Pressure 154/99 H BP Systolic 154 BP Diastolic 99 Pulse Ox 06/02/24 19:20 06/02/24 19:20 06/02/24 19:20 Temperature Temperature Source Temporal Pulse Rate 72 Respiratory Rate Blood Pressure 128/82 H BP Systolic 128 BP Diastolic 82 Pulse Ox 06/02/24 19:20 06/02/24 19:20 06/02/24 20:20 Temperature 98.0 F Temperature Source Temporal Pulse Rate Respiratory Rate 16 Blood Pressure BP Systolic BP Diastolic Pulse Ox 06/02/24 20:20 06/02/24 20:20 06/02/24 20:20 Temperature Temperature Source Pulse Rate 73 Respiratory Rate 16 Blood Pressure 132/86 H BP Systolic 132 BP Diastolic 86 Pulse Ox 06/02/24 20:20 06/02/24 20:20 06/02/24 20:50 Temperature 97.8 F Temperature Source Pulse Rate 81 Respiratory Rate Blood Pressure BP Systolic BP Diastolic Pulse Ox 99 06/02/24 20:50 06/02/24 20:50 06/02/24 20:50 Temperature Temperature Source Pulse Rate 76 Respiratory Rate Blood Pressure BP Systolic BP Diastolic Pulse Ox 99 98 06/02/24 21:13 06/02/24 21:13 06/02/24 21:18 Temperature Temperature Source Pulse Rate 86 138 H Respiratory Rate Blood Pressure BP Systolic BP Diastolic Pulse Ox 99 06/02/24 21:18 06/02/24 21:27 06/02/24 21:27 Temperature Temperature Source Pulse Rate 92 Respiratory Rate Blood Pressure 141/77 H BP Systolic 141 BP Diastolic 77 Pulse Ox 97 06/02/24 21:28 06/02/24 21:28 06/02/24 21:33 Temperature Temperature Source Pulse Rate 88 82 Respiratory Rate Blood Pressure BP Systolic BP Diastolic Pulse Ox 98 06/02/24 21:33 06/02/24 21:38 06/02/24 21:38 Temperature Temperature Source Pulse Rate 98 Respiratory Rate Blood Pressure BP Systolic BP Diastolic Pulse Ox 98 96 06/02/24 21:40 06/02/24 21:40 06/02/24 21:40 Temperature 98.4 F Temperature Source Temporal Pulse Rate Respiratory Rate 16 Blood Pressure BP Systolic BP Diastolic Pulse Ox 06/02/24 21:43 06/02/24 21:43 06/02/24 21:43 Temperature Temperature Source Pulse Rate 80 Respiratory Rate Blood Pressure 160/103 H BP Systolic 160 BP Diastolic 103 Pulse Ox 96 Weight Weight: 71.668 kg Body Mass Index (BMI) 27.1 Physical Exam Const alert and no apparent distress General Appearance: cooperative HEENT normocephalic Resp normal respiratory effort Cardio regular rate GI soft to palpation GI Narrative: gravid, nontender, appropriate for gestational age Extremity no calf tenderness General Extremity: edema Skin no wounds Rashes: No rashes noted Psych activity/motor behavior normal Labs Labs Labs: Blood Type B POSITIVE Antibody Screen NEGATIVE Hct 38.6 % (37-47) Hgb 13.3 g/dL (12.0-15.0) Syphilis Total Ab Non-reactive Group B Strep DNA Negative (Negative) Rhogam given: No Assessment & Plan (1) SROM (spontaneous rupture of membranes): (2) 38 weeks gestation of : (3) Positive GBS test: PLAN: Plan Augmentation of labor GBS positive- PCN No epidural
--- NOTE | 2024-06-02 21:45 | EX.PCM.OBRPT ---
Assessment & Plan (1) (spontaneous vaginal delivery): (2) Positive GBS test: (3) 38 weeks gestation of : PLAN: Plan Routine care Maternal Data Information Final KI: 06/15/24 Gestational age: 38.1 Vaginal Delivery Maternal Presentation Maternal Presentation: Spontaneous Rupture of Membranes Type of Induction: Pitocin Operative Information Date of Procedure: 06/02/24 Pre-Operative Diagnosis: SROM Post-Operative Diagnosis: SROM Surgery / Procedure Performed: Spontaneous Vaginal Delivery Type of Anesthesia: None Estimated Blood Loss: 100 cc Time of Delivery: 21:18 Findings Description of Procedure: Patient presented with SROM at 2 cm. PCN and Pitocin were started. She made change to 4 cm and quickly progressed to complete. She delivered in hands and knees. The shoulders delivered without difficulty. There was a loose cord around the neck. The cord was clamped and cut. The placenta delivered with gentle traction. There were no lacerations. Presentation: Vertex and KALANI Amniotic Membrane Rupture Type: Spontaneous Amniotic Fluid Description: Clear Placental Delivery Description: Spontaneous Placenta Disposition: [facility] Cord Vessel Description: 3 Vessels Cord Entanglement: Around neck x 1, loose Nuchal Cord Compression: Without compression A Gender: Female (1 minute): 8 (5 minute): 9 Delayed Cord Clamping: Yes Post Vaginal Delivery Medications Given After Delivery: IV Pitocin Episiotomy Description: None Laceration: None Complication Complications: None
[2024-06-02] MEDS: Oxytocin 15 Units/NS 250ml 15 UNITS/250 ML IV.SOLN 83 UNITS IV (21:56)
[2024-06-02] MEDS: Acetaminophen 500 MG Tablet 1000 MG PO (23:06)
[2024-06-02] MEDS: Ibuprofen 600 MG Tablet PO (23:06)
[2024-06-02] MEDS: Methylergonovine 0.2 MG/ML Ampul IM (23:39)
[2024-06-02] MEDS: Topiramate 50 MG Tablet PO (23:39)
[2024-06-03 04:29] VITALS: BP 125/86; PULSE 82; RESP 16
[2024-06-03] MEDS: Ibuprofen 600 MG Tablet PO (06:06)
[2024-06-03] MEDS: Acetaminophen 500 MG Tablet 1000 MG PO ×3 (06:07→23:08)
--- NOTE | 2024-06-03 08:30 | PN_ITS ---
Subjective Subjective patient seen at bedside, doing well. Patient reports good pain control. lochia mild. Objective Data Objective Data Vital Signs: Vital Signs Temp Pulse Resp BP Pulse Ox O2 Del Method 98.4 F 82 16 125/86 H 100 Room Air 06/02/24 21:40 06/03/24 04:29 06/03/24 04:29 06/03/24 04:29 06/02/24 23:23 06/03/24 04:29 Oxygen Delivery Method Room Air Weight: 71.668 kg Body Mass Index (BMI) 27.1 Intake & Output: Intake and Output for Last 24 Hours 06/01/24 06/02/24 06/03/24 23:59 23:59 23:59 Intake Total 510.13 / 510.13 250 / 250 Output Total 100 / 100 Balance 410.13 / 410.13 250 / 250 Lab / Micro Data 06/02/24 17:02 Labs: Laboratory Results - last 24 hr 06/02/24 15:25: Vag Amniotic Fld Detect POSITIVE H 06/02/24 17:02: WBC 12.1 H, RBC 4.40, Hgb 13.3, Hct 38.6, MCV 87.7, MCH 30.2, MCHC 34.5, RDW Std Deviation 39.3, RDW Coeff of David 12.7, Plt Count 366, MPV 11.0, Immature Gran % (Auto) 0.700, Neut % (Auto) 74.9 H, Lymph % (Auto) 19.0, [place] % (Auto) 4.8, Eos % (Auto) 0.2, Baso % (Auto) 0.4, Absolute Neuts (auto) 9.1 H, Absolute Lymphs (auto) 2.30, Nucleated RBC % 0, Syphilis Total Ab Non- reactive, Blood Type B POSITIVE, Antibody Screen NEGATIVE Physical Exam Const alert and oriented x3 General Appearance: cooperative HEENT normocephalic Neck General: normal visual inspection GI soft to palpation and non-distended GI Narrative: Fundus firm Extremity normal to inspection and no calf tenderness Skin no rashes or lesions noted Neuro oriented x3 and CN's II-XII intact bilaterally Psych mental status grossly normal Assessment & Plan Assessment/Plan (1) (spontaneous vaginal delivery): (2) Positive GBS test: PLAN: Plan PPD# 1 , Doing well Routine care pain mgmt ambulation
[2024-06-03 08:40] VITALS: BP 119/91; PULSE 82; RESP 16; TEMP 36.6; O2SAT 98
[2024-06-03] MEDS: Topiramate 50 MG Tablet PO ×2 (09:23→22:00)
[2024-06-03] MEDS: Pantoprazole Sodium 40 MG Tablet PO (09:23)
[2024-06-03 10:00] VITALS: BP 122/88; PULSE 106; RESP 14; TEMP 36.8; O2SAT 96
[2024-06-03 17:16] VITALS: BP 118/82; PULSE 94; RESP 16; TEMP 37.1; O2SAT 98
[2024-06-03] MEDS: Citalopram 20 MG Tablet PO (22:00)
[2024-06-03 22:02] VITALS: BP 123/87; PULSE 83; RESP 16; TEMP 36.7; O2SAT 98
[2024-06-04 02:29] VITALS: BP 128/87; PULSE 84; RESP 16; TEMP 36.6; O2SAT 98
[2024-06-04] MEDS: Acetaminophen 500 MG Tablet 1000 MG PO (08:41)
[2024-06-04 08:42] VITALS: BP 121/86; PULSE 91; RESP 16; TEMP 36.9; O2SAT 98
--- NOTE | 2024-06-04 08:42 | PCM.DC.SUM ---
Providers Date of Admission: 06/02/24 Primary Care Physician: Dr. Manuel Sen MD Reason For Visit: LABOR AND DELIVERY Diagnosis Discharge Diagnosis (1) (spontaneous vaginal delivery): Status: Acute Code(s): O80 - Encounter for full-term uncomplicated delivery (2) Positive GBS test: Status: Acute Code(s): B95.1 - Streptococcus, group B, as the cause of diseases classified elsewhere Medications at Discharge Home Medications prenat.vits,valeri,[id number] 1 tab PO DAILY 02/22/20 topiramate 50 mg tablet (Topamax) 50 mg PO BID Check with primary doctor 02/22/20 cholecalciferol (vitamin D3) 125 mcg (5,000 unit) capsule 125 mcg PO DAILY 03/28/21 pantoprazole 20 mg tablet,delayed release (Protonix) 40 mg PO DAILY 05/17/24 valacyclovir 500 mg tablet (Valtrex) 500 mg PO TID 05/17/24 acetaminophen 500 mg tablet (Tylenol Extra Strength) 1,000 mg (2 x 500 mg) PO Q6H PRN PRN pain 30 days #30 tabs 06/04/24 Hospital Course Operations None Procedures None Summary of Care Provided Minutes Spent on Discharge: 21 Hospital Course: 34-year-old multigravida presented at 38 and 1 sevenths weeks gestation with spontaneous rupture membranes on 06/02/2024. She progressed rapidly in labor and had a spontaneous vaginal delivery weight on 06/02/2024 without complication. On 06/04/2024, day #2 patient was ambulating, urinating tolerating regular diet without difficulty. was breast-feeding doing well. She desires discharge home. She was discharged home with routine prescriptions and instructions and to follow-up in the office within 1 week. Physical Exam Narrative Pain well-controlled, mild lochia, mild headache behind her eyes, states she just feels like this is a headache from not sleeping well. No visual changes or epigastric pain. No nausea or vomiting. Const alert and no apparent distress Narrative: Fundus firm, below umbilicus. Extremity Extremity Narrative: Extremities 1+ edema, 2+ DTRs no clonus Weight / BMI Weight Weight: 71.668 kg Body Mass Index (BMI) 27.1 ABG / Lab / Microbiology Data 06/02/24 17:02 D/C Instructions May resume sexual activity in: 6 weeks Please Follow Up With: Keerthi Cruz MD When: Follow up with our office in 1-2 and 6 weeks or as needed. [phone] call or send a [employer] message as needed for none urgent issues Meaningful Use Info Meaningful Use Meaningful Use Diagnoses (Choose all that apply): None applicable Ischemic Stroke Statin Dosing Therapy Reference: STATIN DOSE THERAPY REFERENCE: * Patients > 75 years receive moderate or high dose statin therapy. * Patients 75 years or YOUNGER should receive HIGH intensity statin dose unless contraindicated. You will be required to document reason for non-treatment if statin daily dose does not meet guidelines. HIGH DOSE STATIN THERAPY DAILY Atorvastatin > than or = to 40 mg Rosuvastatin > than or = to 20 mg Amlodipine + Atorvastatin > than or = to 2.5/40 mg Ezetimibe + Simvastatin 10/80 mg Simvastatin 80mg Discharge Plan Admission Admit Date/Time: 06/02/24 16:11 Primary Reason for Your Visit: Vaginal delivery Attending Provider: Keerthi Cruz Primary Care Provider: Manuel Sen Discharge Orders/Prescriptions Prescriptions: New acetaminophen [Tylenol Extra Strength] 500 mg tablet 1,000 mg PO Q6H PRN MDD 4000 mg PRN (Reason: pain) 30 Days Qty: 30 0RF Continued prenat.vits,valeri,tfu-lgqg-yokxx Tablet 1 tab PO DAILY topiramate [Topamax] 50 mg tablet 50 mg PO BID cholecalciferol (vitamin D3) 125 mcg (5,000 unit) capsule 125 mcg PO DAILY pantoprazole [Protonix] 20 mg tablet,delayed release (DR/EC) 40 mg PO DAILY valacyclovir [Valtrex] 500 mg tablet 500 mg PO TID Referrals / Follow Up: Manuel Sen MD [Primary Care Provider] - Disposition Disposition (needs filled in before D/C Order can be placed): Home, Self Care
[2024-06-04] MEDS: Topiramate 50 MG Tablet PO (09:53)
[2024-06-04] MEDS: Pantoprazole Sodium 40 MG Tablet PO (09:54)
== END 2024-06-04 12:45 | disposition home or self-care (01) | DRG 560 ==
PROVIDERS: Admitting Provider Obstetrics & Gynecology; PCP Family Medicine; Referring Provider Obstetrics & Gynecology; Visit Provider Obstetrics & Gynecology
DX: O99.824 Streptococcus B carrier state complicating childbirth (principal); Z37.0 Single live birth; O69.81X0 Labor and delivery complicated by cord around neck, without compression, not applicable or unspecified; Z3A.38 38 weeks gestation of pregnancy; Z79.899 Other long term (current) drug therapy
CPT/HCPCS: 59025; 59050; 84112; 85025; 86780; 86850; 86900; 86901; 99221; G0378; J2405

== ENCOUNTER 2025-05-18 16:30 | Outpatient (RCR) | payer MEDICAID, SELFPAY ==
--- NOTE | 2025-01-11 14:02 | HP.PTEVAL ---
Patient's Visit Information Visit Information Visit Information: ALVARO DAS is a 34 year old F referred to Physical Therapy by Dr. Manuel Sen MD with a diagnosis of NECK PAIN. Date of Evaluation: 01/11/25 Physical Therapist: Brennan Dodson PT, Cert MDT, OCS Visit Plan Frequency: 2x /Week Duration: 4 Weeks Plan: ALERGY LATEX ( PRECAUTION) PT INTERVENTIONS MANUAL THERAPY CERVICAL STM/TRACTION ,ÁNGELA EX'S ,POSTURAL EX'S ,US ,AND STRENGTHENING Subjective Subjective: This 34 y/o female presents to physical therapy for neck pain. Patient has cervical pain for several years. Patient get muscle tension in shoulders and get CAMPOVERDE temporal. Seen DR recommended PT and prescribed medication for migraines. Did x-rays DDD . Patient had baby in May. Patient seen [facility] CAMPOVERDE specialist.Denies tinnitus/nausea and min dizziness . Aggravating factors lights, stress, children , work demands of home life and work demands and families issue. Alleviating factors activity. Denies paresthesia/tingling-. Patient symptoms affects sleeping. Patient has no trauma or injury. Patient condition affects QOL and function.Patient goals to decrease pain and CAMPOVERDE. 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 Pain Bilateral Neck: Pain Intensity (Out of 10): 7 Pain Intensity Range: 10 Objective Objective: POSTURE: mild forward posture ,rounded shoulders head forward PALAPTION: tender UT/levator/occiput/paraspinals/occiput NEURO: denies paresthesia/tingling ,reflexes C5-6-7 2/2 AROM: BUE WFL MMT: BUE grossly 4/5 CERVICAL ROM: flexion min loss ,extension min loss ,rotation min loss pain ,lateral flexion min loss ,retraction min loss Special Tests C/S Radiculapathy - Left Upper limb tension test: Negative C/S Radiculapathy - Right Upper limb tension test: Negative C/S Radiculapathy - Left Spurlings: Negative C/S Radiculapathy - Left Cervical distraction: Negative C/S Radiculapathy - Right Cervical distraction: Negative C/S Radiculapathy - Left Relief test: Negative C/S Radiculapathy - Right Relief test: Negative Sharp Irina: Negative Vertebral Artery Test: Negative Alar Ligament Test: Negative Cervical Sitting: Protrusion - Mechanical Response: No effect Cervical Sitting: Protrusion - Symptoms During Testing: Increases Cervical Sitting: Protrusion - Symptoms After Testing: No worse Cervical Sitting: Retraction - Mechanical Response: No effect Cervical Sitting: Retraction - Symptoms During Testing: Increases Cervical Sitting: Retraction - Symptoms After Testing: No worse Comments:: stretching ER Cervical Sitting: Retraction-Extension - Mechanical Response: No effect Cerv Sitting: Retraction-Extension - Symptoms During Testing: Increases Cerv Sitting: Retraction-Extension - Symptoms After Testing: No worse Cervical Sitting: Sidebend Right - Mechanical Response: No effect Cervical Sitting: Sidebend Right - Symptoms During Testing: Increases Cervical Sitting: Sidebend Right - Symptoms After Testing: No worse Cervical Sitting: Sidebend Left - Mechanical Response: No effect Cervical Sitting: Sidebend Left - Symptoms During Testing: Increases Cervical Sitting: Sidebend Left - Symptoms After Testing: No worse Cervical Sitting: Rotation Right - Mechanical Response: No effect Cervical Sitting: Rotation Right - Symptoms During Testing: Increases Cervical Sitting: Rotation Right - Symptoms After Testing: No worse Cervical Sitting: Rotation Left - Mechanical Response: No effect Cervical Sitting: Rotation Left - Symptoms During Testing: Increases Cervical Sitting: Rotation Left - Symptoms After Testing: No worse Cervical Sitting: Flexion - Mechanical Response: No effect Cervical Sitting: Flexion - Symptoms During Testing: Increases Cervical Sitting: Flexion - Symptoms After Testing: No worse L/S Slump test left side: Negative L/S Slump test right side: Negative L/S Left Straight Leg Raise: Negative L/S Right Straight Leg Raise: Negative Balance/Special Test Scores Oswestry Neck Score: 19 Goals Goal 1:: Patient to be I with HEP for neck and CAMPOVERDE Goal Time Frame: 4-6 Weeks Goal 2:: Patient decrease CAMPOVERDE and neck symptoms by 50% or > to improve QOL and function Goal Time Frame: 4-6 Weeks Goal 3:: 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 Goal Time Frame: 4-6 Weeks Rehabilitation Potential Physical Therapy Diagnosis: Patient has CAMPOVERDE and neck from muscle tension with decrease ROM, pain ,tightness UT/levator/occiput Rehabilitation Potential: Good Anticipated Interventions Patient/Client Instruction: Educate patient on: Condition and Plan of Care For the Purpose of:: To decrease pain, To increase ROM, To improve muscle performance and motor function, To increase tolerance to activity/condition/position, To improve ability of physical actions for home/community/work/leisure, To improve health of tissue, To decrease soft tissue restriction and To increase flexibility/ROM Therapeutic Exercise to Include: Strength training, Postural training, Flexibilty training, Active ROM and Scapular Strength/Stabilization For the Purpose of:: To decrease pain, To increase ROM, To improve muscle performance and motor function, To improve ability to perform ADL's, To increase tolerance to activity/condition/position, To improve ability of physical actions for home/community/work/leisure, To improve health of tissue, To decrease soft tissue restriction, To increase flexibility/ROM and To improve tolerance to ADL's Manual Therapy Techniques to Include: Mobilization and Soft tissue mobilization For the Purpose of:: To decrease pain, To increase ROM, To improve nutrient delivery to tissue, To increase oxygenation perfusion, To improve health of tissue, To decrease soft tissue restriction and To increase flexibility/ROM TENS: Yes IF ES: Yes Cryotherapy (ice pack, ice massage): Yes Thermo therapy (hot pack): Yes Ultrasound (thermal/non thermal): Yes For the Purpose of:: To decrease pain, To increase ROM, To improve nutrient delivery to tissue, To increase oxygenation perfusion, To improve health of tissue and To decrease soft tissue restriction Text: Thank you for the opportunity to evaluate your patient. For Medicare and Medicare HMO plans, please review the plan of care and approve it. It will need to be FAXED BACK to us at [phone] for Medicare purposes. For Medicare only, by signing this I certify the plan of care. Please let me know if there are questions or concerns regarding this plan of care. Physician Signature: Date:
--- NOTE | 2025-03-24 18:02 | HP.PTREVAL ---
Re-Evaluation Intro: Dr. Manuel Sen MD, It has been my pleasure to treat ALVARO DAS over the last 13 visits for NECK PAIN. Please see the progress note below for an update on the physical therapy plan of care! Subjective Subjective: PT is helping Right side pain cramp -c/o right side neck pain and CAMPOVERDE -Naproxen as need 2x week Objective Objective/Function: POSTURE: mild forward posture ,rounded shoulders head forward Patient making progress with CAMPOVERDE 2xweek and less pain 60% but could cot to benefit from skilled PT with goals adjusted and appropraite PALAPTION: tender levator/occiput/paraspinals UT improved NEURO: denies paresthesia/tingling ,reflexes C5-6-7 2/2 AROM: BUE WFL MMT: BUE grossly 4/5 CERVICAL ROM: flexion min loss ,extension WFL ,rotation min/mod right ,left min loss ,lateral flexion mod loss ,retraction Plan Plan Plan: Requesting 10 visits SUJEYRROSA LATEX ( PRECAUTION) PT INTERVENTIONS MANUAL THERAPY CERVICAL STM/TRACTION ,ÁNGELA EX'S ,POSTURAL EX'S ,US ,AND STRENGTHENING Balance/Gait/Functional tests Balance/Special Test Scores Oswestry Neck Score: 16 Goals Goals Goal 1:: Patient to be I with HEP for neck and CAMPOVERDE Goal Time Frame: 4-6 Weeks Goal Progress: Progressing Goal 2:: Patient decrease CAMPOVERDE and neck symptoms by 70% or > to improve QOL and function( new goal) Goal Time Frame: 4-6 Weeks Goal Progress: Progressing Goal 3:: 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 Goal Time Frame: 4-6 Weeks Goal Progress: Progressing Anticipated Interventions Anticipated Interventions Patient/Client Instruction: Educate patient on: Condition and Plan of Care For the Purpose of:: To decrease pain, To increase ROM, To improve muscle performance and motor function, To increase tolerance to activity/condition/position, To improve ability of physical actions for home/community/work/leisure, To improve health of tissue, To decrease soft tissue restriction and To increase flexibility/ROM Therapeutic Exercise to Include: Strength training, Postural training, Flexibilty training, Active ROM and Scapular Strength/Stabilization For the Purpose of:: To decrease pain, To increase ROM, To improve muscle performance and motor function, To improve ability to perform ADL's, To increase tolerance to activity/condition/position, To improve ability of physical actions for home/community/work/leisure, To improve health of tissue, To decrease soft tissue restriction, To increase flexibility/ROM and To improve tolerance to ADL's Manual Therapy Techniques to Include: Mobilization and Soft tissue mobilization For the Purpose of:: To decrease pain, To increase ROM, To improve nutrient delivery to tissue, To increase oxygenation perfusion, To improve health of tissue, To decrease soft tissue restriction and To increase flexibility/ROM TENS: Yes IF ES: Yes Cryotherapy (ice pack, ice massage): Yes Thermo therapy (hot pack): Yes Ultrasound (thermal/non thermal): Yes For the Purpose of:: To decrease pain, To increase ROM, To improve nutrient delivery to tissue, To increase oxygenation perfusion, To improve health of tissue and To decrease soft tissue restriction Re-Evaluation Ending Re-evaluation ending: Please do not hesitate to contact me at [phone] by phone or if you have questions or concerns regarding this new plan of care! Sincerely, Brennan Dodson, PT, Cert MDT, OCS
--- NOTE | 2025-05-18 16:55 | HP.PTDCSUM ---
Discharge Summary D/C summary: It has been my pleasure to treat ALVARO DAS referred by Dr. Manuel Sen MD, with the diagnosis of NECK PAIN for a total of 20 visit(s). Discharge Date: 05/18/25 Please see the following information for a summary of their discharge status. Subjective Subjective: CAMPOVERDE ALOT BETTER Occasional sharp pain which was new symptoms Doing over all better Pain Bilateral Neck: Pain Intensity (Out of 10): 2 Right Shoulder: Pain Intensity (Out of 10): 0 Overall Improvement % Improvement: 60 Objective Objective/Function: POSTURE: mild forward posture ,rounded shoulders head forward PALAPTION: tender levator/occiput/paraspinals UT improved NEURO: denies paresthesia/tingling ,reflexes C5-6-7 2/2 AROM: BUE WFL MMT: BUE grossly 4/5 CERVICAL ROM: flexion WFL ,extension WFL ,rotation min/mod right ,left min loss ,lateral flexion mod loss ,retraction WFL Goals Goal 1:: Patient to be I with HEP for neck and CAMPOVERDE Goal Progress: Goal Met Goal 2:: Patient decrease CAMPOVERDE and neck symptoms by 70% or > to improve QOL and function( new goal) Goal Progress: Goal Met Goal 3:: 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 Goal Progress: Goal Met Plan Plan: D/C TO HEP D/C Information Discharge Comments: HEP d/c sentence: If there are questions or concerns regarding this patient's physical therapy, please feel free to call me at [phone]. Thank you for the referral of this patient. Sincerely, Brennan Dodson, PT, Cert MDT, OCS Balance/Gait/Functional tests Balance/Special Test Scores Oswestry Neck Score: 7 Improvement % Improvement: 60
== END 2025-05-18 19:00 | disposition home or self-care (01) ==
LOC: PT 16:30
PROVIDERS: PCP Family Medicine; Referring Provider Family Medicine; Visit Provider Family Medicine
DX: M54.2 Cervicalgia (principal)
CPT/HCPCS: 97110; 97140; 97162; 97530